=== PATIENT | male | born 1975 | race Caucasian/White ===

== ENCOUNTER → 2019-03-18 | Outpatient (CLI) | payer OTHER ==
[~2019-03-18] MED LIST: Bactrim Ds Tab1 EACH PO; Naprosyn500 MG PO; Percocet 5-3251 EACH PO; Ultram50 MG PO
[2019-03-18 14:12] LABS: BASOPHILS ABSOLUTE AUTO 0.05 K/mm3 (0.00-0.23); BASOPHILS PERCENT AUTO 1 % (0-2); EOSINOPHILS ABSOLUTE AUTO 0.02 K/mm3 (0.00-0.68); EOSINOPHILS PERCENT AUTO 0 % (0-6); Hematocrit 49.1 % (37.0-53.0); Hemoglobin 17.4 g/dL (13.5-17.5); IMMATURE GRAN ABSOLUTE AUTO 0.03 K/mm3 (0.00-0.10); IMMATURE GRAN PERCENT AUTO 0 % (0-1); LYMPHOCYTES ABSOLUTE AUTO 1.91 K/mm3 (0.84-5.20); LYMPHOCYTES PERCENT AUTO 19 % (21-46); MONOCYTES ABSOLUTE AUTO 0.59 K/mm3 (0.16-1.47); MONOCYTES PERCENT AUTO 6 % (4-13); Mean Corpuscular HGB 32.8 pg (26.0-34.0); Mean Corpuscular HGB Conc 35.4 g/dL (31.5-36.5); Mean Corpuscular Volume 93 fL (80-100); Mean Platelet Volume 9.5 fL (9.1-12.4); NEUTROPHILS ABSOLUTE AUTO 7.74 K/mm3 (1.96-9.15); NEUTROPHILS PERCENT AUTO 75 % (41-73); Platelet Count 418 K/mm3 (150-400); RDW Coefficient Variation 11.5 % (11.7-14.2); RDW Standard Deviation 38.9 fL (35.1-46.3); Red Blood Cell Count 5.31 M/mm3 (4.30-5.90); White Blood Cell Count 10.34 K/mm3 (4.00-11.30)
[2019-03-18 14:28] LABS: Alanine Aminotransfer (ALT/SGP 28 U/L (12-78); Albumin, Blood 4.1 g/dL (3.4-5.0); Albumin/Globulin Ratio 1.2 (0.8-1.8); Alk Phos 103 U/L (40-126); Anion Gap 14 mmol/L (6-16); Aspartate Aminotrans (AST/SGOT 25 U/L (12-37); Bilirubin, Total 0.4 mg/dL (0.1-1.0); Blood Urea Nitrogen 8 mg/dL (8-24); Bun/Creatinine Ratio 8.9 (12.0-20.0); CO2, Blood 28 mmol/L (21-32); Calcium, Blood 9.8 mg/dL (8.5-10.1); Chloride, Blood 97 mmol/L (98-108); Globulin, Blood 3.5 g/dL (2.2-4.0); Glomerular Filtration Rate >60 (60-); Glucose, Blood 91 mg/dL (70-99); Potassium, Blood 3.8 mmol/L (3.5-5.5); Sodium, Blood 139 mmol/L (136-145); Thyroid Stimulating Hormone 1.816 uIU/mL (0.360-4.800); Total Protein, Blood 7.6 g/dL (6.4-8.2)
[2019-03-19 06:35] LABS: Adenovirus F 40/41 Not Detected (NOT DETECT); Astrovirus Not Detected (NOT DETECT); Campylobacter Sp Not Detected (NOT DETECT); Cryptosporidium Not Detected (NOT DETECT); Cyclospora Cayetanensis Not Detected (NOT DETECT); E. Coli O157 Not Detected (NOT DETECT); Entamoeba Histolytica Not Detected (NOT DETECT); Enteroaggregative E. coli-EAEC Not Detected (NOT DETECT); Enteropathogenic E. coli-EPEC Not Detected (NOT DETECT); Enterotoxigenic E. coli-ETEC Not Detected (NOT DETECT); Giardia Lamblia Not Detected (NOT DETECT); Norovirus GI/GII Not Detected (NOT DETECT); Plesiomonas Shigelloides Not Detected (NOT DETECT); Rotavirus A Not Detected (NOT DETECT); Salmonella Sp Not Detected (NOT DETECT); Sapovirus Not Detected (NOT DETECT); Shiga Toxin-prod E. coli-STEC Not Detected (NOT DETECT); Shigella/Enteroin E. coli-EIEC Not Detected (NOT DETECT); Vibrio Cholerae Not Detected (NOT DETECT); Vibrio Sp Not Detected (NOT DETECT); Yersinia Enterocolitica Not Detected (NOT DETECT)
== END | disposition home or self-care (01) ==
LOC: LAB SHORT 14:02 → LAB EV 14:02
PROVIDERS: General Practice
DX: R11.10 Vomiting, unspecified (principal); R19.7 Diarrhea, unspecified
CPT/HCPCS: 80053; 84439; 84443; 85025; 85651; 87507

== ENCOUNTER 2019-04-26 07:07 | Day surgery (SDC) | payer OTHER ==
[~2019-04-26] VITALS: Ht 177.8 cm; Wt 62.3 kg
== END 2019-04-26 09:10 | disposition home or self-care (01) ==
LOC: ORSCSDS 07:07
PROVIDERS: Student in an Organized Health Care Education/Training Program
PROC: 0DB98ZX Excision of Duodenum, Via Natural or Artificial Opening Endoscopic, Diagnostic (ICD-10-PCS; principal; 2019-04-26 08:30)
PROC: 0DB58ZX Excision of Esophagus, Via Natural or Artificial Opening Endoscopic, Diagnostic (ICD-10-PCS; principal; 2019-04-26 08:30)
PROC: 0DB68ZX Excision of Stomach, Via Natural or Artificial Opening Endoscopic, Diagnostic (ICD-10-PCS; principal; 2019-04-26 08:30)
DX: R11.2 Nausea with vomiting, unspecified (principal); R19.7 Diarrhea, unspecified; B96.81 Helicobacter pylori [H. pylori] as the cause of diseases classified elsewhere; K26.9 Duodenal ulcer, unspecified as acute or chronic, without hemorrhage or perforation; K29.80 Duodenitis without bleeding; R63.4 Abnormal weight loss; K20.9 Esophagitis, unspecified; K29.70 Gastritis, unspecified, without bleeding; F17.210 Nicotine dependence, cigarettes, uncomplicated
CPT/HCPCS: 88305; 88312; 88342; J0461; J2405; J2704; J7120

== ENCOUNTER 2019-06-02 20:56 | Emergency (ER) | payer OTHER ==
[~2019-06-02] VITALS: Ht 177.8 cm; Wt 63.0 kg
[2019-06-02] MEDS ORDERED: PROM25 (21:07)
[2019-06-02 21:54] LABS: BASOPHILS ABSOLUTE AUTO 0.05 K/mm3 (0.00-0.23); BASOPHILS PERCENT AUTO 0 % (0-2); EOSINOPHILS ABSOLUTE AUTO 0.02 K/mm3 (0.00-0.68); EOSINOPHILS PERCENT AUTO 0 % (0-6); Hematocrit 42.9 % (37.0-53.0); Hemoglobin 15.1 g/dL (13.5-17.5); IMMATURE GRAN ABSOLUTE AUTO 0.06 K/mm3 (0.00-0.10); IMMATURE GRAN PERCENT AUTO 0 % (0-1); LYMPHOCYTES ABSOLUTE AUTO 1.67 K/mm3 (0.84-5.20); LYMPHOCYTES PERCENT AUTO 11 % (21-46); MONOCYTES ABSOLUTE AUTO 0.53 K/mm3 (0.16-1.47); MONOCYTES PERCENT AUTO 4 % (4-13); Mean Corpuscular HGB 32.8 pg (26.0-34.0); Mean Corpuscular HGB Conc 35.2 g/dL (31.5-36.5); Mean Corpuscular Volume 93 fL (80-100); Mean Platelet Volume 9.2 fL (9.1-12.4); NEUTROPHILS ABSOLUTE AUTO 12.38 K/mm3 (1.96-9.15); NEUTROPHILS PERCENT AUTO 84 % (41-73); Platelet Count 427 K/mm3 (150-400); RDW Coefficient Variation 11.9 % (11.7-14.2); RDW Standard Deviation 41.1 fL (35.1-46.3); Red Blood Cell Count 4.61 M/mm3 (4.30-5.90); White Blood Cell Count 14.71 K/mm3 (4.00-11.30)
[2019-06-02 22:09] LABS: Alanine Aminotransfer (ALT/SGP 26 U/L (12-78); Albumin, Blood 3.9 g/dL (3.4-5.0); Albumin/Globulin Ratio 1.2 (0.8-1.8); Alk Phos 91 U/L (50-136); Anion Gap 8 mmol/L (6-16); Aspartate Aminotrans (AST/SGOT 18 U/L (12-37); Bilirubin, Total 0.4 mg/dL (0.1-1.0); Blood Urea Nitrogen 13 mg/dL (8-24); Bun/Creatinine Ratio 15.6 (12.0-20.0); CO2, Blood 29 mmol/L (21-32); Calcium, Blood 9.4 mg/dL (8.5-10.1); Chloride, Blood 103 mmol/L (98-108); Creatinine, Blood 0.84 mg/dL (0.60-1.20); Globulin, Blood 3.2 g/dL (2.2-4.0); Glomerular Filtration Rate >60 (60-); Glucose, Blood 102 mg/dL (70-99); Potassium, Blood 3.4 mmol/L (3.5-5.5); Sodium, Blood 140 mmol/L (136-145); Total Protein, Blood 7.1 g/dL (6.4-8.2)
[2019-06-02] MEDS ORDERED: ONDA4ODT MM (23:27)
== END 2019-06-02 23:39 | disposition home or self-care (01) ==
LOC: ER 20:56
PROVIDERS: Physician Assistant
DX: R11.2 Nausea with vomiting, unspecified (principal); R19.7 Diarrhea, unspecified; Z79.899 Other long term (current) drug therapy; F17.200 Nicotine dependence, unspecified, uncomplicated
CPT/HCPCS: 36415; 80053; 85025; 87338; 96361; 96374; 99284-25; A9270-GY; J2405; J7030

== ENCOUNTER 2019-09-21 10:03 | Inpatient (IN) | payer OTHER ==
[~2019-09-21] VITALS: Ht 177.8 cm; Wt 54.0 kg
[~2019-09-21 10:03] MED LIST changes: +ONDA4ODT MM; +PROM25
[2019-09-21] MEDS ORDERED: ESOM20 PO (10:22)
[2019-09-21 13:02] LABS: BASOPHILS ABSOLUTE AUTO 0.07 K/mm3 (0.00-0.23); BASOPHILS PERCENT AUTO 0 % (0-2); EOSINOPHILS ABSOLUTE AUTO 0.05 K/mm3 (0.00-0.68); EOSINOPHILS PERCENT AUTO 0 % (0-6); Hematocrit 54.8 % (37.0-53.0); IMMATURE GRAN ABSOLUTE AUTO 0.13 K/mm3 (0.00-0.10); IMMATURE GRAN PERCENT AUTO 1 % (0-1); LYMPHOCYTES PERCENT AUTO 6 % (21-46); MONOCYTES ABSOLUTE AUTO 1.03 K/mm3 (0.16-1.47); MONOCYTES PERCENT AUTO 4 % (4-13); Mean Corpuscular HGB 31.8 pg (26.0-34.0); Mean Corpuscular HGB Conc 34.7 g/dL (31.5-36.5); Mean Corpuscular Volume 92 fL (80-100); Mean Platelet Volume 9.5 fL (9.1-12.4); NEUTROPHILS ABSOLUTE AUTO 21.26 K/mm3 (1.96-9.15); NEUTROPHILS PERCENT AUTO 89 % (41-73); Platelet Count 621 K/mm3 (150-400); RDW Coefficient Variation 12.4 % (11.7-14.2); RDW Standard Deviation 42.4 fL (35.1-46.3); Red Blood Cell Count 5.97 M/mm3 (4.30-5.90); White Blood Cell Count 23.94 K/mm3 (4.00-11.30)
[2019-09-21 13:20] LABS: Alanine Aminotransfer (ALT/SGP 16 U/L (12-78); Albumin, Blood 2.9 g/dL (3.4-5.0); Albumin/Globulin Ratio 0.8 (0.8-1.8); Alk Phos 96 U/L (50-136); Anion Gap 9 mmol/L (6-16); Aspartate Aminotrans (AST/SGOT 15 U/L (12-37); Bilirubin, Total 0.4 mg/dL (0.1-1.0); Blood Urea Nitrogen 24 mg/dL (8-24); Bun/Creatinine Ratio 21.2 (12.0-20.0); CO2, Blood 32 mmol/L (21-32); Calcium, Blood 12.1 mg/dL (8.5-10.1); Chloride, Blood 89 mmol/L (98-108); Creatinine, Blood 1.13 mg/dL (0.60-1.20); Globulin, Blood 3.5 g/dL (2.2-4.0); Glomerular Filtration Rate >60 (60-); Glucose, Blood 202 mg/dL (70-99); Potassium, Blood 3.2 mmol/L (3.5-5.5); Sodium, Blood 130 mmol/L (136-145); Total Protein, Blood 6.4 g/dL (6.4-8.2)
[2019-09-21 13:29] LABS: Thyroxine (T4) 13.8 ug/dL (4.5-12.1)
[2019-09-21 13:31] LABS: Thyroid Stimulating Hormone 3.54 uIU/mL (0.360-4.800)
--- NOTE | 2019-09-21 18:20 | NUR ---
PATIENT'S HEART RATE REMAINS IN THE 140'S DESPITE 4L OF FLUIDS. DR WHYTE NOTIFIED AND STATES SHE WILL ENTER ORDERS FOR LABS AND ABX.
[2019-09-21 19:22] LABS: Free Thyroxine 1.28 ng/dL (0.70-1.60)
[2019-09-21 19:24] LABS: Triiodothyronine, Free <0.50 pg/mL (2.18-3.98)
[2019-09-21 20:47] LABS: Anion Gap 14 mmol/L (6-16); Blood Urea Nitrogen 24 mg/dL (8-24); Bun/Creatinine Ratio 20.2 (12.0-20.0); CO2, Blood 22 mmol/L (21-32); Chloride, Blood 99 mmol/L (98-108); Creatinine, Blood 1.19 mg/dL (0.60-1.20); Glomerular Filtration Rate >60 (60-); Glucose, Blood 148 mg/dL (70-99); Potassium, Blood 3.7 mmol/L (3.5-5.5); Sodium, Blood 135 mmol/L (136-145)
--- NOTE | 2019-09-21 21:24 | NUR ---
CRICAL LACTIC ACID/ PCU TRANSFER 1899 REPORT TAKEN FROM TERRY MARTINEZ TO ASSUME CARE OF PT AT THIS TIME. DAYSOHFT RN CASIE BLAND REPORTS THAT PT HR HAS REMAINED ELEVATED SINCE ADMISSION TO THE FLOOR DESPITE BEING BOLUSED WITH FLUIDS AND RECEIVING ADENOSINE IN THE ER. PT ALSO HAD A RUN OF SVT WHILE IN THE ER. ABX HAD JUST BEEN ORDERED, BUT NO RESULTS OF LACTIC ACID, AND BLOOD CX HAD NOT BEEN ORDERED AT THIS TIME. PT RECEIVED 4L OF LR IN THE ER. 1918 RESULTS CALLED TO TERRY MARTINEZ WITH THIS RN STANDING BY THAT LACTIC ACID CRITICAL AT 4.6 1927 VITALS OBTAINED. REPORT FROM DARYN VELÁSQUEZ THAT PT HR REMAINS ELEVATED SHE REPORTS HR IN THE 140'S. ERECTOR OPERATOR'S MARBIN HOLLY, AND MATTHIEU MOORE NOTIFIED OF HR AND LACTIC ACID. PT LABS REVIEWED. PT IS HYPERTENSIVE. WBC, HR, PLT, AND LACTIC ELEVATED. ERIC VILLARREAL NP CALLED AND NOTIFED OF PT LACTIC ACID, AND HR. I EXPRESSED MY CONCERN FOR POSSIBLE SEPSIS, AND NOTIFIED HER THAT PT HAD ALREADY RECEIVED 4L OF LR IN THE ER. SHE ORDERED ANOTHER 2L OF LR, AND TO REPEAT VITALS Q 4HR. NO ADDITIONAL ORDERS. 1946 BLOOD CX ORDERED ON PT, PER AMADNA VILLARREAL NP. PT WITH SEVERE NAUSEA AND VOMITTING. IV ZOFRAN GIVEN. 1958 1 BOLUS OF LR INITIATED AT 1956, AND TRANSFER TO PCU ORDERED. PT AND FAMILY NOTIFIED OF CURRENT POC, AND TRANSFER TO PCU. 2008 REPORT GIVEN TO GENERAL TECHNICIAN TO ASSUME CARE OF PT AT THIS TIME. LAB IN ROOM OBTAINING BLOOD CX AT THIS TIME. 2029 BLOOD CX OBTAINED, IV ROCEPHIN STARTED AND PT SENT TO PCU. BELONGINGS INTACT.
[2019-09-21 23:31] LABS: PCO2 Arterial 26.7 mmHg (35-45); PO2 Arterial 72.8 mmHg (80-100); pH Blood Arterial 7.38 (7.35-7.45)
--- NOTE | 2019-09-21 23:31 | NUR ---
PT UPDATE 2100 SINCE ARRIVAL PT HAS HAD EPISODES OF CONTINUED N/V OFF AND ON, AND HAS HAD 100ML OF EMESIS. PT HAD 2L LR AFTER ARRIVAL TO UNIT AT 2030 IN PIV. NS INFUSING AT 125/HR. PT REPORTS NO LONGER COLD, TAKING BLANKETS OFF AND DIAPHORETIC. HANDS WERE NOTED ON ARRIVAL TO BE BLUE/PURPLE IN COLOR W/ CAP REFIL OF 10 SEC. HANDS NOW PINK IN COLOR, STILL COOL TO TOUCH BUT CAP REFIL 3SEC. PT RESTING IN BED COMFORTABLY AT THIS TIME. REPORTS STILL SOME ABD CRAMPING BUT NAUSEA UNDER CONTROL. 2200 PT REPORTS N/V IN ROOM. 200ML EMESIS NOTED AT THIS TIME. REGLAN GIVEN PER EMAR. PT REPORTS ABD CRAMPS STILL THERE, NOT GETTING WORSE. LR BOLUS STILL INFUSING. NS AND POTASSIUM CHLORIDE INF IN OTHER PIV. 2245 LAB CALLED TO UPDATE RN ON LACTIVE ACID INCREASED FROM 4.8 TO 7.3 PROVIDER CALLED AT THIS TIME TO UPDATE ON STATUS. PT IS TACHYPNIC IN ROOM AND HR HAS STARTED TO INCREASE AGAIN AT THIS TIME TO 140S-150S. PROVIDER TO COME TO ROOM AND EVALUATE PT. [address] ORDERED AND PT TO GET IV CONTRAST. ADDITIONAL 3L NS BOLUS ORDERED FOR PT, 2L CURRENTLY INFUSING IN BILAT IV'S. PT TOLERATING FLUID BOLUS WELL. LS REMAIN CLEAR. PT TO CT W/ HUMAN INTELLIGENCE. PT STATUS CHANGE TO ICU AT THIS TIME. TEMP TERRY PLACED IN PT D/T LARGE AMOUNTS OF IV FLUIDS AND ONLY 300ML URINE OUTPUT IN LAST 12HRS. PT REPORTS CONTINUED ABD CRAMPING, BUT NO FURTHER N/V. STAT ABG TO BE DRAWN BY RT. WILL GIVE BEDSIDE REPORT TO SLIVER LAP MACHINE TENDER AFTER PT RETURNS FROM CT. FAMILY WILL BE CALLED TO UPDATE ON STATUS.
--- NOTE | 2019-09-22 00:17 | NUR ---
FLUID BOLUS CLARIFICATION NOTE PROVIDER ORDERED 3L NS BOLUS AT 2330. 2L WERE PULLED FROM PYXIS AND CHARTED IN OVERRIDE MEDS. THIRD LITER WAS BOLUSED FROM ALREADY INFUSING NS BAG. SO PT WAS BEING BOLUSED WITH 2L NS AT TIME OF TRANSFER TO ICU, WITH THIRD BAG READY TO START THIRD LITER HANGING ON IV POLE FOR A TOTAL OF 3L NS BOLUS.
[2019-09-22 00:54] LABS: International Normalized Ratio 1.22; Prothrombin Time Results 12.7 Sec (9.7-11.5)
[2019-09-22 02:28] LABS: Source, Urine Clean Catch
[2019-09-22 02:31] LABS: Appearance, Urine Clear (Clear); Bilirubin, Urine Neg (Neg); Blood, Urine 5+ (Neg); Color, Urine Amber (P-Yellow); Glucose Qualitative, Urine Neg (Neg); Ketones, Urine 1+ (Neg); Leukocyte Esterase, Urine 1+ (Neg); Nitrite, Urine Neg (Neg); Protein, Urine 2+ (Neg); Urobilinogen, Urine 1+ (Normal)
[2019-09-22 02:36] LABS: Bacteria Many /hpf; Hyaline Casts 0-2 /lpf (0-2); Red Blood Cells, Urine 0-2 /hpf (0-2); Squamous Epithelial Cells Not Seen /hpf (Few)
[2019-09-22 02:41] LABS: U Amphetamine Screen Not Detected; U Barbituate Screen Not Detected; U Benzodiazapine Screen Not Detected; U Buprenorphine Screen Not Detected; U Cannabinoids Screen DETECTED; U Cocaine Screen Not Detected; U Methadone Screen Not Detected; U Methamphetamine Screen Not Detected; U Opiates Screen DETECTED; U Oxycodone Screen Not Detected; U Phencyclidine Screen Not Detected; U Propoxyphene Screen Not Detected
--- NOTE | 2019-09-22 03:20 | NUR ---
23:50 RECEIVED PATIENT FROM PCU. RECEIVED BEDSIDE REPORT, I HAD REVIEWED CHART PRIOR TO ARRIVAL. PT. DENIES PAIN, HR 150, BP 120S/80S. 00:20 RECEIVED NOTIFICATION FROM FUENTES PATEL THAT DR. HSU WAS CALLED IN FOR EMERGENT PERF. BOWEL SURGERY. CALLED FAMILY, INFORMED DRDany WAS COMING IN TO EVALUATE PATIENT. INFORMED PATIENT THAT SURGEON WAS COMING IN TO EVALUATE AT BEDSIDE, ASKED HOW HE FELT ABOUT SURGERY IF NEEDED, HE SAID HE WAS OK WITH IT. 01:[address] HSU AT BEDSIDE, INFORMED THE OR TEAM WAS TO BE CALLED IN FOR EMERGENT SURGERY, INFORMED AUTOMOBILE CARPETS MOLDER. 02:00 FAMILY ARRIVED AT BEDSIDE, QUESTIONS ANSWERED, INFORMED TO WAIT IN ICU WAITING ROOM AFTER PATIENT LEAVES FOR OR. VERY PLEASANT. 02:30 ANESTHESIA AT BEDSIDE FOR QUESTIONING, CONSENT OBTAINED FOR TREATMENT IN OR. 02:45 OR NURSE ARRIVES TO UNIT TO GET PATIENT TO OR GURNEY. REQUESTED PLACEMENT OF MONITOR, WAS INFORMED "NO NEED, WE'LL HOOK HIM UP IN OR." INFORMED OF CURRENT VITALS, INCREASING HR. 02:50 PATIENT LEFT FOR OR. MONITORING EQUIPMENT REMOVED, TKO PLACED ON STANDBY. LR STARTED PER DR. STUART, ANESTHESIA. 03:00 RECEIVED CALL FROM FUENTES PATEL WITH CONCERN FOR DIC. ELEVATED COAGS, PT, PTT, ASKED FOR STAT TYPE AND CROSS. 03:05 ARRIVE TO O.R. ROOM 2 WITH LAB PERSONEL, ASK DR. HSU DIRECTLY FOR TYPE AND CROSS, INFORMED "NO. HE'S FINE, WE'RE ABOUT TO START." 03:08 ARRIVE BACK TO UNIT, INFORMED FUENTES PATEL OF LACK OF LAB DRAW. CALLED LAB, CONFIRMED NO PINK TUBE IN WAITING. WILL DRAW WHEN PT. BACK FROM OR IF NOT DONE DURING OPERATION.
--- NOTE | 2019-09-22 03:27 | NUR ---
09/22/19 0327 Imelda Westbrook A PATIENT CAME TO OR WITH TERRY CATHETER IN PLACE
[2019-09-22 05:48] LABS: Hematocrit 46.6 % (37.0-53.0); Hemoglobin 15.3 g/dL (13.5-17.5); Mean Corpuscular HGB 32.1 pg (26.0-34.0); Mean Corpuscular HGB Conc 32.8 g/dL (31.5-36.5); Mean Platelet Volume 9.7 fL (9.1-12.4); Platelet Count 334 K/mm3 (150-400); RDW Coefficient Variation 12.5 % (11.7-14.2); RDW Standard Deviation 45.4 fL (35.1-46.3); Red Blood Cell Count 4.77 M/mm3 (4.30-5.90)
--- NOTE | 2019-09-22 05:55 | NUR ---
05:05 PATIENT ARRIVES BACK FROM OR. LR CONTINUED PER DR HSU, ON 15L NRB, LUNG SOUNDS CLEAR TO AUSCULTATION. PATIENT ALERT, EASILY ORIENTED AFTER A FEWW MINUTES. MILDLY RESTLESS, EASILY REASSURED, INFORMED TO LIE STILL UNTIL OXYGENATION IMPROVES, COMPLIES. HR 125 TEMP 98.2 RR 30 BP 130S/70S SPO2 88%. SPO2 IMPROVED BY LYING ON BACK, DOING SOME DEEP BREATHING EXERCISES, NOW 94%, TITRATING DOWN NRB. SINUS TACH, 2+ PULSES THROUGHOUT, AFEBRILE. MIDLINE INCISION COVERED WITH WOUND VAC HOOKED TO TONY VAC. CONFIRMED TO BE IN GOOD WORKING ORDER (BLINKING GREEN LIGHT PRESENT) WITH OR NURSE. TERRY IN PLACE BEFORE, NO CHANGE. SKIN STILL INTACT SAVE FOR MIDLINE INCISION. WILL CONTINUE TO MONITOR.
[2019-09-22 05:57] LABS: Mean Corpuscular Volume 98 fL (80-100)
[2019-09-22 06:00] LABS: Magnesium, Blood 1.2 mg/dL (1.6-2.4)
[2019-09-22 06:01] LABS: Bilirubin, Total 0.2 mg/dL (0.1-1.0); Bun/Creatinine Ratio 18.4 (12.0-20.0); Calcium, Blood 8.1 mg/dL (8.5-10.1); Creatinine, Blood 1.52 mg/dL (0.60-1.20); Potassium, Blood 5.1 mmol/L (3.5-5.5)
[2019-09-22 06:06] LABS: Albumin, Blood 0.9 g/dL (3.4-5.0); Albumin/Globulin Ratio 0.6 (0.8-1.8); Globulin, Blood 1.6 g/dL (2.2-4.0); Total Protein, Blood 2.5 g/dL (6.4-8.2)
[2019-09-22 06:21] LABS: BAND PERCENT MAN 19 % (0-8); BASOPHILS PERCENT MAN 0 % (0-2); EOSINOPHILS ABSOLUTE MAN 0.12 K/mm3 (0.00-0.68); EOSINOPHILS PERCENT MAN 2 % (0-6); LYMPHOCYTES % ATYPICAL MANUAL 6 % (0-0); LYMPHOCYTES ABSOLUTE MAN 1.76 K/mm3 (0.84-5.20); LYMPHOCYTES PERCENT MAN 23 % (21-46); METAMYELOCYTE ABSOLUTE MAN 0.24 K/mm3 (0.00-0.00); METAMYELOCYTE PERCENT MAN 4 % (0-0); MONOCYTES ABSOLUTE MAN 0.18 K/mm3 (0.16-1.47); MONOCYTES PERCENT MAN 3 % (4-13); MYELOCYTE ABSOLUTE MAN 0.06 K/mm3 (0.00-0.00); MYELOCYTE PERCENT MAN 1 % (0-0); NEUTROPHILS ABSOLUTE MAN 3.72 K/mm3 (1.96-9.15); SEG NEUTROPHILS PERCENT MAN 42 % (41-73); TOTAL CELLS COUNTED 100
--- NOTE | 2019-09-22 08:05 | NUR ---
ASSUMED CARE RECEIVED REPORT FROM GAYLE MARTINEZ. PT IS LYING IN BED AWAKE, ALERT AND ORIENTED X 4. HE HAS SCD'S ON BILATERAL CALVES, A PATENT TERRY CATHETER DRAINING URINE. VITALS ARE STABLE. LR IS INFUSING AT 100ML/HR, AND NS TKO. BED IS LOW AND LOCKED. CALL LIGHT WITHIN REACH.
--- NOTE | 2019-09-22 08:42 | NUR ---
Echocardiogram completed.
--- NOTE | 2019-09-22 09:00 | NUR ---
DR. WHYTE IN TO SEE PATIENT. NO UPDATES, AND WILL REPLACE LOW MAGNESIUM LEVEL.
--- NOTE | 2019-09-22 14:46 | NUR ---
UPDATE REMOVED NG TUBE. PT TOLERATED IT WELL. TERRY REMAINS IN PLACE, DRAINING URINE.
--- NOTE | 2019-09-22 17:41 | NUR ---
Per admit trigger, I met with David to offer prayer and emotional support. He says he feels "so much better" and expressed gratitude for the care he has received by physician and nursing. No concerns or fears presented. Prayer for continued healing provided. I will remain available.
--- NOTE | 2019-09-22 18:16 | NUR ---
SHIFT SUMMARU PT HAD NO MAJOR EVENTS TODAY, ASIDE HIS PROLONGED, ASYMPTOMATIC SINUS TACHYCARDIA. HIS RATE WAS 120-140'S ALL DAY. OCCASIONALLY WAS LESS THAN 120. HE IS ON LR AT 75ML/HR CURRENTLY, AND NS TKO. BLOOD PRESSURES HAVE BEEN STABLE. HE HAS BEEN WEANED OFF OXYGEN AND IS ON ROOM AIR, SAT'ING 94%. HE HAS A LOW GRADE FEVER IN THE 99.0-100.0. PT DENIES ANY PAIN OR DISCOMFORT OF ANY KIND. STATES HE FEELS SO MUCH BETTER. NG TUBE WAS HOOKED UP TO LIS, BUT HSU INSTRUCTED TO TAKE THAT OUT, AND LEAVE THE TERRY CATHETER IN TO MONITOR URINE OUTPUT. HE WAS GIVEN APPROX. 10 L OF FLUID SINCE ADMISSION. BUT ONLY HAD 275ML OF URINE OUTPUT FOR MY SHIFT. NO BM TODAY. SCD'S IN PLACE. FAMILY VISITED TODAY. HE TOLERATED ICE CHIPS WELL. BED IS LOW AND ROSEANNE. CALL LIGHT IS WITHIN REACH.
--- NOTE | 2019-09-22 20:35 | NUR ---
ASSUMED PT CARE FROM JUAN ANDRADE AT 1915 PT SITTING UP IN BED WITH FAMILY AT BEDSIDE. DOES NOT APPEAR TO BE IN ANY DISTRESS AT THIS TIME. DENIES PAIN, WELL N/V. CALL LIGHT WITHIN REACH; PT ABLE TO MAKE NEEDS KNOWN. WILL CONTINUE TO MONITOR.
[2019-09-23 03:15] LABS: Hematocrit 37.8 % (37.0-53.0); Hemoglobin 13.3 g/dL (13.5-17.5); Mean Corpuscular HGB 32.4 pg (26.0-34.0); Mean Corpuscular HGB Conc 35.2 g/dL (31.5-36.5); Mean Platelet Volume 9.2 fL (9.1-12.4); Platelet Count 335 K/mm3 (150-400); Red Blood Cell Count 4.11 M/mm3 (4.30-5.90); White Blood Cell Count 17.58 K/mm3 (4.00-11.30)
[2019-09-23 03:17] LABS: Mean Corpuscular Volume 92 fL (80-100)
[2019-09-23 03:34] LABS: Albumin, Blood 1.2 g/dL (3.4-5.0); Albumin/Globulin Ratio 0.4 (0.8-1.8); Bilirubin, Total 0.4 mg/dL (0.1-1.0); Bun/Creatinine Ratio 20.7 (12.0-20.0); Calcium, Blood 8.2 mg/dL (8.5-10.1); Creatinine, Blood 1.84 mg/dL (0.60-1.20); Globulin, Blood 2.7 g/dL (2.2-4.0); Magnesium, Blood 1.9 mg/dL (1.6-2.4); Phosphorus, Blood 3.6 mg/dL (2.5-4.9); Potassium, Blood 5.1 mmol/L (3.5-5.5); Total Protein, Blood 3.9 g/dL (6.4-8.2)
--- NOTE | 2019-09-23 06:40 | NUR ---
END OF SHIFT SUMMARY ABDOMINAL DRESSING INTACT, NO OOZING, WOUND VAC PATENT AND RUNNING. NO COMPLAINTS OF PAIN, N/V. HR INTO 150S, 5 LOPRESSOR GIVEN. HR DOWN TO 130S. URINE OUTPUT INCREASED SINCE LAST SHIFT, STILL DELORIS. BUN TRENDING UP. CALL LIGHT WITHIN REACH, WILL CONTINUE MONITOR UNTIL HANDED OFF TO ONCOMING RN
--- NOTE | 2019-09-23 07:20 | NUR ---
ASSUMED CARE RECEIVED REPORT FROM SUJATA RN. PT IS LYING IN BED AWAKE, ALERT AND ORIENTED TO SELF, PLACE, SITUATION, AND TIME. HE DENIES ANY PAIN, NAUSEA, SOB, OR ANY DISCOMFORT AT THIS TIME. HIS HEART RATE IS TACHY IN THE 130'S, BUT WITH A STABLE BP. HE REMAINS ON ROOM AIR SAT'ING MID 90'S. HE HAS SCD'S ON BILATERAL CALVES. BED IS LOW AND LOCKED. CALL LIGHT WITHIN REACH.
--- NOTE | 2019-09-23 08:15 | NUR ---
DR HSU SAW PT. TRANSFERING HIM TO SURGICAL STATUS, WITH NO NEED FOR TELLY. HE IS NOT CONCERNED ABOUT THE SINUS TACHYCARDIA. PUTTING HIM ON CLEAR LIQUIDS, AND SUPPLEMENTING WITH CLINIMIX AND LIPIDS. PT WILL STILL REQUIRE TERRY CATHETER UNTIL WE CAN TAKE CARE OF HIS POSITIVE FLUID BALANCE.
--- NOTE | 2019-09-23 09:00 | NUR ---
SPOKE WITH DR WHYTE, DISCUSSED PATIENT. SHE HAS NO CHANGES AT THIS TIME. CONTINUE ZOSYN, AND SHE AGREED WITH DR. HSU'S ORDERS.
--- NOTE | 2019-09-23 09:15 | NUR ---
ULTRASOUND IN ROOM. PT WILL AMBULATE TO SHOWER AFTER. CLINIMIX AND LIPIDS WILL BE STARTED AFTER SHOWER.
--- NOTE | 2019-09-23 17:31 | NUR ---
SHIFT SUMMARY POD #1 S/P EX-LAP AND SMALL BOWEL RESECTION FOR PERFORATED ULCER. TONY TO MIDLINE IN PLACE WITH NO DRAINAGE NOTED. HR AT 120'S SINCE ARRIVING FROM ICU AROUND 1630 TODAY. REPORTS NO DISCOMFORT/PAIN; DENIES N/V OR PASSING FLATUS. TERRY IN PLACE DRAINING CLEAR/YELLOW URINE. IVF/ABX RUNNING PER ORDER. TOLERATING CL DIET. CURRENTLY UP IN CHAIR WATCHING TV WITH CALL LIGHT IN HAND. WILL CONT. TO MONITOR FOR CHANGE AND GIVE REPORT TO ONCOMING RN.
--- NOTE | 2019-09-23 19:12 | NUR ---
HR AT 130 BPM. TELE APPLIED PER PROTOCOL; HR IN SINUS TACH PER TREASURY DIRECTOR. LOPRESSOR 5MG GIVEN PER EMAR AT 191 TODAY. HR AT 191 IN 110'S BPM. PT DENIES DISCOMFORT OR CHEST PAIN. IS CURRENTLY SITTING in CHAIR VISITING WITH SISTER WHILE CONSUMING CL DINNER TRAY. HAS CALL LIGHT WITHIN REACH. WILL CONTINUE TO MONITOR AND GIVE REPORT TO ON COMING RN.
--- NOTE | 2019-09-23 23:03 | NUR ---
PHONE CALL TO AMANDA. DISCUSSED PTS LABS,CURRENT VS AND TRENDS, RESP ASSESSMENT INCLUDING RHONCHI T/O, AND PT WITH PANTING LIKE RESPIRATIONS ALTHOUGH HE DENIES SOB.ALSO ADVISED OF OUTPUT VIA TERRY.NO NEW ORDERS RECEIVED. INSTRUCTED TO CONTINUE TO MONITOR AND CALL FOR FURTHER CONCERNS.
--- NOTE | 2019-09-24 02:41 | NUR ---
WITH CK PER BIOLOGICAL AIDE PT FOUND STANDING AT WINDOW SIDE STRETCHING IV TUBING AND TERRY. STAT LOCK OFF REQUIRINING REPLACEMENT. PT STATED TO BIOLOGICAL AIDE HE IS PASSING GAS AND READY TO GO HOME. STATED DR TOLD HIM WHEN HE IS PASSING GAS HE COULD GO HOME.NURSE AND BIOLOGICAL AIDE DISCUSSED WITH PT ABNORMAL VS,MEDS, LABS. ADVISED ALTHOUGH PASSING FLATUS, NOT QUITE READY FOR DISCHARGE HOME.DR WILL NEED TO WRITE ORDER WHEN TIME ARRIVES. PT VERB UNDERSTANDING.
[2019-09-24 04:49] LABS: Hematocrit 34.9 % (37.0-53.0); Hemoglobin 11.9 g/dL (13.5-17.5); Mean Corpuscular HGB 31.6 pg (26.0-34.0); Mean Corpuscular HGB Conc 34.1 g/dL (31.5-36.5); Mean Corpuscular Volume 93 fL (80-100); Mean Platelet Volume 9.6 fL (9.1-12.4); Platelet Count 242 K/mm3 (150-400); RDW Coefficient Variation 12.8 % (11.7-14.2); RDW Standard Deviation 44.2 fL (35.1-46.3); Red Blood Cell Count 3.76 M/mm3 (4.30-5.90); White Blood Cell Count 13.41 K/mm3 (4.00-11.30)
[2019-09-24 05:14] LABS: Magnesium, Blood 1.9 mg/dL (1.6-2.4)
[2019-09-24 05:15] LABS: Alanine Aminotransfer (ALT/SGP 80 U/L (12-78); Albumin, Blood 1.3 g/dL (3.4-5.0); Albumin/Globulin Ratio 0.4 (0.8-1.8); Alk Phos 65 U/L (50-136); Anion Gap 5 mmol/L (6-16); Aspartate Aminotrans (AST/SGOT 129 U/L (12-37); Bilirubin, Total 0.5 mg/dL (0.1-1.0); Blood Urea Nitrogen 28 mg/dL (8-24); Bun/Creatinine Ratio 26.9 (12.0-20.0); CO2, Blood 26 mmol/L (21-32); Calcium, Blood 8.6 mg/dL (8.5-10.1); Chloride, Blood 103 mmol/L (98-108); Creatinine, Blood 1.04 mg/dL (0.60-1.20); Globulin, Blood 3.3 g/dL (2.2-4.0); Glomerular Filtration Rate >60 (60-); Glucose, Blood 102 mg/dL (70-99); Phosphorus, Blood 1.9 mg/dL (2.5-4.9); Potassium, Blood 3.7 mmol/L (3.5-5.5); Sodium, Blood 134 mmol/L (136-145); Total Protein, Blood 4.6 g/dL (6.4-8.2)
[2019-09-24 05:30] LABS: BAND PERCENT MAN 13 % (0-8); BASOPHILS PERCENT MAN 0 % (0-2); EOSINOPHILS PERCENT MAN 0 % (0-6); LYMPHOCYTES PERCENT MAN 9 % (21-46); METAMYELOCYTE ABSOLUTE MAN 0.26 K/mm3 (0.00-0.00); METAMYELOCYTE PERCENT MAN 2 % (0-0); MONOCYTES ABSOLUTE MAN 0.53 K/mm3 (0.16-1.47); MONOCYTES PERCENT MAN 4 % (4-13); NEUTROPHILS ABSOLUTE MAN 11.39 K/mm3 (1.96-9.15); SEG NEUTROPHILS PERCENT MAN 72 % (41-73); TOTAL CELLS COUNTED 100
--- NOTE | 2019-09-24 07:26 | NUR ---
SUMMARY MED X1 FOR TACH 130. PT CONT TO DENY SOB OR CP. APPEARING LESS PANTING RESP THIS AM. ALSO DECREASE IN EDEMA BLE.
--- NOTE | 2019-09-24 09:27 | NUR ---
TERRY CATHETER REMOVED AT 0900. DISCUSSED CATHETER WITH DR. WHYTE. SHE FELT THAT PT COULD USE THE URINAL INDEPENDENTLY AND DID NOT REQUIRE A CATHETER TO MONITOR INTAKE AND OUTPUT.
--- NOTE | 2019-09-24 18:50 | NUR ---
SHIFT SUMMARY PT HAS BEEN UP TO CHAIR AND AMBULATED HALLWAY SEVERAL TIMES TODAY. PT SEEMS TO HAVE SOME CONFUSION AND HAS BEEN ON BED AND CHAIR ALARM. REPORTED NO PAIN TODAY. FAMILY HAS BEEN IN TO SEE PT. HR WAS HIGH SEVERAL TIMES TODAY; PT MEDICATED WITH IV METOPROLOL PER ORDERS. DR AWARE OF TACHYCARDIA AND MENTATION. ASSISTED WITH ADL'S PRN.
--- NOTE | 2019-09-25 04:38 | NUR ---
SHIFT SUMMARY PATIENT UP IN A CHAIR UNTIL MIDNIGHT THEN SLEPT INTERMITTENTLY. HIS CHAIR AND BED ALARM WERE ON ALL NIGHT. PATIENT IS IMPULSIVE AND DOES NOT REMEMBER WHERE HE IS OR THAT HE IS ATTACHED TO MACHINES WITH TUBES AND WIRES. PATIENT IS ORIENTED TO SELF, FAMILY, AND PAST EVENTS. MOTHER AND FATHER CAREGIVERS STATE THAT PATIENT IS DIFFERENT, CONFUSED, AND JUST NOT THE SAME MENTALLY SINCE HE MOVED OUT OF THE ICU. THEY WILL BOTHE BE BACK IN THE MORNING TO SPEAK WITH DR WHYTE. PATIENT HAS HAD NO COMPLAINTS OF PAIN OR ANY OTHER ISSUES. PATIENT WAS REDIRECTED AWAY FROM GOING OUT SIDE TO SMOKE A CIGARETTE, THIS IS WHEN HE DECIDED TO GO TO SLEEP INSTEAD. PATIENT HAD HIS URINARY CATH OUT YESTERDAY AND BEGAN HIS NIGHT WITH FREQUENT VOIDS. HE IS NOT HAVING URGENCY THIS MORNING. PATIENT DOES NOT USE HIS CALL LIGHT, STAFF ARE ALERTED TO HIS NEEDS ONLY WHEN THE ALARM IS TRIPPED.
[2019-09-25 06:32] LABS: BASOPHILS ABSOLUTE AUTO 0.07 K/mm3 (0.00-0.23); BASOPHILS PERCENT AUTO 0 % (0-2); EOSINOPHILS ABSOLUTE AUTO 0.04 K/mm3 (0.00-0.68); EOSINOPHILS PERCENT AUTO 0 % (0-6); Hematocrit 34.1 % (37.0-53.0); IMMATURE GRAN ABSOLUTE AUTO 0.12 K/mm3 (0.00-0.10); IMMATURE GRAN PERCENT AUTO 1 % (0-1); LYMPHOCYTES ABSOLUTE AUTO 1.03 K/mm3 (0.84-5.20); LYMPHOCYTES PERCENT AUTO 6 % (21-46); MONOCYTES ABSOLUTE AUTO 1.46 K/mm3 (0.16-1.47); MONOCYTES PERCENT AUTO 8 % (4-13); Mean Corpuscular HGB 32.1 pg (26.0-34.0); Mean Corpuscular HGB Conc 35.2 g/dL (31.5-36.5); Mean Corpuscular Volume 91 fL (80-100); Mean Platelet Volume 10.1 fL (9.1-12.4); NEUTROPHILS ABSOLUTE AUTO 15.05 K/mm3 (1.96-9.15); NEUTROPHILS PERCENT AUTO 85 % (41-73); Platelet Count 222 K/mm3 (150-400); RDW Coefficient Variation 13.2 % (11.7-14.2); RDW Standard Deviation 43.6 fL (35.1-46.3); Red Blood Cell Count 3.74 M/mm3 (4.30-5.90); White Blood Cell Count 17.77 K/mm3 (4.00-11.30)
[2019-09-25 06:47] LABS: Alanine Aminotransfer (ALT/SGP 82 U/L (12-78); Albumin, Blood 1.5 g/dL (3.4-5.0); Albumin/Globulin Ratio 0.4 (0.8-1.8); Alk Phos 85 U/L (50-136); Anion Gap 6 mmol/L (6-16); Aspartate Aminotrans (AST/SGOT 77 U/L (12-37); Bilirubin, Total 0.4 mg/dL (0.1-1.0); Blood Urea Nitrogen 18 mg/dL (8-24); Bun/Creatinine Ratio 21.6 (12.0-20.0); CO2, Blood 27 mmol/L (21-32); Calcium, Blood 8.8 mg/dL (8.5-10.1); Chloride, Blood 104 mmol/L (98-108); Creatinine, Blood 0.83 mg/dL (0.60-1.20); Globulin, Blood 3.7 g/dL (2.2-4.0); Glomerular Filtration Rate >60 (60-); Glucose, Blood 98 mg/dL (70-99); Magnesium, Blood 1.8 mg/dL (1.6-2.4); Phosphorus, Blood 2.4 mg/dL (2.5-4.9); Potassium, Blood 3.4 mmol/L (3.5-5.5); Sodium, Blood 137 mmol/L (136-145); Total Protein, Blood 5.2 g/dL (6.4-8.2)
--- NOTE | 2019-09-25 15:22 | NUR ---
PARTIAL SHIFT SUMMARY PT HAS AMBULATED, DENIED PAIN, TOLERATING CLEAR LQS BUT NOT VERY INTERESTED IN THEM. HAD BM TODAY. PASSING GAS.
--- NOTE | 2019-09-25 15:40 | NUR ---
THIS RN RECENTLY RECIEVED REPORT AND IS ASSUMING CARE OF PT.
--- NOTE | 2019-09-25 18:04 | NUR ---
PT BEEN ASSISTED WITH ADL'S PRN. PT BEEN UP IN CHAIR. PT PLEASANT AND COOP WITH CARE.
[2019-09-26 03:56] LABS: BASOPHILS ABSOLUTE AUTO 0.02 K/mm3 (0.00-0.23); BASOPHILS PERCENT AUTO 0 % (0-2); EOSINOPHILS ABSOLUTE AUTO 0.07 K/mm3 (0.00-0.68); EOSINOPHILS PERCENT AUTO 1 % (0-6); Hematocrit 32.5 % (37.0-53.0); Hemoglobin 11.2 g/dL (13.5-17.5); IMMATURE GRAN ABSOLUTE AUTO 0.15 K/mm3 (0.00-0.10); IMMATURE GRAN PERCENT AUTO 1 % (0-1); LYMPHOCYTES ABSOLUTE AUTO 1.44 K/mm3 (0.84-5.20); LYMPHOCYTES PERCENT AUTO 10 % (21-46); MONOCYTES ABSOLUTE AUTO 1.72 K/mm3 (0.16-1.47); MONOCYTES PERCENT AUTO 12 % (4-13); Mean Corpuscular HGB 32.2 pg (26.0-34.0); Mean Corpuscular HGB Conc 34.5 g/dL (31.5-36.5); Mean Corpuscular Volume 93 fL (80-100); NEUTROPHILS ABSOLUTE AUTO 11.03 K/mm3 (1.96-9.15); NEUTROPHILS PERCENT AUTO 77 % (41-73); Platelet Count 184 K/mm3 (150-400); RDW Coefficient Variation 13.2 % (11.7-14.2); RDW Standard Deviation 45.7 fL (35.1-46.3); Red Blood Cell Count 3.48 M/mm3 (4.30-5.90); White Blood Cell Count 14.43 K/mm3 (4.00-11.30)
[2019-09-26 04:12] LABS: Anion Gap 6 mmol/L (6-16); Blood Urea Nitrogen 12 mg/dL (8-24); Bun/Creatinine Ratio 15.4 (12.0-20.0); CO2, Blood 24 mmol/L (21-32); Chloride, Blood 111 mmol/L (98-108); Creatinine, Blood 0.78 mg/dL (0.60-1.20); Glomerular Filtration Rate >60 (60-); Glucose, Blood 99 mg/dL (70-99); Magnesium, Blood 1.8 mg/dL (1.6-2.4); Potassium, Blood 3.2 mmol/L (3.5-5.5); Sodium, Blood 141 mmol/L (136-145)
--- NOTE | 2019-09-26 04:56 | NUR ---
PATIENT HAS HAD 2 LOOSE/LIQUID STOOLS IN PAST [address] TOPETE WAS NOTIFIED AT 0400, ADVISED TO WAIT TO TALK TO DAY SHIFT MD. BILAT LE DEPENDANT EDEMA. ALERT AND COOPERATIVE WITH ALL CARE. NO ACUTE CHANGES
--- NOTE | 2019-09-26 16:28 | NUR ---
SHIFT SUMMARY NO ACUTE CHANGES THIS SHIFT. PT REMAINS TACHY AND TELE IN PLACE. GIVEN LOPRESSOR X1 BRINGING HR DOWN FROM 150S-120S. PT DENIES PAIN AND N/V. MELI FULL LIQ DIET. PT PASSING GAS AND HAVING LOOSE BMS TODAY. AMBULATING HALLWAYS INDEPENDENTLY WITH ASSISTANCE FOR LINES/CORDS. PT HAS BEEN IN CHAIR MOST OF SHIFT. CLINIMIX AND IV ABX ORDERED. TONY WOUND VAC IS CDI. CALL LIGHT WITHIN REACH.
--- NOTE | 2019-09-27 06:11 | NUR ---
SHIFT SUMMARY PT RESTED WELL T/O NIGHT. AAOX4. POD#5. PT REPORTING DISCOMFORT AT TOLERABLE LEVEL T/O NIGHT, NO NAUSEA/EMESIS. ABD INCISION WITH TONY C/D/I. TELEMETRY IN PLACE. SINUS TACH IN 120s TO 130s T/O NIGHT. PT INDEPENDENT IN ROOM. MULTIPLE LIQUID/GREEN STOOLS THIS SHIFT. TOLERATING DIET WELL. IVF + ABX PER ORDERS. PT SITTING UP IN BED WATCHING TV THIS AM WITH CALL LIGHT IN REACH.
[2019-09-27 08:02] LABS: Hematocrit 33.2 % (37.0-53.0); Hemoglobin 11.4 g/dL (13.5-17.5); Mean Corpuscular HGB 31.8 pg (26.0-34.0); Mean Corpuscular HGB Conc 34.3 g/dL (31.5-36.5); Mean Corpuscular Volume 93 fL (80-100); Mean Platelet Volume 9.9 fL (9.1-12.4); Platelet Count 210 K/mm3 (150-400); RDW Coefficient Variation 13.2 % (11.7-14.2); RDW Standard Deviation 45.3 fL (35.1-46.3); Red Blood Cell Count 3.59 M/mm3 (4.30-5.90); White Blood Cell Count 17.73 K/mm3 (4.00-11.30)
[2019-09-27 08:24] LABS: BAND PERCENT MAN 1 % (0-8); BASOPHILS PERCENT MAN 0 % (0-2); EOSINOPHILS ABSOLUTE MAN 0.17 K/mm3 (0.00-0.68); EOSINOPHILS PERCENT MAN 1 % (0-6); LYMPHOCYTES ABSOLUTE MAN 2.48 K/mm3 (0.84-5.20); LYMPHOCYTES PERCENT MAN 14 % (21-46); MONOCYTES ABSOLUTE MAN 2.12 K/mm3 (0.16-1.47); MONOCYTES PERCENT MAN 12 % (4-13); NEUTROPHILS ABSOLUTE MAN 12.94 K/mm3 (1.96-9.15); SEG NEUTROPHILS PERCENT MAN 72 % (41-73); TOTAL CELLS COUNTED 100
--- NOTE | 2019-09-27 11:13 | NUR ---
DR PERES IN TO SEE PT. FAMILY AT BEDSIDE.
[2019-09-27 12:15] LABS: Albumin, Blood 1.5 g/dL (3.4-5.0); Anion Gap 9 mmol/L (6-16); Blood Urea Nitrogen 8 mg/dL (8-24); Bun/Creatinine Ratio 13.1 (12.0-20.0); CO2, Blood 20 mmol/L (21-32); Calcium, Blood 7.6 mg/dL (8.5-10.1); Chloride, Blood 107 mmol/L (98-108); Creatinine, Blood 0.61 mg/dL (0.60-1.20); Glomerular Filtration Rate >60 (60-); Glucose, Blood 74 mg/dL (70-99); Potassium, Blood 3.7 mmol/L (3.5-5.5); Sodium, Blood 136 mmol/L (136-145)
[2019-09-27 13:13] LABS: Magnesium, Blood 1.6 mg/dL (1.6-2.4)
[2019-09-27 13:15] LABS: Thyroid Stimulating Hormone 7.9 uIU/mL (0.360-4.800)
--- NOTE | 2019-09-27 14:19 | NUR ---
transferred to [facility] 8 PT INDER CASTILLO IN 140S. DISCUSSED W/DR PERES AND ORDERS OBTAINED TO TRANSFER TO [facility]. REPORT GIVEN TO OWEN. PT TRANSFERRED W/POSSESSIONS TO [facility] 8.
[2019-09-27 14:27] LABS: Free Thyroxine 0.91 ng/dL (0.70-1.60)
[2019-09-27 14:30] LABS: Triiodothyronine, Free 1.21 pg/mL (2.18-3.98)
--- NOTE | 2019-09-27 14:34 | NUR ---
PT TRANSFERED. PT TRANSFERED TO PCU8. BEDSIDE REPORT COMPLETED. CARDIZEM DRIP STARTED. WILL CONTINUE TO MONITOR.
--- NOTE | 2019-09-27 17:47 | NUR ---
SHIFT SUMMARY PT TRANSFERED FROM SURGICAL. PT CURRENTLY SINUS TACH IN THE 130S. PT ON A CARDIZEM DRIP 15ML/HR. PT TOLERATING WELL, BUT CONTIUNES TO BE TACHY. NO OTHER CHANGES IN ASSESSMENT AT THIS TIME. LS CLEAR. TONY WOUND VAC ON ABD INTACT. PT CONTINUES TO HAVE LOOSE GREENISH BROWN STOOLS. IND IN ROOM. OTHER VITALS STABLE. WILL CONTINUE TO MONITOR UNTIL TURNOVER IS COMPLETE.
[2019-09-28 04:50] LABS: BASOPHILS ABSOLUTE AUTO 0.09 K/mm3 (0.00-0.23); BASOPHILS PERCENT AUTO 0 % (0-2); EOSINOPHILS PERCENT AUTO 0 % (0-6); Hemoglobin 11.6 g/dL (13.5-17.5); Mean Corpuscular HGB 31.4 pg (26.0-34.0); Mean Corpuscular HGB Conc 33.1 g/dL (31.5-36.5); Mean Corpuscular Volume 95 fL (80-100); Mean Platelet Volume 9.7 fL (9.1-12.4); Platelet Count 250 K/mm3 (150-400); RDW Coefficient Variation 13.2 % (11.7-14.2); RDW Standard Deviation 46.2 fL (35.1-46.3); Red Blood Cell Count 3.69 M/mm3 (4.30-5.90); White Blood Cell Count 22.74 K/mm3 (4.00-11.30)
[2019-09-28 04:51] LABS: IMMATURE GRAN ABSOLUTE AUTO 1.02 K/mm3 (0.00-0.10); IMMATURE GRAN PERCENT AUTO 5 % (0-1); LYMPHOCYTES ABSOLUTE AUTO 2.77 K/mm3 (0.84-5.20); LYMPHOCYTES PERCENT AUTO 12 % (21-46); MONOCYTES ABSOLUTE AUTO 2.37 K/mm3 (0.16-1.47); MONOCYTES PERCENT AUTO 10 % (4-13); NEUTROPHILS ABSOLUTE AUTO 16.39 K/mm3 (1.96-9.15); NEUTROPHILS PERCENT AUTO 72 % (41-73)
[2019-09-28 05:08] LABS: BAND PERCENT MAN 3 % (0-8); BASOPHILS PERCENT MAN 0 % (0-2); EOSINOPHILS PERCENT MAN 0 % (0-6); LYMPHOCYTES PERCENT MAN 4 % (21-46); MONOCYTES ABSOLUTE MAN 0.45 K/mm3 (0.16-1.47); MONOCYTES PERCENT MAN 2 % (4-13); MYELOCYTE ABSOLUTE MAN 0.22 K/mm3 (0.00-0.00); MYELOCYTE PERCENT MAN 1 % (0-0); NEUTROPHILS ABSOLUTE MAN 20.92 K/mm3 (1.96-9.15); PROMYELOCYTE ABSOLUTE MAN 0.22 K/mm3 (0.00-0.00); PROMYELOCYTE PERCENT MAN 1 % (0-0); SEG NEUTROPHILS PERCENT MAN 89 % (41-73); TOTAL CELLS COUNTED 100
[2019-09-28 05:12] LABS: Albumin, Blood 1.3 g/dL (3.4-5.0); Anion Gap 8 mmol/L (6-16); Blood Urea Nitrogen 9 mg/dL (8-24); Bun/Creatinine Ratio 11.7 (12.0-20.0); CO2, Blood 21 mmol/L (21-32); Calcium, Blood 7.7 mg/dL (8.5-10.1); Chloride, Blood 109 mmol/L (98-108); Creatinine, Blood 0.77 mg/dL (0.60-1.20); Glomerular Filtration Rate >60 (60-); Glucose, Blood 94 mg/dL (70-99); Phosphorus, Blood 2.5 mg/dL (2.5-4.9); Potassium, Blood 3.5 mmol/L (3.5-5.5); Sodium, Blood 138 mmol/L (136-145)
--- NOTE | 2019-09-28 06:11 | NUR ---
SHIFT SUMMARY PT RESTING IN ROOM COMFORTABLY AT THIS TIME. NO ACUTE CHANGES IN STATUS T/O NIGHT. PT SLEPT WELL T/O NIGHT DENIED NEEDS. PT USED URINAL W/O ASSIST CALLED TO EMPTY. RESP EVEN UNLABORED ON RA W/ SATS >925. DENIED CP OR SOB. WOUND VAC IN PLACE OVER ABD INCISION, SITE C/D/I. PT REPORTS NO ABD PAIN. CARDIZEM GTT INFUSING IN POWERGLIDE IN ARSALAN AT 15ML/HR. HR HAS SLIGHTLY DECREASED BUT REMAINS 110'S-120'S. CALL LIGHT IN REACH.
[2019-09-28 13:41] LABS: Source, Urine Clean Catch
[2019-09-28 14:03] LABS: Bilirubin, Urine Neg (Neg); Blood, Urine Neg (Neg); Glucose Qualitative, Urine Neg (Neg); Ketones, Urine Neg (Neg); Leukocyte Esterase, Urine Neg (Neg); Nitrite, Urine Neg (Neg); Protein, Urine 1+ (Neg); Specific Gravity, Urine 1.005 (1.003-1.022); Urobilinogen, Urine NORM (Normal)
[2019-09-28 14:28] LABS: Appearance, Urine Clear (Clear); Color, Urine Yellow (P-Yellow)
--- NOTE | 2019-09-28 16:10 | NUR ---
FOLLOW UP CALLED DR CHOU AND DR MI REGARDING PT. PT REMAINS TACHYCARDIC 125-130'S. PT DECLINES ANY PAIN/DISCOMFORT CURRENTLY. ORDERS FOR IVF RECEIVED. PT IS CURRENTLY UP IN CHAIR, DECLINES ANY NEEDS.
--- NOTE | 2019-09-28 17:52 | NUR ---
SHIFT SUMMARY PT HAS BEEN UP IN CHAIR MOST OF THE DAY. PT DECLINES PAIN OR DISCOMFORT AND HAS HAD SOFT-LOOSE BM'S TODAY. DR ROMO REMOVED WOUND VAC DRESSING AND ABD INCISION WAS LEFT HEALTH CARE ATTORNEY. MIDLINE INCISION IS APPROXIMATED AND CLOSED WITH EDISON. PT REMAINS IN SINUS TACH ON TELEMETRY 125-130'S, AFEBRILE. CT OF THE ABD WAS COMPLETE AND DR ROMO REVIEWED.
--- NOTE | 2019-09-28 22:04 | NUR ---
RX Lopresser 5 mg IV given for pulse rate 132 with helpful effect. Pulse down after administration to 112 to 119. other VSS. Tolerating diet and activity.
[2019-09-29 04:34] LABS: BASOPHILS ABSOLUTE AUTO 0.07 K/mm3 (0.00-0.23); BASOPHILS PERCENT AUTO 0 % (0-2); EOSINOPHILS PERCENT AUTO 0 % (0-6); Hematocrit 32.6 % (37.0-53.0); Hemoglobin 10.8 g/dL (13.5-17.5); Mean Corpuscular HGB 31.3 pg (26.0-34.0); Mean Corpuscular HGB Conc 33.1 g/dL (31.5-36.5); Mean Corpuscular Volume 95 fL (80-100); Mean Platelet Volume 9.4 fL (9.1-12.4); Platelet Count 343 K/mm3 (150-400); RDW Coefficient Variation 13.2 % (11.7-14.2); Red Blood Cell Count 3.45 M/mm3 (4.30-5.90); White Blood Cell Count 23.84 K/mm3 (4.00-11.30)
[2019-09-29 04:38] LABS: IMMATURE GRAN ABSOLUTE AUTO 0.82 K/mm3 (0.00-0.10); IMMATURE GRAN PERCENT AUTO 3 % (0-1); LYMPHOCYTES PERCENT AUTO 11 % (21-46); MONOCYTES ABSOLUTE AUTO 1.76 K/mm3 (0.16-1.47); MONOCYTES PERCENT AUTO 7 % (4-13); NEUTROPHILS ABSOLUTE AUTO 18.39 K/mm3 (1.96-9.15); NEUTROPHILS PERCENT AUTO 77 % (41-73)
[2019-09-29 04:53] LABS: Albumin, Blood 1.3 g/dL (3.4-5.0); Anion Gap 8 mmol/L (6-16); Blood Urea Nitrogen 10 mg/dL (8-24); Bun/Creatinine Ratio 13.7 (12.0-20.0); CO2, Blood 21 mmol/L (21-32); Calcium, Blood 7.6 mg/dL (8.5-10.1); Chloride, Blood 109 mmol/L (98-108); Creatinine, Blood 0.73 mg/dL (0.60-1.20); Glomerular Filtration Rate >60 (60-); Glucose, Blood 91 mg/dL (70-99); Magnesium, Blood 1.4 mg/dL (1.6-2.4); Phosphorus, Blood 2.2 mg/dL (2.5-4.9); Potassium, Blood 3.8 mmol/L (3.5-5.5); Sodium, Blood 138 mmol/L (136-145)
--- NOTE | 2019-09-29 18:43 | NUR ---
PCU DAYSHIFT SUMMARY PATIENT REMAINS ALERT AND ORIENTED X4 T/O SHIFT. PATIENT INDEPENDENT IN ROOM WITH MINIMAL ASSIST AT TIMES WITH IV TUBING. PATIENT DENIES ANY PAIN T/O SHIFT. MILD FEVER NOTED AT BEGINNING OF SHIFT AND RELIEVED SINCE WITH MEDICATIONS PER EMAR THIS AM. PATIENTS ABD MIDLINE INCISION INTACT OPEN TO AIR - EDISON NOTED, NO S/SX OF REDNESS OR SWELLING NOTED. ABD MILDLY TENDER UPON PALPATION. PATIENT HAVING MULTIPLE SOFT STOOLS AND GAS EPISODES T/O SHIFT - HOSPITALIST JOSÉ ANTONIO NOTIFIED - TO COLLECT SPECIMEN IF STOOL BECOMES LIQUID; PATIENT URINATING INDEPENDENTLY IN URINAL. PATIENT HAS INCREASED SWELLING NOTED IN BLE; 2-3+ PITTING EDEMA NOTED AROUND BILATERAL ANKLES, WITH LEFT ANKLE MORE SWOLLEN THAN RIGHT. PATIENT REMAINED IN SINUS TACH 130'S T/O SHIFT, JOSÉ ANTONIO NOTIFIED, ORDERED TO CONTINUE ON CURRENT EMAR MEDICATION REGIMENT FOR TREATMENT - SEE EMAR, PATIENT REMAINS NONSYMPTOMATIC WITH OTHER VSS. LUNG SOUNDS DIM TO CLEAR IN UPPER LOBES. NO ACUTE CHANGES NOTED T/O SHIFT. CALL LIGHT W/I REACH, PATIENT DENIES ANY NEEDS AT THIS TIME. WILL CONTINUE TO MONITOR AND REPORT TO ONCOMING NOC SHIFT JUAN Tapia
--- NOTE | 2019-09-29 22:48 | NUR ---
CARE ASSUMPTION PT A&O X4. VSS. MONITOR SHOWS ST, HR 120's-130. PT DENIES ABD PAIN/DISCOMFORT. PT FURTHER DENIES PAIN/DISCOMFORT OF ANY KIND. SKIN IMMEDIATELY SURROUNDING ABD MIDLINE INCISION NOTED TO BE SLIGHTLY RED. EDISON IN PLACE TO INCISION W/ SITE OPEN TO AIR. PT REPORTS USING INCENTIVE SPIROMETER Q1H. PT REPORTS MULT LOOSE BM'S TODAY. PT FURTHER REPORTS LAST BM TO BE "MORE FORMED" THAN PREVIOUS. PT TO ALERT STAFF IF STOOL BECOMES MORE LOOSE OR LIQUIDY. WILL CONTINUE TO MONITOR AND PROVIDE CARE.
[2019-09-30 03:56] LABS: BASOPHILS ABSOLUTE AUTO 0.06 K/mm3 (0.00-0.23); BASOPHILS PERCENT AUTO 0 % (0-2); EOSINOPHILS ABSOLUTE AUTO 0.11 K/mm3 (0.00-0.68); EOSINOPHILS PERCENT AUTO 1 % (0-6); Hematocrit 34.2 % (37.0-53.0); Hemoglobin 11.2 g/dL (13.5-17.5); Mean Corpuscular HGB 30.9 pg (26.0-34.0); Mean Corpuscular HGB Conc 32.7 g/dL (31.5-36.5); Mean Corpuscular Volume 94 fL (80-100); Mean Platelet Volume 9.3 fL (9.1-12.4); Platelet Count 434 K/mm3 (150-400); RDW Coefficient Variation 13.2 % (11.7-14.2); RDW Standard Deviation 45.5 fL (35.1-46.3); Red Blood Cell Count 3.63 M/mm3 (4.30-5.90); White Blood Cell Count 23.69 K/mm3 (4.00-11.30)
[2019-09-30 03:58] LABS: IMMATURE GRAN ABSOLUTE AUTO 0.48 K/mm3 (0.00-0.10); IMMATURE GRAN PERCENT AUTO 2 % (0-1); LYMPHOCYTES ABSOLUTE AUTO 2.56 K/mm3 (0.84-5.20); LYMPHOCYTES PERCENT AUTO 11 % (21-46); MONOCYTES PERCENT AUTO 7 % (4-13); NEUTROPHILS ABSOLUTE AUTO 18.88 K/mm3 (1.96-9.15); NEUTROPHILS PERCENT AUTO 80 % (41-73)
[2019-09-30 04:18] LABS: Albumin, Blood 1.3 g/dL (3.4-5.0); Anion Gap 7 mmol/L (6-16); Blood Urea Nitrogen 8 mg/dL (8-24); Bun/Creatinine Ratio 10.7 (12.0-20.0); CO2, Blood 22 mmol/L (21-32); Calcium, Blood 7.6 mg/dL (8.5-10.1); Chloride, Blood 111 mmol/L (98-108); Creatinine, Blood 0.75 mg/dL (0.60-1.20); Glomerular Filtration Rate >60 (60-); Glucose, Blood 79 mg/dL (70-99); Magnesium, Blood 1.5 mg/dL (1.6-2.4); Phosphorus, Blood 2.6 mg/dL (2.5-4.9); Potassium, Blood 3.8 mmol/L (3.5-5.5); Sodium, Blood 140 mmol/L (136-145)
--- NOTE | 2019-09-30 06:28 | NUR ---
SHIFT SUMMARY PT CONTINUES TO BE A&O X4. VSS. MONITOR SHOWS ST, HR 110's-130. SPO2 > 92% ON RA. PT DENIES ABD PAIN/DISCOMFORT T/O SHIFT. NO CHANGES TO SLIGHTLY RED SKIN IMMEDIATELY SURROUNDING ABD INCISION. EDISON CONTINUE TO BE C/D/I, SITE OPEN TO AIR. PT W/ 3 LOOSE BM'S THIS SHIFT. PT REPORTS BM's TO BE GETTING "MORE FORMED". HAT PLACED IN TOILET FOR STOOL COLLECTION FOR BETTER ASSESSMENT. WILL CONTINUE TO MONITOR AND PROVIDE CARE UNTIL REPORT OFF TO DAY SHIFT RN.
--- NOTE | 2019-09-30 16:26 | NUR ---
PT RECENTLY TO ROOM 224. PT DENIES PAIN,N/V,N/T,SOB,CP. PT HAS EDISON TO ABD OPEN TO AIR. DR CHOU WAS NOTIFIED OF TRANSFER WELL WHO REPORTED TO KEEP TELE IN PLACE, TELE REMAINED IN PLACE. PT IS SINUS TACH 120'S. PT PLEASANT AND COOP. PT DENIES DIZZINESS OR LIGHTHEADEDNESS. DISCUSSED WITH PHARMACY SUDEEP KITCHEN. SEE EMAR.
--- NOTE | 2019-09-30 16:35 | NUR ---
TRANSFER OF CARE REPORT GIVEN TO JUAN RAHMAN ON SURGICAL. PT TRANSFERRED TO ROOM 224. ALL BELONGINGS GATHERED AND TRANSFERRED WITH PT. PT WAS TRANSPORTED TO ROOM VIA WHEELCHAIR.
--- NOTE | 2019-09-30 18:27 | NUR ---
PT BEEN RESTING QUIETLY WATCHING TV. PT BEEN USING I/S. PT USED RESTROOM EARLIER. PT BEEN ASSISTED WITH ADL'S PRN. PT RECENTLY MED WITH IV LOPRESSOR PT HAS SUSTAINED A HEART RATE ABOVE 130. PT VSS, HR SLOWLY TRENDING DOWN PER TELE, CURRENTLY 124.
[2019-10-01 06:33] LABS: BASOPHILS ABSOLUTE AUTO 0.07 K/mm3 (0.00-0.23); BASOPHILS PERCENT AUTO 0 % (0-2); EOSINOPHILS ABSOLUTE AUTO 0.07 K/mm3 (0.00-0.68); EOSINOPHILS PERCENT AUTO 0 % (0-6); Hematocrit 34.4 % (37.0-53.0); Hemoglobin 11.4 g/dL (13.5-17.5); IMMATURE GRAN ABSOLUTE AUTO 0.28 K/mm3 (0.00-0.10); IMMATURE GRAN PERCENT AUTO 1 % (0-1); LYMPHOCYTES ABSOLUTE AUTO 2.33 K/mm3 (0.84-5.20); LYMPHOCYTES PERCENT AUTO 11 % (21-46); MONOCYTES ABSOLUTE AUTO 1.35 K/mm3 (0.16-1.47); MONOCYTES PERCENT AUTO 6 % (4-13); Mean Corpuscular HGB 31.3 pg (26.0-34.0); Mean Corpuscular HGB Conc 33.1 g/dL (31.5-36.5); Mean Corpuscular Volume 95 fL (80-100); Mean Platelet Volume 8.9 fL (9.1-12.4); NEUTROPHILS ABSOLUTE AUTO 17.96 K/mm3 (1.96-9.15); NEUTROPHILS PERCENT AUTO 81 % (41-73); Platelet Count 595 K/mm3 (150-400); RDW Standard Deviation 45.1 fL (35.1-46.3); Red Blood Cell Count 3.64 M/mm3 (4.30-5.90); White Blood Cell Count 22.06 K/mm3 (4.00-11.30)
[2019-10-01 06:50] LABS: Albumin, Blood 1.6 g/dL (3.4-5.0); Anion Gap 6 mmol/L (6-16); Blood Urea Nitrogen 6 mg/dL (8-24); Bun/Creatinine Ratio 9.6 (12.0-20.0); CO2, Blood 23 mmol/L (21-32); Calcium, Blood 8.2 mg/dL (8.5-10.1); Chloride, Blood 112 mmol/L (98-108); Creatinine, Blood 0.63 mg/dL (0.60-1.20); Glomerular Filtration Rate >60 (60-); Glucose, Blood 80 mg/dL (70-99); Magnesium, Blood 1.8 mg/dL (1.6-2.4); Phosphorus, Blood 2.9 mg/dL (2.5-4.9); Potassium, Blood 3.8 mmol/L (3.5-5.5); Sodium, Blood 141 mmol/L (136-145)
--- NOTE | 2019-10-01 07:58 | NUR ---
SUMMARY: NO ACUTE CHANGES THIS SHIFT. PT REMAINS TACHYCARDIC BUT MANAGED WITH PO METOPROLOL; AFEBRILE. MINIMAL PAIN CONTROLLED WITH TYLENOL. PT PASSING GAS, HAVING BM, TOLERATING REG DIET AND UP IN ROOM IND. ANTICIPATE DC HOME LATER THIS DAY.
--- NOTE | 2019-10-01 13:22 | NUR ---
PT IN BED VISITING WITH FAMLY AT BEDSIDE. DECLINES PAIN OR ANY DISCOMFORT. HAS CALL LIGHT WITHIN REACH AND IS IND IN ROOM. WILL CONT TO MONITOR.
--- NOTE | 2019-10-01 18:40 | NUR ---
SHIFT SUMMARY NO ACUTE CHANGES THIS SHIFT. ORIENTATION AND VITALS AT BASELINE DURING THE DAY. PATIENT IND IN ROOM. DENIED ANY PAIN OR DISCOMFORT T/O SHIFT. TOLERATING REGULAR DIET. REPORTS VOIDING AND BM WITHOUT DIFFICULTY. AWAITING FAMILY TO RETURN FOR DISCHARGE THIS EVENING. CURRENTLY COLORING IN BED WITH CALL LIGHT WITHIN REACH. WILL CONT. MONITOR AND GIVE REPORT TO ONCOMING RN.
--- NOTE | 2019-10-01 21:15 | NUR ---
DISCHARGE D/C INSTRUCTIONS GIVEN TO PT AND FAMILY BY JUAN. SUJEY AND DINORA VIDAL WNL. PERSONAL BELONGINGS SENT WITH PT. PT AND FAMILY REPORT NO FURTHER QUESTIONS AT THIS TIME. PT TOLERATING PO INTAKE, AMBULATES IND. A/O X4. REPORTS NO PAIN.
== END 2019-10-01 21:26 | disposition home or self-care (01) | DRG 853 ==
LOC: ER 10:03 → ICUW 10:04 → MEDS 10:04 → PCU 20:30 → ICUW 23:25 → PCU 09-22 05:35 → ICUW 09-22 05:35 → SURS 09-23 16:45 → PCU 09-27 14:14 → SURS 09-30 16:04
PROVIDERS: Emergency Medicine; Family Medicine; Nurse Practitioner Acute Care; Surgery; ADMIT Internal Medicine
PROC: 0DT80ZZ Resection of Small Intestine, Open Approach (ICD-10-PCS; principal; 2019-09-22 08:00)
DX: A41.9 Sepsis, unspecified organism (principal); R65.21 Severe sepsis with septic shock; K65.0 Generalized (acute) peritonitis; E43 Unspecified severe protein-calorie malnutrition; J18.9 Pneumonia, unspecified organism; K25.1 Acute gastric ulcer with perforation; N17.9 Acute kidney failure, unspecified; I31.3 Pericardial effusion (noninflammatory); Z68.1 Body mass index [BMI] 19.9 or less, adult; E83.42 Hypomagnesemia; K29.50 Unspecified chronic gastritis without bleeding; K29.80 Duodenitis without bleeding; E87.6 Hypokalemia; F17.210 Nicotine dependence, cigarettes, uncomplicated; Z87.820 Personal history of traumatic brain injury; D64.9 Anemia, unspecified; D47.3 Essential (hemorrhagic) thrombocythemia; E88.09 Other disorders of plasma-protein metabolism, not elsewhere classified; E86.0 Dehydration
CPT/HCPCS: 36415; 36600; 71045; 71046; 74177; 76770; 80048; 80053; 80069; 81001; 82330; 82803; 83520; 83605; 83690; 83735; 83880; 84100; 84145; 84436; 84439; 84443; 84481; 85025; 85027; 85610; 85730; 86850; 86900; 86901; 87040; 87086; 88307; 90686; 93005; 93010; 93306; 96361; 96374-59; 96375; 96376; 99285-25; A9270; C1751; C9113; G0378; J0153; J0696; J1100; J1170; J1650; J1940; J2370; J2405; J2543; J2550; J2704; J2710; J2765; J3010; J3475; J3480; J7030; J7050; J7060; J7120; Q9967

== ENCOUNTER 2019-10-28 18:02 | Inpatient (IN) | payer OTHER ==
[~2019-10-28] VITALS: Ht 177.8 cm; Wt 51.0 kg
[~2019-10-28 18:02] MED LIST changes: +ESOM20 PO
[2019-10-28 19:10] LABS: BASOPHILS ABSOLUTE AUTO 0.08 K/mm3 (0.00-0.23); BASOPHILS PERCENT AUTO 0 % (0-2); EOSINOPHILS ABSOLUTE AUTO 0.04 K/mm3 (0.00-0.68); EOSINOPHILS PERCENT AUTO 0 % (0-6); Hematocrit 38.7 % (37.0-53.0); Hemoglobin 12.7 g/dL (13.5-17.5); IMMATURE GRAN PERCENT AUTO 1 % (0-1); LYMPHOCYTES ABSOLUTE AUTO 2.18 K/mm3 (0.84-5.20); LYMPHOCYTES PERCENT AUTO 12 % (21-46); MONOCYTES ABSOLUTE AUTO 0.74 K/mm3 (0.16-1.47); MONOCYTES PERCENT AUTO 4 % (4-13); Mean Corpuscular HGB 29.7 pg (26.0-34.0); Mean Corpuscular HGB Conc 32.8 g/dL (31.5-36.5); Mean Corpuscular Volume 91 fL (80-100); Mean Platelet Volume 8.3 fL (9.1-12.4); NEUTROPHILS ABSOLUTE AUTO 15.25 K/mm3 (1.96-9.15); NEUTROPHILS PERCENT AUTO 83 % (41-73); Platelet Count 733 K/mm3 (150-400); RDW Coefficient Variation 13.4 % (11.7-14.2); RDW Standard Deviation 43.3 fL (35.1-46.3); Red Blood Cell Count 4.27 M/mm3 (4.30-5.90); White Blood Cell Count 18.39 K/mm3 (4.00-11.30)
[2019-10-28 19:47] LABS: Alanine Aminotransfer (ALT/SGP 28 U/L (12-78); Albumin, Blood 3.2 g/dL (3.4-5.0); Albumin/Globulin Ratio 0.6 (0.8-1.8); Alk Phos 124 U/L (50-136); Anion Gap 7 mmol/L (6-16); Aspartate Aminotrans (AST/SGOT 15 U/L (12-37); Bilirubin, Total 0.2 mg/dL (0.1-1.0); Blood Urea Nitrogen 18 mg/dL (8-24); Bun/Creatinine Ratio 30.2 (12.0-20.0); CO2, Blood 31 mmol/L (21-32); Calcium, Blood 9.5 mg/dL (8.5-10.1); Chloride, Blood 99 mmol/L (98-108); Globulin, Blood 5.2 g/dL (2.2-4.0); Glomerular Filtration Rate >60 (60-); Glucose, Blood 134 mg/dL (70-99); Potassium, Blood 3.2 mmol/L (3.5-5.5); Sodium, Blood 137 mmol/L (136-145); Total Protein, Blood 8.4 g/dL (6.4-8.2)
[2019-10-28 19:59] LABS: Source, Urine Clean Catch
[2019-10-28 20:01] LABS: Bilirubin, Urine Neg (Neg); Blood, Urine Neg (Neg); Glucose Qualitative, Urine Neg (Neg); Ketones, Urine 1+ (Neg); Leukocyte Esterase, Urine Neg (Neg); Nitrite, Urine Neg (Neg); Protein, Urine 2+ (Neg); Urobilinogen, Urine NORM (Normal)
[2019-10-28 20:06] LABS: Appearance, Urine Clear (Clear); Color, Urine Yellow (P-Yellow)
[2019-10-28 20:08] LABS: Bacteria Few /hpf; Red Blood Cells, Urine 0-2 /hpf (0-2); Squamous Epithelial Cells Few /hpf (Few); White Blood Cells, Urine 0-2 /hpf (0-5)
[2019-10-28] MEDS ORDERED: Nicoderm Cq1 EAC1 TOP (20:56)
--- NOTE | 2019-10-29 00:21 | NUR ---
resting quietly, bt+4q denies pain or nausea, vss, potassium and lr infusing with no s/sx of infection or infiltration or irratation
[2019-10-29 04:51] LABS: BASOPHILS ABSOLUTE AUTO 0.06 K/mm3 (0.00-0.23); BASOPHILS PERCENT AUTO 1 % (0-2); EOSINOPHILS ABSOLUTE AUTO 0.23 K/mm3 (0.00-0.68); EOSINOPHILS PERCENT AUTO 2 % (0-6); Hematocrit 33.9 % (37.0-53.0); Hemoglobin 11.1 g/dL (13.5-17.5); IMMATURE GRAN ABSOLUTE AUTO 0.05 K/mm3 (0.00-0.10); IMMATURE GRAN PERCENT AUTO 0 % (0-1); LYMPHOCYTES ABSOLUTE AUTO 2.19 K/mm3 (0.84-5.20); LYMPHOCYTES PERCENT AUTO 17 % (21-46); MONOCYTES ABSOLUTE AUTO 0.84 K/mm3 (0.16-1.47); MONOCYTES PERCENT AUTO 7 % (4-13); Mean Corpuscular HGB 29.8 pg (26.0-34.0); Mean Corpuscular HGB Conc 32.7 g/dL (31.5-36.5); Mean Corpuscular Volume 91 fL (80-100); Mean Platelet Volume 8.3 fL (9.1-12.4); NEUTROPHILS ABSOLUTE AUTO 9.33 K/mm3 (1.96-9.15); NEUTROPHILS PERCENT AUTO 74 % (41-73); Platelet Count 630 K/mm3 (150-400); RDW Coefficient Variation 13.6 % (11.7-14.2); RDW Standard Deviation 44.4 fL (35.1-46.3); Red Blood Cell Count 3.72 M/mm3 (4.30-5.90)
[2019-10-29 05:06] LABS: Albumin, Blood 2.7 g/dL (3.4-5.0); Anion Gap 5 mmol/L (6-16); Blood Urea Nitrogen 17 mg/dL (8-24); Bun/Creatinine Ratio 28.4 (12.0-20.0); CO2, Blood 28 mmol/L (21-32); Calcium, Blood 8.8 mg/dL (8.5-10.1); Chloride, Blood 107 mmol/L (98-108); Glomerular Filtration Rate >60 (60-); Glucose, Blood 100 mg/dL (70-99); Phosphorus, Blood 2.8 mg/dL (2.5-4.9); Potassium, Blood 4.5 mmol/L (3.5-5.5); Sodium, Blood 140 mmol/L (136-145)
--- NOTE | 2019-10-29 06:22 | NUR ---
good night or morning for this pt since he arrived during this shift, a+o, cooperative with care, no emisis or neausea noted during shift, medicated as prescribed, tolerated starting new IV in R fore arm, abx and lr running in different sites due to incompatabilitie. able to converse and answer questions dispite hx of brain damage, family left and pt slept for most of the evein, potassium infused with no reported issue, vss and tele monitoring next medication scheduled for 1400, markell big help admiting pt to floor, denies pain, will continue to monitor and treat until staff
--- NOTE | 2019-10-29 17:33 | NUR ---
SHIFT SUMMARY PT ALERT AND ORIENTED. VS STABLE. HR NSR. PT DENIES ANY NAUSEA/PAIN. LR INFUSING PER ORDERS. PER DR. MARTINS PT ABLE TO HAVE SIPS OF WATER, BUT TO REMAIN NPO. WILL CONTINUE TO MONITOR AND REPORT TO ONCOMING RN. CALL LIGHT IN REACH. PT CALLS APPROPRIATELY.
--- NOTE | 2019-10-29 19:52 | NUR ---
CARE ASSUMPTION PT A&O X4. PT CALM AND COOPERATIVE W/ FLAT AFFECT. MONITOR SHOWS SR-ST, HR 90-110. SPO2 > 92% ON RA. VSS. PT DENIES PAIN/DISCOMFORT OF ANY KIND. PT NPO, W/ OKAY FOR SIPS OF WATER. WILL CONTINUE TO MONITOR AND PROVIDE CARE.
--- NOTE | 2019-10-30 02:57 | NUR ---
EMESIS PT VOMITING APPROX 300 MLS OF CLEAR, WATERY EMESIS. PT W/ FLAT AFFECT, IN BETWEEN VOMITTING PT DENIES NAUSEA, STATING "NO, I FEEL FINE" THEN PROCEDED TO LEAN OVER AND VOMIT AGAIN. PT MEDICATED W/ PRN ZOFRAN PER EMAR. TOOTHBRUSH, TOOTHPASTE, AND MOUTHWASH PROVIDED TO PT. PT RESTING IN BED AT THIS TIME. WILL CONTINUE TO MONITOR AND PROVIDE CARE.
[2019-10-30 04:01] LABS: BASOPHILS ABSOLUTE AUTO 0.09 K/mm3 (0.00-0.23); BASOPHILS PERCENT AUTO 1 % (0-2); EOSINOPHILS ABSOLUTE AUTO 0.07 K/mm3 (0.00-0.68); EOSINOPHILS PERCENT AUTO 0 % (0-6); Hematocrit 34.2 % (37.0-53.0); Hemoglobin 11.1 g/dL (13.5-17.5); IMMATURE GRAN ABSOLUTE AUTO 0.11 K/mm3 (0.00-0.10); IMMATURE GRAN PERCENT AUTO 1 % (0-1); LYMPHOCYTES ABSOLUTE AUTO 1.61 K/mm3 (0.84-5.20); LYMPHOCYTES PERCENT AUTO 8 % (21-46); MONOCYTES PERCENT AUTO 4 % (4-13); Mean Corpuscular HGB Conc 32.5 g/dL (31.5-36.5); Mean Corpuscular Volume 92 fL (80-100); Mean Platelet Volume 8.6 fL (9.1-12.4); NEUTROPHILS ABSOLUTE AUTO 16.42 K/mm3 (1.96-9.15); NEUTROPHILS PERCENT AUTO 86 % (41-73); Platelet Count 615 K/mm3 (150-400); RDW Coefficient Variation 13.7 % (11.7-14.2)
[2019-10-30 04:18] LABS: Albumin, Blood 2.8 g/dL (3.4-5.0); Anion Gap 11 mmol/L (6-16); Blood Urea Nitrogen 15 mg/dL (8-24); Bun/Creatinine Ratio 25.3 (12.0-20.0); CO2, Blood 26 mmol/L (21-32); Calcium, Blood 8.8 mg/dL (8.5-10.1); Chloride, Blood 106 mmol/L (98-108); Creatinine, Blood 0.59 mg/dL (0.60-1.20); Glomerular Filtration Rate >60 (60-); Glucose, Blood 112 mg/dL (70-99); Phosphorus, Blood 3.3 mg/dL (2.5-4.9); Potassium, Blood 3.4 mmol/L (3.5-5.5); Sodium, Blood 143 mmol/L (136-145)
--- NOTE | 2019-10-30 05:38 | NUR ---
SHIFT SUMMARY PT CONTINUES TO BE A&O X4, CALM & COOPERATIVE W/ FLAT AFFECT. MONITOR SHOWS SR-ST, HR 90-110's. HR INCREASING ST 130's w/ AMBULATION TO AND FROM BATHROOM, HR SETTLING BACK TO 90-110's AT REST. VSS. SPO2 > 92% ON RA. PT DENIES NAUSEA, PAIN/DISCOMFORT OF ANY KIND T/O SHIFT. PT W/ EPISODE OF EMESIS, SEE PREVIOUS NOTE, MEDICATED W/ PRN ZOFRAN PER EMAR X1 THIS SHIFT. PT NPO, W/ OKAY FOR SIPS OF WATER, PT PROVIDED W/ 1 SMALL CUP OF ICE CHIPS THIS SHIFT. PT REPORTS COMPLIANCE W/ NPO STATUS EXCEPT ICE CHIPS AND SIPS OF WATER. PT ALSO REPORTING DARK GREEN WATERY DIARRHEA THIS SHIFT X2 IN WHICH PT REPORTS STARTED FRIDAY AFTERNOON. PT RECIEVING IV ZOSYN PER ORDERS WELL LR. WILL CONTINUE TO MONITOR AND PROVIDE CARE UNTIL REPORT OFF TO DAY SHIFT RN.
--- NOTE | 2019-10-30 13:55 | NUR ---
Pt 's heart rate up to 140-150 during activity while shaving in the bathroom. Pt is now back in bed, states that he had NO dyspnea, no discomfort, and felt very good to get up and move around. Reports that he is tolerating clear liquids without any nausea. He has drunk 1 whole gatorAid and says he feels great right now.
--- NOTE | 2019-10-30 17:04 | NUR ---
SHIFT SUMMARY PT REMAINS A&O X4, STAND BY ASSIST IN ROOM. HTN/TACHYCARDIA NOTED, PT ASYMPTOMATIC, HTN @ BASELINE. HR INCREASES WHEN UP TO THE BATHROOM. NO RHYTHM CHANGES NOTED, NSR, ON ROOM AIR. PT DENIES ABD PAIN. STATES HE IS PASSING FLATUS, NO STOOLS REPORTED, PT WAS ADVANCED TO CLEAR LIQUIDS FROM NPO, HE CAN TOLERATE SMALL SIPS BUT BECOMES NAUSEATED WITH BIG AMOUNTS, EMESIS NOTED X1. PT ENC TO SIP SLOWLY. FLUIDS & ABX INFUSED PER EMAR. WCTM, CALL LIGHT IN REACH.
[2019-10-31 04:09] LABS: BASOPHILS ABSOLUTE AUTO 0.08 K/mm3 (0.00-0.23); BASOPHILS PERCENT AUTO 0 % (0-2); EOSINOPHILS ABSOLUTE AUTO 0.02 K/mm3 (0.00-0.68); EOSINOPHILS PERCENT AUTO 0 % (0-6); Hematocrit 33.4 % (37.0-53.0); Hemoglobin 10.8 g/dL (13.5-17.5); IMMATURE GRAN PERCENT AUTO 0 % (0-1); LYMPHOCYTES ABSOLUTE AUTO 1.77 K/mm3 (0.84-5.20); LYMPHOCYTES PERCENT AUTO 8 % (21-46); MONOCYTES ABSOLUTE AUTO 1.16 K/mm3 (0.16-1.47); MONOCYTES PERCENT AUTO 5 % (4-13); Mean Corpuscular HGB 29.6 pg (26.0-34.0); Mean Corpuscular HGB Conc 32.3 g/dL (31.5-36.5); Mean Corpuscular Volume 92 fL (80-100); Mean Platelet Volume 8.5 fL (9.1-12.4); NEUTROPHILS ABSOLUTE AUTO 19.12 K/mm3 (1.96-9.15); NEUTROPHILS PERCENT AUTO 86 % (41-73); Platelet Count 587 K/mm3 (150-400); RDW Standard Deviation 46.1 fL (35.1-46.3); Red Blood Cell Count 3.65 M/mm3 (4.30-5.90); White Blood Cell Count 22.25 K/mm3 (4.00-11.30)
[2019-10-31 04:26] LABS: Alanine Aminotransfer (ALT/SGP 17 U/L (12-78); Albumin, Blood 2.6 g/dL (3.4-5.0); Albumin/Globulin Ratio 0.7 (0.8-1.8); Alk Phos 77 U/L (50-136); Anion Gap 4 mmol/L (6-16); Aspartate Aminotrans (AST/SGOT 11 U/L (12-37); Bilirubin, Total 0.4 mg/dL (0.1-1.0); Blood Urea Nitrogen 13 mg/dL (8-24); Bun/Creatinine Ratio 21.8 (12.0-20.0); CO2, Blood 34 mmol/L (21-32); Calcium, Blood 8.6 mg/dL (8.5-10.1); Chloride, Blood 103 mmol/L (98-108); Globulin, Blood 3.7 g/dL (2.2-4.0); Glomerular Filtration Rate >60 (60-); Glucose, Blood 120 mg/dL (70-99); Magnesium, Blood 1.7 mg/dL (1.6-2.4); Potassium, Blood 3.7 mmol/L (3.5-5.5); Sodium, Blood 141 mmol/L (136-145); Total Protein, Blood 6.3 g/dL (6.4-8.2)
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
[2019-11-01 04:07] LABS: BASOPHILS ABSOLUTE AUTO 0.05 K/mm3 (0.00-0.23); BASOPHILS PERCENT AUTO 0 % (0-2); EOSINOPHILS ABSOLUTE AUTO 0.01 K/mm3 (0.00-0.68); EOSINOPHILS PERCENT AUTO 0 % (0-6); Hematocrit 30.9 % (37.0-53.0); Hemoglobin 9.9 g/dL (13.5-17.5); IMMATURE GRAN ABSOLUTE AUTO 0.12 K/mm3 (0.00-0.10); IMMATURE GRAN PERCENT AUTO 1 % (0-1); LYMPHOCYTES ABSOLUTE AUTO 2.02 K/mm3 (0.84-5.20); LYMPHOCYTES PERCENT AUTO 9 % (21-46); MONOCYTES ABSOLUTE AUTO 1.49 K/mm3 (0.16-1.47); MONOCYTES PERCENT AUTO 7 % (4-13); Mean Corpuscular HGB 29.6 pg (26.0-34.0); Mean Corpuscular Volume 92 fL (80-100); Mean Platelet Volume 9.1 fL (9.1-12.4); NEUTROPHILS ABSOLUTE AUTO 18.06 K/mm3 (1.96-9.15); NEUTROPHILS PERCENT AUTO 83 % (41-73); Platelet Count 564 K/mm3 (150-400); RDW Coefficient Variation 14.6 % (11.7-14.2); RDW Standard Deviation 48.8 fL (35.1-46.3); Red Blood Cell Count 3.35 M/mm3 (4.30-5.90); White Blood Cell Count 21.75 K/mm3 (4.00-11.30)
[2019-11-01 04:41] LABS: Alanine Aminotransfer (ALT/SGP 13 U/L (12-78); Albumin, Blood 2.5 g/dL (3.4-5.0); Albumin/Globulin Ratio 0.7 (0.8-1.8); Alk Phos 69 U/L (50-136); Anion Gap 4 mmol/L (6-16); Aspartate Aminotrans (AST/SGOT 14 U/L (12-37); Bilirubin, Total 0.4 mg/dL (0.1-1.0); Blood Urea Nitrogen 17 mg/dL (8-24); Bun/Creatinine Ratio 30.3 (12.0-20.0); CO2, Blood 36 mmol/L (21-32); Calcium, Blood 8.6 mg/dL (8.5-10.1); Chloride, Blood 98 mmol/L (98-108); Creatinine, Blood 0.56 mg/dL (0.60-1.20); Globulin, Blood 3.6 g/dL (2.2-4.0); Glomerular Filtration Rate >60 (60-); Glucose, Blood 123 mg/dL (70-99); Sodium, Blood 138 mmol/L (136-145); Total Protein, Blood 6.1 g/dL (6.4-8.2)
--- NOTE | 2019-11-01 05:16 | NUR ---
SHIFT SUMMARY PT RESTING IN ROOM COMFORTABLY AT THIS TIME. NO ACUTE CHANGES IN STATUS T/O NGHT. PT REPORTS DID NOT SLEEP WELL, REPORTS "JUST COULDN'T FAll ASLEEP". RESP EVEN UNLABORED ON RA W/ SATS >92%. PT DENIED ANY CP OR SOB T/O NIGHT. DENIED AND ABD PAIN. PT DID NOT REPORT ANY NAUSEA T/O NIGHT. IVF INFUSING IN PIV, ABX INFUSING IN OTHER PIV. DENIES NEEDS. CALL LIGHT IN REACH.
--- NOTE | 2019-11-01 10:00 | NUR ---
ASSUMED CARE AT APPROXIMATELY 0730 PT ALERT AND ORIENTED. HR SINUS TACH 120-140. BP STABLE. O2 SATS REMAIN ABOVE 90% ON RA. PT NAUSEOUS THIS AM. UPON ASSESSMENT EMESIS NOTED IN TRASH CAN IN THE ROOM. PT VOMITED INTO THE EMESIS BAG WITH 800ML OF BROWN EMESIS. DR. CERON CALLED AND UPDATED. ORDERS FOR 1L BOLUS OF NS AND STRICT NPO. DR. CARTER NOTIFIED AND REQUEST FOR ALL ORAL MEDS TO BE IV. PT OFFERED NG TUBE PER DR. CERON AND PT REFUSED. WILL CONTINUE TO MONITOR CLOSELY.
--- NOTE | 2019-11-01 12:42 | NUR ---
Advance Directive Education attempted. Upon receiving an admit referral for advance directive education, I visited patient. Patient stated that he is not interested in advance directive education. Patient was also not interested in a spiritual care visit.
--- NOTE | 2019-11-01 12:45 | NUR ---
Advance directive education conducted. Upon receiving an admit referral for advance directive education, I visited patient. Patient expressed some interest in the document. I explained the content and imporatnce of the A.D. booklet and explained how to fill it out and process of filing it. Patient voiced an understanding and stated that she would look over the information, fill it out and bring it to her PCP.
--- NOTE | 2019-11-01 18:44 | NUR ---
SHIFT SUMMARY PT ALERT AND ORIENTED. BP STABLE. HR HAS BEEN 100-130 SINUS TACH. PT MEDICATED PER ORDERS FOR HR. O2 SATS REMAIN ABOVE 90% ON RA. PT HAS NOT VOMITTED SINCE RECORDED EMESIS THIS AM. PT DENIES NAUSEA. D5 1/2NS WITH KCL INFUSING PER ORDERS. PT STILL STRICT NPO. WILL CONTINUE TO MONITOR AND REPORT TO ONCOMING RN. CALL LIGHT IN REACH.
--- NOTE | 2019-11-02 01:29 | NUR ---
11/01/191939 PT RESTING COMFORTABLY IN BED WITH PARENTS AT SIDE WHOM VERY SUPPORTIVE; PT LIVES WITH PARENTS AT THIS TIME; DENIES PAIN OR NAUSEA.
--- NOTE | 2019-11-02 04:42 | NUR ---
SHIFT SUMMARY: 44 Y/O MALE RESTED COMFORTABLY ALL SHIFT; DENIES ABD PAIN OR NAUSEA; NO BM NOTED THIS SHIFT; VOIDING CLEAR YELLOW FLUID; ALERT AND ORIENTED X 4; HAPPY AND COOPERATIVE; TELEMETRY REFLECTS SINUS TACHYCARDIA WITH HEART RATE 130 (METROPROLOL 2.5MG IVP GIVEN Q6H ORDERED)--AM HEART RATE 117; OLD ABD SCAR FROM SEPTEMBER SURGERY 100% HEALED; BED LOW POSITION WITH CALL LIGHT AT SIDE.
[2019-11-02 10:06] LABS: BASOPHILS ABSOLUTE AUTO 0.06 K/mm3 (0.00-0.23); BASOPHILS PERCENT AUTO 1 % (0-2); EOSINOPHILS ABSOLUTE AUTO 0.18 K/mm3 (0.00-0.68); EOSINOPHILS PERCENT AUTO 2 % (0-6); Hematocrit 20.3 % (37.0-53.0); Hemoglobin 6.4 g/dL (13.5-17.5); IMMATURE GRAN ABSOLUTE AUTO 0.03 K/mm3 (0.00-0.10); IMMATURE GRAN PERCENT AUTO 0 % (0-1); LYMPHOCYTES ABSOLUTE AUTO 2.97 K/mm3 (0.84-5.20); LYMPHOCYTES PERCENT AUTO 29 % (21-46); MONOCYTES ABSOLUTE AUTO 0.74 K/mm3 (0.16-1.47); MONOCYTES PERCENT AUTO 7 % (4-13); Mean Corpuscular HGB Conc 31.5 g/dL (31.5-36.5); Mean Platelet Volume 8.8 fL (9.1-12.4); NEUTROPHILS ABSOLUTE AUTO 6.22 K/mm3 (1.96-9.15); NEUTROPHILS PERCENT AUTO 61 % (41-73); Platelet Count 351 K/mm3 (150-400); RDW Coefficient Variation 15.2 % (11.7-14.2); RDW Standard Deviation 51.9 fL (35.1-46.3); Red Blood Cell Count 2.13 M/mm3 (4.30-5.90)
[2019-11-02 10:07] LABS: Mean Corpuscular Volume 95 fL (80-100)
[2019-11-02 10:22] LABS: Anion Gap 2 mmol/L (6-16); Blood Urea Nitrogen 14 mg/dL (8-24); Bun/Creatinine Ratio 20.5 (12.0-20.0); CO2, Blood 28 mmol/L (21-32); Chloride, Blood 111 mmol/L (98-108); Creatinine, Blood 0.68 mg/dL (0.60-1.20); Glomerular Filtration Rate >60 (60-); Glucose, Blood 95 mg/dL (70-99); Potassium, Blood 4.1 mmol/L (3.5-5.5); Sodium, Blood 141 mmol/L (136-145)
--- NOTE | 2019-11-02 11:10 | NUR ---
UPDATE ASSUMED CARE AT APPROXIMATELY 0730. PT ALERT AND ORIENTED. VS STABLE. HR NSR 80'S. PT DENIES NAUSEA AND VOMITING. DR. HANSEN IN WITH NEW ORDERS TO START CLINIMIX AND LIPIDS. LABS DRAWN AFTER DR. HANSEN LEFT AND DROP IN HGB NOTED. DR. HANSEN CALLED REGAURDING HGB AND POTASSIUM LEVEL. AWAITING RETURN CALL. STATUS CHANGED TO SURGICAL. REPORT CALLED TO SURGICAL FLOOR RN AND PT TAKEN OVER BY WHEELCHAIR.
--- NOTE | 2019-11-02 11:31 | NUR ---
TRANSFERRED TO SURGICAL FLOOR PT ARRIVED FROM PCU TO SURGICAL FLOOR AT APPROX 1115 TODAY. IS A&O W/ HR OF 95 IN NSR. DENIES ANY PAIN, CP, SOB, OR DYSPNEA. TOLERATING CL. REPORTS PASSING FLATUS. HAS IVF RUNNING PER ORDERS. IS CURRENTLY WATCHING TV IN ROOM WITH CALL LIGHT IN REACH. WILL CONT. TO MONITOR.
[2019-11-02 12:05] LABS: Hematocrit 20.7 % (37.0-53.0); Hemoglobin 6.6 g/dL (13.5-17.5)
--- NOTE | 2019-11-02 15:45 | NUR ---
DR. HANSEN NOTIFIED OF 4.1 POTASSIUM LEVEL; VERBAL ORDER OBTAINED TO HOLD IV POTASSIUM TODAY. PLAN TO CHECK LEVEL TOMORROW.
--- NOTE | 2019-11-02 18:01 | NUR ---
SHIFT SUMMARY PT A/O T/O SHIFT. DENIES ANY C/O PAIN OR DISCOMFORT. ADMINISTERED IVF AND ABX PER ORDERS. REPORTS BM THIS AFTERNOON AND VOIDING WITHOUT DIFFICUTLY. WALKS TO BATHROOM W/ SBA AND USES URINAL AT BEDSIDE. VERY PLEASANT AND COOPERATIVE. TOLERATING CL DIET WITHOUT ANY N/V OR PAIN. CURRENTLY RESTING IN BED WHILE WATCHING TV AND RECEIVING ONE UNIT OF BLOOD. HAS CALL LIGHT IN HAND. WILL CONT. TO MONITOR AND GIVE REPORT TO ONCOMING RN .
[2019-11-03 06:11] LABS: BASOPHILS ABSOLUTE AUTO 0.05 K/mm3 (0.00-0.23); BASOPHILS PERCENT AUTO 0 % (0-2); EOSINOPHILS ABSOLUTE AUTO 0.42 K/mm3 (0.00-0.68); EOSINOPHILS PERCENT AUTO 4 % (0-6); Hematocrit 28.3 % (37.0-53.0); Hemoglobin 9.3 g/dL (13.5-17.5); IMMATURE GRAN ABSOLUTE AUTO 0.05 K/mm3 (0.00-0.10); IMMATURE GRAN PERCENT AUTO 0 % (0-1); LYMPHOCYTES ABSOLUTE AUTO 2.02 K/mm3 (0.84-5.20); LYMPHOCYTES PERCENT AUTO 17 % (21-46); MONOCYTES PERCENT AUTO 6 % (4-13); Mean Corpuscular HGB 30.2 pg (26.0-34.0); Mean Corpuscular HGB Conc 32.9 g/dL (31.5-36.5); NEUTROPHILS ABSOLUTE AUTO 8.67 K/mm3 (1.96-9.15); NEUTROPHILS PERCENT AUTO 73 % (41-73); Platelet Count 328 K/mm3 (150-400); RDW Coefficient Variation 15.1 % (11.7-14.2); RDW Standard Deviation 49.2 fL (35.1-46.3); Red Blood Cell Count 3.08 M/mm3 (4.30-5.90); White Blood Cell Count 11.91 K/mm3 (4.00-11.30)
[2019-11-03 06:12] LABS: Mean Corpuscular Volume 92 fL (80-100)
[2019-11-03 06:26] LABS: Alanine Aminotransfer (ALT/SGP 11 U/L (12-78); Albumin, Blood 1.9 g/dL (3.4-5.0); Albumin/Globulin Ratio 0.6 (0.8-1.8); Alk Phos 59 U/L (50-136); Anion Gap 9 mmol/L (6-16); Aspartate Aminotrans (AST/SGOT 16 U/L (12-37); Bilirubin, Total 0.7 mg/dL (0.1-1.0); Blood Urea Nitrogen 10 mg/dL (8-24); CO2, Blood 19 mmol/L (21-32); Calcium, Blood 7.4 mg/dL (8.5-10.1); Chloride, Blood 109 mmol/L (98-108); Creatinine, Blood 0.53 mg/dL (0.60-1.20); Globulin, Blood 3.2 g/dL (2.2-4.0); Glomerular Filtration Rate >60 (60-); Glucose, Blood 86 mg/dL (70-99); Potassium, Blood 3.8 mmol/L (3.5-5.5); Sodium, Blood 137 mmol/L (136-145); Total Protein, Blood 5.1 g/dL (6.4-8.2)
--- NOTE | 2019-11-03 06:30 | NUR ---
SHIFT SUMMARY PT RESTED WELL THIS SHIFT. AAOX4. PT DENIES DISCOMFORT/NAUSEA/EMESIS THIS SHIFT. ABD SCAR FROM PREVIOUS SURGERY HEALING WELL. GOOD PO INTAKE + OUTPUT, MULTIPLE LARGE STOOLS NOTED THIS SHIFT. 2 UNITS OF PRBCs INFUSED THIS SHIFT. CLINIMIX INFUSING + IV ABX PER ORDERS. TELEMETRY IN PLACE, NSR TO ST 80s TO 120s AT TIMES OF AMBULATION, METOPROLOL IV PUSH Q6. PT SBA UP TO RESTROOM, TOLERATES WELL. NO ACUTE CHANGES THIS SHIFT. PT RESTING AT THIS TIME WITH CALL LIGHT IN REACH, NADN.
--- NOTE | 2019-11-03 17:57 | NUR ---
SUMMARY PATIENT TOLERATING REGULAR DIET, DENIES ANY ABD PAIN OR NAUSEA DURING THIS SHIFT. PATIENT REPORTS PASSING LARGE AMOUNTS OF FLATUS. PATIENT INDEPENDENT TO RESTROOM, STEADY ON FEET
--- NOTE | 2019-11-04 06:01 | NUR ---
SHIFT SUMMARY LYING IN LOW FOWLERS WITH EYES CLOSED. HAS REESTED WELL THIS SHIFT. STATES THAT HE IS READY TO GO HOME, BUT HIS MOM TOLD HIM THAT WHEN HE GOT HERE THAT HE WOULD BE HERE FOR A WEEK. DENIES FURTHER NEEDS AT THIS TIME. SAFETY MEAURES IN PLACE. WILL GIVE HAND OFF TO ONCOMING SHIFT USING SBAR.
[2019-11-04 06:11] LABS: BASOPHILS ABSOLUTE AUTO 0.03 K/mm3 (0.00-0.23); BASOPHILS PERCENT AUTO 0 % (0-2); EOSINOPHILS ABSOLUTE AUTO 0.75 K/mm3 (0.00-0.68); EOSINOPHILS PERCENT AUTO 8 % (0-6); Hematocrit 28.8 % (37.0-53.0); Hemoglobin 9.6 g/dL (13.5-17.5); IMMATURE GRAN ABSOLUTE AUTO 0.03 K/mm3 (0.00-0.10); IMMATURE GRAN PERCENT AUTO 0 % (0-1); LYMPHOCYTES ABSOLUTE AUTO 2.15 K/mm3 (0.84-5.20); LYMPHOCYTES PERCENT AUTO 22 % (21-46); MONOCYTES ABSOLUTE AUTO 0.79 K/mm3 (0.16-1.47); MONOCYTES PERCENT AUTO 8 % (4-13); Mean Corpuscular HGB 30.1 pg (26.0-34.0); Mean Corpuscular HGB Conc 33.3 g/dL (31.5-36.5); Mean Corpuscular Volume 90 fL (80-100); Mean Platelet Volume 9.1 fL (9.1-12.4); NEUTROPHILS ABSOLUTE AUTO 6.03 K/mm3 (1.96-9.15); NEUTROPHILS PERCENT AUTO 62 % (41-73); Platelet Count 401 K/mm3 (150-400); RDW Coefficient Variation 14.6 % (11.7-14.2); RDW Standard Deviation 47.4 fL (35.1-46.3); Red Blood Cell Count 3.19 M/mm3 (4.30-5.90); White Blood Cell Count 9.78 K/mm3 (4.00-11.30)
[2019-11-04] MEDS ORDERED: AMOCLA875 PO (10:38)
--- NOTE | 2019-11-04 11:27 | NUR ---
PATIENT D/C'D HOME WITH FATHER AT THIS TIME. CONT DENY PAIN, NAUSEA OR OTHER C/O. TOLERATING DIET. AMBULATING IN [facility]. RX CALLED TO [facility] IN THE MALL.
== END 2019-11-04 11:27 | disposition home or self-care (01) | DRG 871 ==
LOC: ER 18:02 → PCU 22:00 → SURS 22:06 → PCU 22:06 → SURS 11-02 11:12
PROVIDERS: Family Medicine; Hospitalist; Internal Medicine; Nurse Practitioner Acute Care; Physician Assistant; Surgery; ADMIT Hospitalist
DX: A41.9 Sepsis, unspecified organism (principal); K65.1 Peritoneal abscess; R65.20 Severe sepsis without septic shock; E87.6 Hypokalemia; Z87.891 Personal history of nicotine dependence; Z87.820 Personal history of traumatic brain injury; D50.9 Iron deficiency anemia, unspecified; Z90.49 Acquired absence of other specified parts of digestive tract
CPT/HCPCS: 36415; 36430; 74177; 80048; 80053; 80069; 81001; 82728; 83540; 83550; 83605; 83690; 83735; 85014; 85018; 85025; 86850; 86900; 86901; 86923; 87040; 96365-59; 96375; 99285-25; C1751; C9113; J2405; J2543; J2916; J3475; J3480; J7030; J7050; J7120; P9016; Q9967

== ENCOUNTER 2019-12-08 05:23 | Inpatient (IN) | payer OTHER ==
[~2019-12-08] VITALS: Ht 175.3 cm; Wt 53.3 kg
[~2019-12-08 05:23] MED LIST changes: +AMOCLA875 PO; +Nicoderm Cq1 EAC1 TOP
[2019-12-08 06:30] LABS: Alanine Aminotransfer (ALT/SGP 19 U/L (12-78); Albumin, Blood 1.5 g/dL (3.4-5.0); Albumin/Globulin Ratio 0.4 (0.8-1.8); Alk Phos 70 U/L (50-136); Anion Gap 7 mmol/L (6-16); Aspartate Aminotrans (AST/SGOT 8 U/L (12-37); Bilirubin, Total 0.1 mg/dL (0.1-1.0); Blood Urea Nitrogen 37 mg/dL (8-24); Bun/Creatinine Ratio 42.5 (12.0-20.0); CO2, Blood 29 mmol/L (21-32); Calcium, Blood 7.4 mg/dL (8.5-10.1); Chloride, Blood 97 mmol/L (98-108); Creatinine, Blood 0.87 mg/dL (0.60-1.20); Globulin, Blood 3.5 g/dL (2.2-4.0); Glomerular Filtration Rate >60 (60-); Glucose, Blood 133 mg/dL (70-99); Potassium, Blood 3.5 mmol/L (3.5-5.5); Sodium, Blood 133 mmol/L (136-145)
[2019-12-08 06:39] LABS: BASOPHILS ABSOLUTE AUTO 0.03 K/mm3 (0.00-0.23); BASOPHILS PERCENT AUTO 0 % (0-2); EOSINOPHILS PERCENT AUTO 0 % (0-6); IMMATURE GRAN ABSOLUTE AUTO 0.79 K/mm3 (0.00-0.10); IMMATURE GRAN PERCENT AUTO 3 % (0-1); LYMPHOCYTES ABSOLUTE AUTO 1.65 K/mm3 (0.84-5.20); LYMPHOCYTES PERCENT AUTO 5 % (21-46); MONOCYTES ABSOLUTE AUTO 1.63 K/mm3 (0.16-1.47); MONOCYTES PERCENT AUTO 5 % (4-13); Mean Corpuscular HGB 26.2 pg (26.0-34.0); Mean Corpuscular HGB Conc 31.4 g/dL (31.5-36.5); Mean Corpuscular Volume 83 fL (80-100); NEUTROPHILS ABSOLUTE AUTO 27.28 K/mm3 (1.96-9.15); NEUTROPHILS PERCENT AUTO 87 % (41-73); NRBC ABSOLUTE 0.04 K/mm3 (0.00-0.02); NRBC Auto 0.1 /100 WBC (0.0-0.2); Platelet Count 862 K/mm3 (150-400); RDW Coefficient Variation 16.7 % (11.7-14.2); RDW Standard Deviation 51.7 fL (35.1-46.3); Red Blood Cell Count 1.26 M/mm3 (4.30-5.90); White Blood Cell Count 31.38 K/mm3 (4.00-11.30)
[2019-12-08 06:45] LABS: Hematocrit 10.5 % (37.0-53.0); Hemoglobin 3.3 g/dL (13.5-17.5)
[2019-12-08 07:29] LABS: International Normalized Ratio 1.16; Prothrombin Time Results 12.3 Sec (9.7-11.5)
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
--- NOTE | 2019-12-08 12:00 | NUR ---
PATIENT RESTING QUIETLY IN ROOM. NO COMPLAINTS. TEMP OF 99.5 DEGREES FAHRENHEIT. PATIENT RECEIVING BLOOD PRODUCTS. PATIENT REMAINS SATTING 90% AND GREATER ON RA. PATIENT REMAINS IN ST, HR 120S. BP STABLE. NO OTHER ACUTE CHANGES TO NOTE ON AT THIS TIME. WILL CONTINUE TO MONITOR.
[2019-12-08 12:41] LABS: Source, Urine Clean Catch
[2019-12-08 12:58] LABS: Bilirubin, Urine Neg (Neg); Blood, Urine Neg (Neg); Glucose Qualitative, Urine Neg (Neg); Ketones, Urine Neg (Neg); Leukocyte Esterase, Urine Neg (Neg); Nitrite, Urine Neg (Neg); Protein, Urine Neg (Neg); Urobilinogen, Urine NORM (Normal)
[2019-12-08 13:00] LABS: Appearance, Urine Clear (Clear); Color, Urine Yellow (P-Yellow)
--- NOTE | 2019-12-08 15:42 | NUR ---
12/08/19 1542 JULIO BURGOS History, Chart, Medications and Allergies reviewed before start of procedure.3-LEAD EKG REVIEWED WITH PHYSICIAN PRIOR TO START OF PROCEDURE.O2 VIA N/C INTACT THROUGHOUT SEDATION/PROCEDURE. MONITOR INTACT WITH CONTINUOUS PULSE OXIMETRY AND INTERMITTENT BP.PATIENT DETERMINED TO BE ASA APPROPRIATE FOR PROPOFOL SEDATION PRIOR TO START OF PROCEDURE BY .
--- NOTE | 2019-12-08 16:30 | NUR ---
PATIENT AFEBRILE. PATIENT REMAINS SATTING 90% AND GREATER ON RA. PATIENT REMAINS IN ST, HR LOW 100S TO 120S. BP STABLE. NO ACUTE CHANGES.
--- NOTE | 2019-12-08 17:00 | NUR ---
SCOPE COMPLETE. PROTONIX DRIP DC'D. BID IV PROTONIX ORDERED. PATIENT ABLE TO TAKE CLEAR LIQUID AND ADVANCE TOLERATED. NS INFUSING AT 125 MLS/ HOUR.
--- NOTE | 2019-12-08 18:19 | NUR ---
SHIFT SUMMARY PATIENT REMAINED ALERT AND ORIENTED X 4. PATIENT HAD SLIGHT TEMP MOST OF THE DAY. PATIENT DENIES PAIN ALL SHIFT. PATIENT REMAINS SLIGHTLY WEAK BUT ABLE TO REPOSITION SELF IN BED. PATIENT REMAINS SATTING 90% AND GREATER ON RA. LUNGS REMAIN CLEAR. PATIENT REMAINED IN ST, HR LOW 100S TO 130S. BP STABLE. SCDS IN PLACE. NO N/V THIS SHIFT. PATIENT VOIDING DARK YELLOW URINE INTO URINAL. NS INFUSING AT 125 MLS/ HOUR. PATIENT ON 4TH UNIT OF PRBCS. PATIENT SCOPED TODAY; NO INTERVENTION PERFORMED. BIOPSIES TAKEN. PATIENT HAS HAD NO ACTIVE BLEEDING SINCE AROUND 0400 THIS AM. PATIENT ON CLEAR LIQUID DIET AND CAN BE ADVANCED TOLERATED. BED LOW, CALL LIGHT IN REACH. REPORT WILL BE GIVEN TO ONCOMING INDUSTRIAL HYGENIST NURSE SHORTLY.
[2019-12-08 21:12] LABS: Hematocrit 23.7 % (37.0-53.0)
--- NOTE | 2019-12-08 21:16 | NUR ---
ASSUMED CARE OF PT AT 1900, REPORT RECEIVED FROM PERCY MARTINEZ. PT SLEEPING. PT AWAKENED DURING ASSESSMENT, AND STATES HE IS QUITE COMFORTABLE, NO PAIN, AFEBRILE. ITRACE PERFORMED, BLOOD TRANSFUSION FINISHED SHORTLY AFTER. NO S/S OF TRANSFUSION REACTION.
[2019-12-09 04:00] LABS: BASOPHILS ABSOLUTE AUTO 0.03 K/mm3 (0.00-0.23); BASOPHILS PERCENT AUTO 0 % (0-2); EOSINOPHILS ABSOLUTE AUTO 0.03 K/mm3 (0.00-0.68); EOSINOPHILS PERCENT AUTO 0 % (0-6); Hematocrit 21.3 % (37.0-53.0); Hemoglobin 7.3 g/dL (13.5-17.5); IMMATURE GRAN ABSOLUTE AUTO 0.17 K/mm3 (0.00-0.10); IMMATURE GRAN PERCENT AUTO 1 % (0-1); LYMPHOCYTES ABSOLUTE AUTO 1.92 K/mm3 (0.84-5.20); LYMPHOCYTES PERCENT AUTO 10 % (21-46); MONOCYTES ABSOLUTE AUTO 0.97 K/mm3 (0.16-1.47); MONOCYTES PERCENT AUTO 5 % (4-13); Mean Corpuscular HGB 27.9 pg (26.0-34.0); Mean Corpuscular HGB Conc 34.3 g/dL (31.5-36.5); Mean Corpuscular Volume 81 fL (80-100); Mean Platelet Volume 8.5 fL (9.1-12.4); NEUTROPHILS ABSOLUTE AUTO 16.48 K/mm3 (1.96-9.15); NEUTROPHILS PERCENT AUTO 84 % (41-73); NRBC ABSOLUTE 0.02 K/mm3 (0.00-0.02); NRBC Auto 0.1 /100 WBC (0.0-0.2); Platelet Count 527 K/mm3 (150-400); RDW Coefficient Variation 15.1 % (11.7-14.2); RDW Standard Deviation 44.2 fL (35.1-46.3); Red Blood Cell Count 2.62 M/mm3 (4.30-5.90)
[2019-12-09 04:26] LABS: Alanine Aminotransfer (ALT/SGP 14 U/L (12-78); Albumin, Blood 1.3 g/dL (3.4-5.0); Albumin/Globulin Ratio 0.5 (0.8-1.8); Alk Phos 57 U/L (50-136); Anion Gap 6 mmol/L (6-16); Aspartate Aminotrans (AST/SGOT 5 U/L (12-37); Bilirubin, Total 0.8 mg/dL (0.1-1.0); Blood Urea Nitrogen 16 mg/dL (8-24); Bun/Creatinine Ratio 22.7 (12.0-20.0); CO2, Blood 22 mmol/L (21-32); Calcium, Blood 7.3 mg/dL (8.5-10.1); Chloride, Blood 108 mmol/L (98-108); Creatinine, Blood 0.71 mg/dL (0.60-1.20); Globulin, Blood 2.7 g/dL (2.2-4.0); Glomerular Filtration Rate >60 (60-); Glucose, Blood 95 mg/dL (70-99); Potassium, Blood 3.7 mmol/L (3.5-5.5); Sodium, Blood 136 mmol/L (136-145)
--- NOTE | 2019-12-09 05:43 | NUR ---
PT SLEPT MOST OF EVENING, WAKING AFTER MIDNIGHT TO WATCH TV. PT STATED WAS VERY COMFORTABLE, NO PAIN, NO NAUSEA, NO VOMITING, NO URGENCY TO MOVE BOWELS. PT WAS SOMEWHAT COLD, BUT GIVEN WARM BLANKETS AND STATED WAS COMFORTABLE. PT'S URINE BECAME [employer]IP[employer] DURING EVENING, NOW VERY PALE STRAW. VITAL SIGNS STABLE. PT DRANK SOME APPLEJUICE, AND TOLERATED WELL.
[2019-12-09 10:28] LABS: Hematocrit 24.1 % (37.0-53.0)
--- NOTE | 2019-12-09 10:44 | NUR ---
INITIAL ASSESSMENT PT RESTING QUIETLY IN BED UPON ENTERING IN ROOM. PT A & O X 4. PT AFEBRILE. PT DENIES PAIN OR DISCOMFORT. PT SAT 90% OR GREATER ON RA. LUNG SOUNDS CLEAR TO AUSCULTATION. PT IN SINUS RYTHM TO SINUS TACH, HEART RATE 90'S TO LOW 100'S, BP STABLE. PULSES STRONG, NO EDEMA NOTED. NO ACTIVE BLEEDING. PT DENIES NAUSEA. WITHIN NORMAL LIMITS. MIDLINE ABDOMINAL SCAR NOTED, OTHERWISE SKIN CLEAN, DRY, INTACT. PT ABLE REPOSITION SELF IN BED. NORMAL SALINE TKO. BED LOW, CALL LIGHT IN REACH. WILL CONTINUE TO MONITOR THE PATIENT THROUGHOUT SHIFT.
--- NOTE | 2019-12-09 12:00 | NUR ---
PATIENT RESTING IN BED, WATCHING TV. NO COMPLAINTS. AFEBRILE. VSS. PATIENT IN ST, HR IN THE 1-TEENS. BP STABLE. DENIES NAUSEA. NO BM SO FAR TODAY. PATIENT TOLERATING SOFT AND REGULAR DIET WELL. PATIENT REFUSED SHOWER THIS AM. NO ACUTE CHANGES TO NOTE ON AT THIS TIME. WILL CONTINUE TO MONITOR.
[2019-12-09 16:49] LABS: Hematocrit 22.4 % (37.0-53.0); Hemoglobin 7.6 g/dL (13.5-17.5)
--- NOTE | 2019-12-09 16:50 | NUR ---
PATIENT RESTING QUIETLY IN BED, WATCHING TV. NO COMPLAINTS OF PAIN OR DISCOMFORT. PATIENT REMAINS SATTING 90% AND GREATER ON RA. PATIENT IN ST, HR LOW 100S TO 1-TEENS. PATIENT DENIES NAUSEA. PATIENT HAS NO ACTIVE BLEEDING. NO ACUTE CHANGES TO NOTE ON. WILL CONTINUE TO MONITOR.
--- NOTE | 2019-12-09 19:01 | NUR ---
SHIFT SUMMARY PATIENT REMAINED ALERT AND ORIENTED X 4, AFEBRILE. PATIENT HAD NO COMPLAINTS OF PAIN THIS SHIFT. PATIENT SBA IN ROOM. PATIENT REMAINED SATTING 90% AND GREATER ON RA. LUNGS CLEAR. PATIENT REMAINED IN SR TO ST, HR 90S TO 1-TEENS. BP REMAINED STABLE. SCDS ON MOST OF THE SHIFT. PATIENT DENIED NAUSEA. PATIENT HAD ONE LARGE, BLACK, FORMED STOOL THIS SHIFT. PATIENT ADVANCE TO REGULAR DIET THROUGHOUT SHIFT AND REMAINED TOLERATING WELL. PATIENT HAD GOOD APPETITE. UO ADEQUATE; YELLOW IN COLOR. NO CHANGE TO SKIN. PATIENT REMAINED REPOSITIONING SELF IN BED. NS TKO WITH ZOSYN. H&H REMAINED STABLE THIS SHIFT. PATIENT CURRENTLY IN SHOWER; COFFEE WEIGHER ASSISTING. REPORT GIVEN TO ASSUMING BUILDING MAINTENANCE MECHANIC NURSE.
--- NOTE | 2019-12-09 20:34 | NUR ---
Assumed care at 1900, report received from offgoing Lissette MARTINEZ. Pt was in shower, by himself, and tolerating well. Pt strong in all limbs with good balance and gait. Pt has zero compaints of pain and states he is very comfortable. Call light placed close to hand, drink at bedside. Pt informed of transfer to medical floor, and is amenable. All IV fluids are off and unattached to patient.
--- NOTE | 2019-12-09 20:47 | NUR ---
TELEPHONE REPORT GIVEN TO ASSUMING RN. WILL ESCORT PATIENT TO MEDICAL FLOOR ROOM 316.
--- NOTE | 2019-12-10 04:38 | NUR ---
SHIFT SUMMARY ASSUMED CARE OF PT AT 1999. PT WAS TRANSFERED FROM ICU. PT A/O X3, DENIES N/T IN EXTREMITIES. HEART SOUNDS REGUOLAR, ON TELE SHOWING SINUS, DENIES CP. LUNG SOUNDS CLEAR, DENIES SOB. PT USES URINAL AT BEDSIDE, URINE CLEAR AND PALE YELLOW. PT IS VERY THIN, AFFECT IS FLAT, PT IS COOPERATIVE WITH CARE. DENIES N/V. CALL LIGHT IN REACH, BED IN LOWEST POSTION, WILL CONTINUE TO MONITOR UNTIL DAYSHIFT NURSE ARRIVES.
[2019-12-10 04:49] LABS: Hematocrit 21.6 % (37.0-53.0); Hemoglobin 7.2 g/dL (13.5-17.5); Mean Corpuscular HGB 27.5 pg (26.0-34.0); Mean Corpuscular HGB Conc 33.3 g/dL (31.5-36.5); Mean Corpuscular Volume 82 fL (80-100); Mean Platelet Volume 8.6 fL (9.1-12.4); Platelet Count 555 K/mm3 (150-400); RDW Coefficient Variation 15.3 % (11.7-14.2); RDW Standard Deviation 45.1 fL (35.1-46.3); Red Blood Cell Count 2.62 M/mm3 (4.30-5.90); White Blood Cell Count 12.27 K/mm3 (4.00-11.30)
[2019-12-10 05:11] LABS: Anion Gap 6 mmol/L (6-16); Blood Urea Nitrogen 12 mg/dL (8-24); Bun/Creatinine Ratio 17.6 (12.0-20.0); CO2, Blood 23 mmol/L (21-32); Calcium, Blood 7.9 mg/dL (8.5-10.1); Chloride, Blood 106 mmol/L (98-108); Creatinine, Blood 0.68 mg/dL (0.60-1.20); Glomerular Filtration Rate >60 (60-); Glucose, Blood 85 mg/dL (70-99); Potassium, Blood 3.8 mmol/L (3.5-5.5); Sodium, Blood 135 mmol/L (136-145)
--- NOTE | 2019-12-10 08:45 | NUR ---
PT PLEASANT TALKATIVE. A/O. DENIES PAIN TODAY. H/R REG, NO MURMER NOTED. PER TELE S/TACH AT 102. LUNGS CLEAR, RESP EASY, UNLABORED. ON R.A. BT X4 LAST BM THIS AM STATES WAS SOFT BUT FORMED. BROWN COLOR. VOIDS PER URINAL AND INDEPENDANT ON ROOM. BED IN LOW POSITION, CALL LITE IN REACH, CALLS APPROP
--- NOTE | 2019-12-10 19:09 | NUR ---
PT PLEASANT TODAY. HAS SEEN 3 FOOT/SURGICAL DRS TODAY. DRS STATES WILL BE DOING SURG FRIDAY TO REMOVE ALL HARDWARE. PT AWARE. AT BEDSIDE. NO OTHER CONCERNSAT THIS TIME. BED IN LOW POSITION, CALL [facility] IN [facility], CALLS APPROP
--- NOTE | 2019-12-10 19:32 | NUR ---
PT QUITE PLEASANT TODAY. RECEIVED ONE UNIT PRBC. MOM AND DAD IN ROOM TODAY. PT AMBULATING ABOUT HALLS TODAAY. STATES FEELING BETTER. NO OTHER CONCERNS AT THIS TIME. BED IN LOW POSITION, CALL LITE IN REACH, CALLS APPROP
--- NOTE | 2019-12-10 21:38 | NUR ---
BEGINNING SHIFT SUMMARY ASSUMED CARE OF PT AT 1900. PT IS A/O X4, DENIES N/T IN EXTREMITIES. HEART SOUNDS REGULAR, TELEMETRY MONITORING SHOWING SINUS @ 90, DENIES CP AT THIS TIME. LUNG SOUNDS CLEAR, DENIES SOB AT THIS TIME. FAMILY PRESENT IN ROOM, PT REQUESTED TO TAKE A SHOWER BECAUSE HE STATED THAT THE DOCTOR TOLD HIM HE COULD GO HOME TOMORROW AND HE WANTED TO BE CLEAN. PT USES URINAL AT NIGHT, WRING CLEAR AND PALE YELLOW. CALL LIGHT IN REACH, BED IN LOWEST POSTION, WILL CONTINUE TO MONITOR.
--- NOTE | 2019-12-11 04:37 | NUR ---
END SHIFT SUMMARY NO ACUTE CHANGES NOTED T/O THE NIGHT. PT SLEPT T/O THE NIGHT EXCEPT FOR WHEN LAB AOKE HIM FOR BLOOD SMAPLES. VITAL SIGNS STABLE. CALL LIGHT IN REACH, BED IN LOWEST POSTION, WILL CONTINUE TO MONITOR UNTIL DAYSHIFT NURSE ARRIVES.
[2019-12-11 05:00] LABS: Hematocrit 27.5 % (37.0-53.0); Mean Corpuscular HGB 27.5 pg (26.0-34.0); Mean Corpuscular HGB Conc 32.7 g/dL (31.5-36.5); Mean Corpuscular Volume 84 fL (80-100); Mean Platelet Volume 8.8 fL (9.1-12.4); NRBC ABSOLUTE 0.02 K/mm3 (0.00-0.02); NRBC Auto 0.2 /100 WBC (0.0-0.2); Platelet Count 588 K/mm3 (150-400); RDW Coefficient Variation 15.2 % (11.7-14.2); RDW Standard Deviation 46.4 fL (35.1-46.3); Red Blood Cell Count 3.27 M/mm3 (4.30-5.90); White Blood Cell Count 11.67 K/mm3 (4.00-11.30)
--- NOTE | 2019-12-11 07:59 | NUR ---
pt laying in bed awake a/ox3, pleasant and cooperative with care, follows commands well, denies any complaints of pain, states he feels good and is anticipating going home today, lungs are clear, hrr, tele in place running sr per monitor, see strip, no edema noted, ppp+2, cap refill <3sec, vs stable, afebrile, iv sites are clear and patent, however rfa one is leaking when flushed, will remove, btx4, abd flat soft nontender, voids clear kimmy urine via urinal, skin c/w/d, adri, bruno, call light in reach.
== END 2019-12-11 13:00 | disposition home or self-care (01) | DRG 380 ==
LOC: ER 05:23 → ICUW 08:55 → MEDS 12-09 21:01 → ENPENDDIS 12-11 10:00 → MEDS 12-11 13:00
PROVIDERS: Emergency Medicine; Internal Medicine; Internal Medicine Gastroenterology; Nurse Practitioner Acute Care; ADMIT Internal Medicine
PROC: 30233N1 Transfusion of Nonautologous Red Blood Cells into Peripheral Vein, Percutaneous Approach (ICD-10-PCS; 2019-12-08)
PROC: 0DD68ZX Extraction of Stomach, Via Natural or Artificial Opening Endoscopic, Diagnostic (ICD-10-PCS; principal; 2019-12-08 16:00)
DX: K22.11 Ulcer of esophagus with bleeding (principal); E43 Unspecified severe protein-calorie malnutrition; R65.10 Systemic inflammatory response syndrome (SIRS) of non-infectious origin without acute organ dysfunction; E87.1 Hypo-osmolality and hyponatremia; D62 Acute posthemorrhagic anemia; Z87.820 Personal history of traumatic brain injury; K21.9 Gastro-esophageal reflux disease without esophagitis; E87.8 Other disorders of electrolyte and fluid balance, not elsewhere classified; E86.0 Dehydration; K44.9 Diaphragmatic hernia without obstruction or gangrene; K57.10 Diverticulosis of small intestine without perforation or abscess without bleeding; F17.210 Nicotine dependence, cigarettes, uncomplicated
CPT/HCPCS: 36415; 36430; 74022; 74177; 80048; 80053; 81003; 82330; 83605; 83690; 85014; 85018; 85025; 85027; 85610; 85730; 86850; 86900; 86901; 86923; 87040; 88305; 88312; 88342; 93005; 93010; 96361; 96365; 96375; 99285-25; C9113; J0171; J1430; J2250; J2543; J2704; J7030; J7050; J7120; P9016; Q9967

== ENCOUNTER 2019-12-13 01:01 | Observation (INO) | payer OTHER ==
[~2019-12-13] VITALS: Ht 175.3 cm; Wt 53.1 kg
[2019-12-13 01:47] LABS: BASOPHILS ABSOLUTE AUTO 0.07 K/mm3 (0.00-0.23); BASOPHILS PERCENT AUTO 0 % (0-2); EOSINOPHILS ABSOLUTE AUTO 0.03 K/mm3 (0.00-0.68); EOSINOPHILS PERCENT AUTO 0 % (0-6); Hematocrit 33.7 % (37.0-53.0); Hemoglobin 10.8 g/dL (13.5-17.5); IMMATURE GRAN ABSOLUTE AUTO 0.18 K/mm3 (0.00-0.10); IMMATURE GRAN PERCENT AUTO 1 % (0-1); LYMPHOCYTES ABSOLUTE AUTO 2.27 K/mm3 (0.84-5.20); LYMPHOCYTES PERCENT AUTO 10 % (21-46); MONOCYTES ABSOLUTE AUTO 1.09 K/mm3 (0.16-1.47); MONOCYTES PERCENT AUTO 5 % (4-13); Mean Corpuscular HGB 27.6 pg (26.0-34.0); Mean Corpuscular Volume 86 fL (80-100); Mean Platelet Volume 8.5 fL (9.1-12.4); NEUTROPHILS PERCENT AUTO 85 % (41-73); Platelet Count 902 K/mm3 (150-400); RDW Coefficient Variation 16.3 % (11.7-14.2); RDW Standard Deviation 49.1 fL (35.1-46.3); Red Blood Cell Count 3.91 M/mm3 (4.30-5.90); White Blood Cell Count 23.74 K/mm3 (4.00-11.30)
[2019-12-13 02:02] LABS: International Normalized Ratio 0.97; Prothrombin Time Results 10.4 Sec (9.7-11.5)
[2019-12-13 02:04] LABS: Alanine Aminotransfer (ALT/SGP 20 U/L (12-78); Albumin, Blood 2.2 g/dL (3.4-5.0); Albumin/Globulin Ratio 0.5 (0.8-1.8); Alk Phos 87 U/L (50-136); Anion Gap 6 mmol/L (6-16); Aspartate Aminotrans (AST/SGOT 14 U/L (12-37); Bilirubin, Total 0.1 mg/dL (0.1-1.0); Blood Urea Nitrogen 16 mg/dL (8-24); Bun/Creatinine Ratio 26.4 (12.0-20.0); CO2, Blood 32 mmol/L (21-32); Calcium, Blood 8.7 mg/dL (8.5-10.1); Chloride, Blood 100 mmol/L (98-108); Creatinine, Blood 0.61 mg/dL (0.60-1.20); Globulin, Blood 4.4 g/dL (2.2-4.0); Glomerular Filtration Rate >60 (60-); Glucose, Blood 166 mg/dL (70-99); Potassium, Blood 3.3 mmol/L (3.5-5.5); Sodium, Blood 138 mmol/L (136-145); Total Protein, Blood 6.6 g/dL (6.4-8.2)
[2019-12-13] MEDS ORDERED: ONDA4 PO (04:26)
--- NOTE | 2019-12-13 05:43 | NUR ---
SHIFT SUMMARY NEW ADMIT TO FLOOR THIS AM AROUND 0420 FOR EMESIS W/BLOOD. NO EMESIS OR S/S OF BLEEDING SINCE I ASSUMED CARE. AOX4. VSS. TELE IN PLACE RUNNING ST HR 107. REPORTS MILD BURNING PAIN IN ESOPHAGUS FROM THROWING UP OTHERWISE DENIES ANY ABD TENDERNESS OR PAIN. STATES PASSING GAS OKAY, DENIES LOOSE BM, ABD IS MILD DISTENDED, DENIES ANY NAUSEA @THIS TIME, ACTIVE BT A4Q. CURRENTLY IS NPO PER ORDERS. CALL LIGHT IN REACH & I WCTM UNTIL DAY SHIFT RN ASSUMES CARE.
[2019-12-13 07:28] LABS: Hematocrit 28.9 % (37.0-53.0); Hemoglobin 9.1 g/dL (13.5-17.5); Mean Corpuscular HGB 27.8 pg (26.0-34.0); Mean Corpuscular HGB Conc 31.5 g/dL (31.5-36.5); Mean Corpuscular Volume 88 fL (80-100); Mean Platelet Volume 8.4 fL (9.1-12.4); Platelet Count 686 K/mm3 (150-400); RDW Coefficient Variation 16.3 % (11.7-14.2); RDW Standard Deviation 50.5 fL (35.1-46.3); Red Blood Cell Count 3.27 M/mm3 (4.30-5.90); White Blood Cell Count 19.24 K/mm3 (4.00-11.30)
[2019-12-13 07:49] LABS: Alanine Aminotransfer (ALT/SGP 15 U/L (12-78); Albumin, Blood 1.8 g/dL (3.4-5.0); Albumin/Globulin Ratio 0.5 (0.8-1.8); Alk Phos 71 U/L (50-136); Anion Gap 5 mmol/L (6-16); Aspartate Aminotrans (AST/SGOT 10 U/L (12-37); Bilirubin, Total 0.2 mg/dL (0.1-1.0); Blood Urea Nitrogen 14 mg/dL (8-24); Bun/Creatinine Ratio 26.5 (12.0-20.0); CO2, Blood 25 mmol/L (21-32); Chloride, Blood 108 mmol/L (98-108); Creatinine, Blood 0.53 mg/dL (0.60-1.20); Globulin, Blood 3.7 g/dL (2.2-4.0); Glomerular Filtration Rate >60 (60-); Glucose, Blood 80 mg/dL (70-99); Potassium, Blood 4.6 mmol/L (3.5-5.5); Sodium, Blood 138 mmol/L (136-145); Total Protein, Blood 5.5 g/dL (6.4-8.2)
[2019-12-13 14:30] LABS: Hematocrit 27.4 % (37.0-53.0); Hemoglobin 8.5 g/dL (13.5-17.5)
--- NOTE | 2019-12-13 17:51 | NUR ---
SHIFT SUMMARY PT IS A&O, NO REPORTS OF NAUSEA OR VOMITING TODAY. PT TOLERATED CLEAR LIQUID DIET. H/H HAS SLOWLY TRENDED DOWN. PROTONIX GTT STOPPED TODAY AND PT SWITCHED TO PO PROTONIX. PT HR HAS BEEN LOW 100'S TODAY, TELE D/C'D PER ORDER AND PT CHANGED TO MEDICAL STATUS. VITALS HAVE REMAINED STABLE. FAMILY AND PT UPDATED ON STATUS.
[2019-12-13 20:06] LABS: Hematocrit 28.1 % (37.0-53.0); Hemoglobin 8.8 g/dL (13.5-17.5)
[2019-12-14 01:40] LABS: BASOPHILS ABSOLUTE AUTO 0.05 K/mm3 (0.00-0.23); BASOPHILS PERCENT AUTO 0 % (0-2); EOSINOPHILS PERCENT AUTO 2 % (0-6); Hematocrit 28.8 % (37.0-53.0); Hemoglobin 8.9 g/dL (13.5-17.5); IMMATURE GRAN ABSOLUTE AUTO 0.05 K/mm3 (0.00-0.10); IMMATURE GRAN PERCENT AUTO 0 % (0-1); LYMPHOCYTES ABSOLUTE AUTO 2.75 K/mm3 (0.84-5.20); LYMPHOCYTES PERCENT AUTO 23 % (21-46); MONOCYTES ABSOLUTE AUTO 0.96 K/mm3 (0.16-1.47); MONOCYTES PERCENT AUTO 8 % (4-13); Mean Corpuscular HGB 27.1 pg (26.0-34.0); Mean Corpuscular HGB Conc 30.9 g/dL (31.5-36.5); Mean Corpuscular Volume 88 fL (80-100); Mean Platelet Volume 8.3 fL (9.1-12.4); NEUTROPHILS ABSOLUTE AUTO 8.05 K/mm3 (1.96-9.15); NEUTROPHILS PERCENT AUTO 67 % (41-73); Platelet Count 674 K/mm3 (150-400); RDW Coefficient Variation 15.9 % (11.7-14.2); RDW Standard Deviation 50.4 fL (35.1-46.3); Red Blood Cell Count 3.28 M/mm3 (4.30-5.90); White Blood Cell Count 12.06 K/mm3 (4.00-11.30)
[2019-12-14 01:55] LABS: Anion Gap 5 mmol/L (6-16); Blood Urea Nitrogen 9 mg/dL (8-24); Bun/Creatinine Ratio 15.6 (12.0-20.0); CO2, Blood 25 mmol/L (21-32); Calcium, Blood 8.2 mg/dL (8.5-10.1); Chloride, Blood 107 mmol/L (98-108); Creatinine, Blood 0.58 mg/dL (0.60-1.20); Glomerular Filtration Rate >60 (60-); Glucose, Blood 85 mg/dL (70-99); Potassium, Blood 4.3 mmol/L (3.5-5.5); Sodium, Blood 137 mmol/L (136-145)
--- NOTE | 2019-12-14 04:43 | NUR ---
44 year old Male just discharged Friday and readmitted with GI bleed has improving Q 6 hours H & H. He denies nausea or abd pain, Had 1 large soft brown stool last evening and he is tolerating clear liquids with no reds. Voids 480 ml clear yellow urine. Room air VSS. hoping to dc home soon. Ordered clear ensure apple with meals protein supplement. PT very thin catacetic appearing.
[2019-12-14] MEDS ORDERED: AMOCLA875 PO (09:30)
[2019-12-14] MEDS ORDERED: SUCR1 PO (09:30)
--- NOTE | 2019-12-14 11:04 | NUR ---
PCU DISCHARGE SUMMARY PATIENT LEFT UNIT VIA AMBULATION HOME WITH FATHER AND SISTER AT 1000. PATIENT IN NO ACUTE DISTRESS, ON ROOM AIR AND VSS. FAMILY AND PATIENT VERBALIZED DISCHARGE PLAN, MEDICATIONS AND FOLLOW UP INSTRUCTIONS. ALL BELONGS TAKEN HOME BY PATIENT IN ROOM.
== END 2019-12-14 10:00 | disposition home or self-care (01) ==
LOC: ER 01:01 → PCU 01:30
PROVIDERS: Emergency Medicine; Internal Medicine; ADMIT Internal Medicine
DX: K92.0 Hematemesis (principal); D64.9 Anemia, unspecified; D72.829 Elevated white blood cell count, unspecified; K21.9 Gastro-esophageal reflux disease without esophagitis; Z79.899 Other long term (current) drug therapy
CPT/HCPCS: 36415; 80048; 80053; 85014; 85018; 85025; 85027; 85610; 85730; 86850; 86900; 86901; 96361; 96374; 96375; 96376; 99284-25; A9270-GY; C9113; G0378; J0696; J2405; J3480; J7030

== ENCOUNTER 2019-12-28 08:31 | Inpatient (IN) | payer OTHER ==
[~2019-12-28] VITALS: Ht 175.3 cm; Wt 50.8 kg
[~2019-12-28 08:31] MED LIST changes: +ONDA4 PO; +SUCR1 PO
[2019-12-28] MEDS ORDERED: FAMO40 PO (09:43)
[2019-12-28 09:48] LABS: BASOPHILS ABSOLUTE AUTO 0.05 K/mm3 (0.00-0.23); BASOPHILS PERCENT AUTO 0 % (0-2); EOSINOPHILS ABSOLUTE AUTO 0.15 K/mm3 (0.00-0.68); EOSINOPHILS PERCENT AUTO 1 % (0-6); Hematocrit 36.2 % (37.0-53.0); Hemoglobin 10.9 g/dL (13.5-17.5); IMMATURE GRAN ABSOLUTE AUTO 0.05 K/mm3 (0.00-0.10); IMMATURE GRAN PERCENT AUTO 0 % (0-1); LYMPHOCYTES ABSOLUTE AUTO 2.01 K/mm3 (0.84-5.20); LYMPHOCYTES PERCENT AUTO 17 % (21-46); MONOCYTES ABSOLUTE AUTO 0.61 K/mm3 (0.16-1.47); MONOCYTES PERCENT AUTO 5 % (4-13); Mean Corpuscular HGB 25.6 pg (26.0-34.0); Mean Corpuscular HGB Conc 30.1 g/dL (31.5-36.5); Mean Corpuscular Volume 85 fL (80-100); Mean Platelet Volume 7.9 fL (9.1-12.4); NEUTROPHILS ABSOLUTE AUTO 8.87 K/mm3 (1.96-9.15); NEUTROPHILS PERCENT AUTO 76 % (41-73); Platelet Count 937 K/mm3 (150-400); RDW Coefficient Variation 17.1 % (11.7-14.2); RDW Standard Deviation 53.3 fL (35.1-46.3); Red Blood Cell Count 4.25 M/mm3 (4.30-5.90); White Blood Cell Count 11.74 K/mm3 (4.00-11.30)
[2019-12-28 10:07] LABS: Alanine Aminotransfer (ALT/SGP 19 U/L (12-78); Albumin, Blood 2.8 g/dL (3.4-5.0); Albumin/Globulin Ratio 0.6 (0.8-1.8); Alk Phos 110 U/L (50-136); Anion Gap 6 mmol/L (6-16); Aspartate Aminotrans (AST/SGOT 13 U/L (12-37); Bilirubin, Total 0.2 mg/dL (0.1-1.0); Blood Urea Nitrogen 17 mg/dL (8-24); Bun/Creatinine Ratio 24.6 (12.0-20.0); CO2, Blood 27 mmol/L (21-32); Calcium, Blood 8.9 mg/dL (8.5-10.1); Chloride, Blood 105 mmol/L (98-108); Creatinine, Blood 0.69 mg/dL (0.60-1.20); Globulin, Blood 4.5 g/dL (2.2-4.0); Glomerular Filtration Rate >60 (60-); Glucose, Blood 103 mg/dL (70-99); Potassium, Blood 4.1 mmol/L (3.5-5.5); Sodium, Blood 138 mmol/L (136-145); Total Protein, Blood 7.3 g/dL (6.4-8.2)
[2019-12-28 11:31] LABS: Prealbumin, Blood 28.3 mg/dL (20.0-40.0)
[2019-12-28] MEDS ORDERED: SUCRALFATE1 GM/10 M1 PO (11:44)
--- NOTE | 2019-12-28 17:43 | NUR ---
12/28/19 1743 Rachele Bagley History, Chart, Medications and Allergies reviewed before start of procedure.PATIENT DETERMINED TO BE ASA APPROPRIATE FOR PROPOFOL SEDATION PRIOR TO START OF PROCEDURE BY .MONITOR INTACT WITH CONTINUOUS PULSE OXIMETRY AND INTERMITTENT BP.3-LEAD EKG REVIEWED WITH PHYSICIAN PRIOR TO START OF PROCEDURE.O2 VIA N/C INTACT THROUGHOUT SEDATION/PROCEDURE.
--- NOTE | 2019-12-28 18:25 | NUR ---
SHIFT SUMMARY ED ADMIT THIS AFTERNOON. PATIENT DENIES PAIN AND SHORTNESS OF BREATH. PATIENT REPORTS NAUSEA WHEN ATTEMPTING TO EAT. PATIENT HAD ENDOSCOPY TODAY. ESOPHAGEAL TISSUE DILATED AND BIOPSY DONE. PATIENT ADVANCED TO CLEAR LIQUID DIET WHEN ALERT ENOUGH TO EAT. PATIENT SLEEPING AT THIS TIME. FAMILY AT BEDSIDE. CALL LIGHT IN REACH.
--- NOTE | 2019-12-28 19:38 | NUR ---
Pt currently on post procedure vitals - reported had EGD with balloon dilation of esophagus. Asymptomatic. VSS. Up to bathroom to change clothes. Alert and oriented x 4. Denied pain. Tolerated jello well. IVF of LR continues at 100 ml/hr. Call light in reach.
[2019-12-29 05:06] LABS: Hematocrit 27.9 % (37.0-53.0); Hemoglobin 8.5 g/dL (13.5-17.5); Mean Corpuscular HGB 25.7 pg (26.0-34.0); Mean Corpuscular HGB Conc 30.5 g/dL (31.5-36.5); Mean Corpuscular Volume 84 fL (80-100); Mean Platelet Volume 8.3 fL (9.1-12.4); Platelet Count 656 K/mm3 (150-400); RDW Coefficient Variation 16.7 % (11.7-14.2); RDW Standard Deviation 52.2 fL (35.1-46.3); Red Blood Cell Count 3.31 M/mm3 (4.30-5.90); White Blood Cell Count 7.68 K/mm3 (4.00-11.30)
[2019-12-29 05:46] LABS: Alanine Aminotransfer (ALT/SGP 12 U/L (12-78); Albumin/Globulin Ratio 0.6 (0.8-1.8); Alk Phos 83 U/L (50-136); Anion Gap 6 mmol/L (6-16); Aspartate Aminotrans (AST/SGOT 7 U/L (12-37); Bilirubin, Total 0.3 mg/dL (0.1-1.0); Blood Urea Nitrogen 12 mg/dL (8-24); Bun/Creatinine Ratio 16.5 (12.0-20.0); CO2, Blood 23 mmol/L (21-32); Chloride, Blood 108 mmol/L (98-108); Creatinine, Blood 0.73 mg/dL (0.60-1.20); Globulin, Blood 3.3 g/dL (2.2-4.0); Glomerular Filtration Rate >60 (60-); Glucose, Blood 90 mg/dL (70-99); Potassium, Blood 4.2 mmol/L (3.5-5.5); Sodium, Blood 137 mmol/L (136-145)
[2019-12-29 05:47] LABS: Total Protein, Blood 5.3 g/dL (6.4-8.2)
--- NOTE | 2019-12-29 06:09 | NUR ---
NOTE HGB 8.5 THIS AM, WAS OVER 10 YESTERDAY. ASYMPTOMATIC, BP 123/78, HR 99. NO COMPLAINTS OF HEMATOEMESIS OR DARK TARRY STOOLS. NOTIFIED. INSTRUCTED TO WATCH PT, NO NEW ORDERS AT THIS TIME. CALL LIGHT IN REACH.
[2019-12-29] MEDS ORDERED: PANT40 PO (19:16)
== END 2019-12-29 19:49 | disposition home or self-care (01) | DRG 391 ==
LOC: ER 08:31 → MEDS 08:32
PROVIDERS: Nurse Practitioner Acute Care; Physician Assistant; Student in an Organized Health Care Education/Training Program; ADMIT Hospitalist
PROC: 0D748ZZ Dilation of Esophagogastric Junction, Via Natural or Artificial Opening Endoscopic (ICD-10-PCS; principal; 2019-12-28 16:00)
DX: K22.2 Esophageal obstruction (principal); E43 Unspecified severe protein-calorie malnutrition; R65.10 Systemic inflammatory response syndrome (SIRS) of non-infectious origin without acute organ dysfunction; Z68.1 Body mass index [BMI] 19.9 or less, adult; K21.0 Gastro-esophageal reflux disease with esophagitis; F12.129 Cannabis abuse with intoxication, unspecified; F17.210 Nicotine dependence, cigarettes, uncomplicated; E86.0 Dehydration; D50.9 Iron deficiency anemia, unspecified; Z87.820 Personal history of traumatic brain injury
CPT/HCPCS: 36415; 71046; 80053; 83735; 84100; 84134; 84443; 85025; 85027; 93005; 93010; 96361; 96374; 99285-25; C1726; C9113; J2405; J2704; J2765; J7030; J7120

== ENCOUNTER 2020-01-10 22:15 | Inpatient (IN) | payer OTHER ==
[~2020-01-10] VITALS: Ht 175.3 cm; Wt 49.9 kg
[~2020-01-10 22:15] MED LIST changes: +FAMO40 PO; +PANT40 PO; +SUCRALFATE1 GM/10 M1 PO
[2020-01-11 03:37] LABS: Acetaminophen, Random <2.0 ug/mL (10.0-30.0); Alanine Aminotransfer (ALT/SGP 15 U/L (12-78); Albumin, Blood 2.4 g/dL (3.4-5.0); Albumin/Globulin Ratio 0.6 (0.8-1.8); Alk Phos 91 U/L (50-136); Anion Gap 14 mmol/L (6-16); Aspartate Aminotrans (AST/SGOT 9 U/L (12-37); Bilirubin, Total 0.2 mg/dL (0.1-1.0); Blood Urea Nitrogen 25 mg/dL (8-24); Bun/Creatinine Ratio 34.4 (12.0-20.0); CO2, Blood 26 mmol/L (21-32); Calcium, Blood 8.5 mg/dL (8.5-10.1); Chloride, Blood 102 mmol/L (98-108); Creatinine, Blood 0.73 mg/dL (0.60-1.20); Ethanol (Alcohol), Blood, Med <3 mg/dL; Globulin, Blood 3.8 g/dL (2.2-4.0); Glomerular Filtration Rate >60 (60-); Glucose, Blood 236 mg/dL (70-99); Potassium, Blood 3.4 mmol/L (3.5-5.5); Sodium, Blood 142 mmol/L (136-145); Total Protein, Blood 6.2 g/dL (6.4-8.2); Troponin I <0.015 ng/mL (0.000-0.040)
[2020-01-11 03:38] LABS: International Normalized Ratio 1.07; Prothrombin Time Results 11.4 Sec (9.7-11.5)
[2020-01-11 03:49] LABS: BASOPHILS ABSOLUTE AUTO 0.08 K/mm3 (0.00-0.23); BASOPHILS PERCENT AUTO 0 % (0-2); EOSINOPHILS PERCENT AUTO 0 % (0-6); Hematocrit 36.6 % (37.0-53.0); Hemoglobin 11.2 g/dL (13.5-17.5); IMMATURE GRAN ABSOLUTE AUTO 0.18 K/mm3 (0.00-0.10); IMMATURE GRAN PERCENT AUTO 1 % (0-1); LYMPHOCYTES ABSOLUTE AUTO 1.76 K/mm3 (0.84-5.20); LYMPHOCYTES PERCENT AUTO 5 % (21-46); MONOCYTES ABSOLUTE AUTO 1.68 K/mm3 (0.16-1.47); MONOCYTES PERCENT AUTO 5 % (4-13); Mean Corpuscular HGB 26.2 pg (26.0-34.0); Mean Corpuscular HGB Conc 30.6 g/dL (31.5-36.5); Mean Corpuscular Volume 86 fL (80-100); Mean Platelet Volume 8.7 fL (9.1-12.4); NEUTROPHILS ABSOLUTE AUTO 30.12 K/mm3 (1.96-9.15); NEUTROPHILS PERCENT AUTO 89 % (41-73); Platelet Count 803 K/mm3 (150-400); RDW Coefficient Variation 16.2 % (11.7-14.2); RDW Standard Deviation 51.2 fL (35.1-46.3); Red Blood Cell Count 4.27 M/mm3 (4.30-5.90); White Blood Cell Count 33.82 K/mm3 (4.00-11.30)
--- NOTE | 2020-01-11 07:10 | NUR ---
01/11/20 0710 Murali Feldman CREW CHANGE, COUNTS
[2020-01-11 08:19] LABS: Hematocrit 39.6 % (37.0-53.0); Hemoglobin 12.3 g/dL (13.5-17.5)
[2020-01-11 09:23] LABS: Hematocrit 46.1 % (37.0-53.0); Hemoglobin 14.5 g/dL (13.5-17.5)
[2020-01-11 10:15] LABS: Base Excess Venous -6.6 mmol/L; Bicarbonate Venous 18.7 mmol/L (24.0-30.0); PCO2 Venous 45 mmHg (38-42); PO2 Venous 44 mmHg (38-42); pH Blood Venous 7.27 (7.34-7.37)
--- NOTE | 2020-01-11 12:14 | NUR ---
PT ADMITTED TO ICU 5 AT 0815 FROM OR S/P EMERGENCY EXP LAP FOR PERITONITIS/PNEUMOPERITONEUM/SEPTIC SHOCK. PT ARRIVED W ANESTHESIOLOGIST WHOM WAS BAGGING PT AND 2 OPHTHALMOLOGIST RETINA SPECIALIST'S. PT ARRIVED ON ICU BED AND WITH ICU TRAM MONITOR IN PLACE. RT AT BEDSIDE AND PLACED PT ON VENT. DR AMIN HAD BEEN CALLED FOR CONSULT AND GIVEN UPDATE PRIOR TO PT ARRIVAL. DR GIL HAD PHENLEHRINE GTT TO GRAVITY INFUSING ALONG W NS. PT SWITCHED FROM PHENYEPHRINE GTT TO LEVOPHED GTT. PT INITIALLY BECAME HTN W SVT RATE 150'S, PT HAD PARALYTIC PER ANESTHEIOLOGIST; PROPOFOL STARTED FOLLOWED BY FENT 50MCG PUSH PER DR AMIN. DR ROMO AT BEDSIDE AT 0820 TO GIVE REPORT WELL. NG TO STOMACH PLACED AT LIS PER DR ROMO. OG TUBE TO DISTAL ESOPHAGUS ABOVE PERFORATION PER DR ROMO AND ALSO PLACED TO LIS PER DR ROMO. BILE OUTPUT FROM NGT, CLEAR FROM OGT. LARGE 22CM OPEN ABD (MIDLINE) INCISION TO WOUND VAC. SS FLUID OUTPUT. STACI TO RLQ WITH SANG OUTPUT. ABSENT BT'S. LEVOPHED STARTED AT 5MCG TO PERIPHERAL IV INITIALLY. PICC PLACED W/O DIFFICULTY TO TOBY AT 0945. LEVOPHED THEN PLACED TO PICC LINE AND TITRATED UP TO 18MCG FOR HYPOTENSION. PROPOFOL TITRATED UP TO 40MCG ONCE BP STABLE PT GRIMACING AND OPENING EYES. DOES NOT FOLLOW DIRECTIONS. FENT GTT IS INFUSING AT 50MCG/HR; THIS APPEARED TO HELP HEART RATE; WHICH IS NOW 120'S. PER HX PT TYPICALLY HAS A HEART RATE IN THE 120'S. VASOPRESSIN GTT WAS ADDED WELL FOR HYPOTENSION AT 0.04UNITS/MIN. PT IS TO BE TRANSFERED TO [facility] THIS AFTERNOON. PT'S MOTHER CALLED AND WAS GIVEN UPDATE. PT'S VS ARE STABLE AT THIS TIME WITH VASOPRESSIN AND LEVOPHED AT 17MCG.
--- NOTE | 2020-01-11 13:31 | NUR ---
FULL REPORT GIVEN TO MANSOOR MARTINEZ AT [facility] TRAUMA ICU. LEVOPHED AT 16MCG, PROPOFOL GTT AT 40MCG, VASOPRESSIN AT 0.04UNITS/MIN. PT AWAKENS TO VOICE AND WILL FOLLOW SIMPLE COMMANDS. FENT GTT AT 50MCG/HR AND WILL BE DC'D PRIOR TO TRANSPORT. TRANSPORT TEAM MAY GIVE FENT 50MCG Q HR PRN PER DR AMIN. TEMP HAS INCREASED TO 100.2 PER CONTINUOUS RECTAL PROBE TEMP. PT'S MOTHER CALLED FOR CONSENT TO TRANSFER AND TO GIVE FULL UPDATE. NO OTHER CHANGES.
--- NOTE | 2020-01-11 14:10 | NUR ---
REACH AT BEDSIDE PREPARING PT FOR TRANSFER
--- NOTE | 2020-01-11 14:33 | NUR ---
PT WOKE UP DURING TRANSFERING PROCESS, GRIMACING. ABLE TO FOLLOW COMMANDS. NODS HEAD YES TO PAIN. FENT 50MCG IVP GIVEN FOR PAIN. FENT GTT DC'D AND WASTED W MARIPOSA MELLO RN. LEVOPHED,PROPOFOL,VASOPRESSIN, AND LR SENT W PT. PT DC'D FROM ICU AT 1435. WILL NOTIFY PARENTS AND [facility].
== END 2020-01-11 14:40 | disposition short-term general hospital (02) | DRG 853 ==
LOC: ER 22:15 → ICUE 01-11 02:00 → ICUW 01-11 02:00 → ICUE 01-11 04:50
PROVIDERS: Anesthesiology; Emergency Medicine; Internal Medicine Critical Care Medicine; Surgery; ADMIT Internal Medicine
PROC: 30233N1 Transfusion of Nonautologous Red Blood Cells into Peripheral Vein, Percutaneous Approach (ICD-10-PCS; 2020-01-11)
PROC: 02HV33Z Insertion of Infusion Device into Superior Vena Cava, Percutaneous Approach (ICD-10-PCS; 2020-01-11)
PROC: 3E033XZ Introduction of Vasopressor into Peripheral Vein, Percutaneous Approach (ICD-10-PCS; 2020-01-11)
PROC: 0W9G0ZZ Drainage of Peritoneal Cavity, Open Approach (ICD-10-PCS; principal; 2020-01-11 04:15)
DX: A41.9 Sepsis, unspecified organism (principal); R65.21 Severe sepsis with septic shock; K22.3 Perforation of esophagus; K65.9 Peritonitis, unspecified; K65.1 Peritoneal abscess; K21.9 Gastro-esophageal reflux disease without esophagitis; F17.210 Nicotine dependence, cigarettes, uncomplicated; Z86.19 Personal history of other infectious and parasitic diseases; Z79.899 Other long term (current) drug therapy; Z87.820 Personal history of traumatic brain injury
CPT/HCPCS: 31720; 36415; 36430; 71045; 71046; 74176; 80053; 82803; 83690; 84484; 85014; 85018; 85025; 85610; 85730; 86850; 86900; 86901; 86923; 93005; 93010; 94002; 96365; 96366; 96368; 96375; 96376; 99285-25; C9113; G0480; J0330; J1100; J2370; J2405; J2543; J2704; J3010; J3480; J7030; J7060; J7120; P9016

== ENCOUNTER → 2020-02-09 | Outpatient (CLI) | payer OTHER ==
[2020-02-09 17:44] LABS: Alanine Aminotransfer (ALT/SGP 12 U/L (12-78); Albumin, Blood 2.2 g/dL (3.4-5.0); Albumin/Globulin Ratio 0.4 (0.8-1.8); Alk Phos 115 U/L (50-136); Anion Gap 4 mmol/L (6-16); Aspartate Aminotrans (AST/SGOT 17 U/L (12-37); Bilirubin, Total 0.4 mg/dL (0.1-1.0); Blood Urea Nitrogen 18 mg/dL (8-24); Bun/Creatinine Ratio 31.8 (12.0-20.0); CO2, Blood 28 mmol/L (21-32); Calcium, Blood 9.1 mg/dL (8.5-10.1); Chloride, Blood 98 mmol/L (98-108); Creatinine, Blood 0.57 mg/dL (0.60-1.20); Globulin, Blood 5.3 g/dL (2.2-4.0); Glomerular Filtration Rate >60 (60-); Glucose, Blood 113 mg/dL (70-99); Potassium, Blood 4.6 mmol/L (3.5-5.5); Sodium, Blood 130 mmol/L (136-145); Total Protein, Blood 7.5 g/dL (6.4-8.2)
== END | disposition home or self-care (01) ==
LOC: LAB HH 15:39
PROVIDERS: Surgery
DX: Z43.1 Encounter for attention to gastrostomy (principal); K22.3 Perforation of esophagus; E44.0 Moderate protein-calorie malnutrition; E46 Unspecified protein-calorie malnutrition; K91.2 Postsurgical malabsorption, not elsewhere classified; E86.0 Dehydration
CPT/HCPCS: 80053

== ENCOUNTER → 2020-03-08 | Outpatient (CLI) | payer OTHER ==
[2020-03-08 17:38] LABS: Alanine Aminotransfer (ALT/SGP 19 U/L (12-78); Albumin, Blood 2.9 g/dL (3.4-5.0); Albumin/Globulin Ratio 0.5 (0.8-1.8); Alk Phos 119 U/L (50-136); Anion Gap 4 mmol/L (6-16); Aspartate Aminotrans (AST/SGOT 13 U/L (12-37); Bilirubin, Total 0.2 mg/dL (0.1-1.0); Blood Urea Nitrogen 14 mg/dL (8-24); Bun/Creatinine Ratio 29.2 (12.0-20.0); CO2, Blood 33 mmol/L (21-32); Calcium, Blood 9.6 mg/dL (8.5-10.1); Chloride, Blood 94 mmol/L (98-108); Creatinine, Blood 0.48 mg/dL (0.60-1.20); Globulin, Blood 5.6 g/dL (2.2-4.0); Glomerular Filtration Rate >60 (60-); Glucose, Blood 97 mg/dL (70-99); Potassium, Blood 3.6 mmol/L (3.5-5.5); Prealbumin, Blood 18.3 mg/dL (20.0-40.0); Sodium, Blood 131 mmol/L (136-145); Total Protein, Blood 8.5 g/dL (6.4-8.2)
== END | disposition home or self-care (01) ==
LOC: LAB HH 15:17
PROVIDERS: Nurse Practitioner Adult Health
DX: K22.3 Perforation of esophagus (principal); E46 Unspecified protein-calorie malnutrition; E86.0 Dehydration
CPT/HCPCS: 80053; 84134; 86140

== ENCOUNTER 2020-06-13 00:10 | Day surgery (SDC) | payer OTHER ==
[2020-06-12 12:14] LABS: BASOPHILS ABSOLUTE AUTO 0.03 K/mm3 (0.00-0.23); BASOPHILS PERCENT AUTO 0 % (0-2); EOSINOPHILS ABSOLUTE AUTO 0.04 K/mm3 (0.00-0.68); EOSINOPHILS PERCENT AUTO 0 % (0-6); Hematocrit 22.8 % (37.0-53.0); Hemoglobin 6.1 g/dL (13.5-17.5); IMMATURE GRAN ABSOLUTE AUTO 0.11 K/mm3 (0.00-0.10); IMMATURE GRAN PERCENT AUTO 1 % (0-1); LYMPHOCYTES ABSOLUTE AUTO 2.02 K/mm3 (0.84-5.20); LYMPHOCYTES PERCENT AUTO 14 % (21-46); MONOCYTES ABSOLUTE AUTO 1.02 K/mm3 (0.16-1.47); MONOCYTES PERCENT AUTO 7 % (4-13); Mean Corpuscular HGB 19.2 pg (26.0-34.0); Mean Corpuscular HGB Conc 26.8 g/dL (31.5-36.5); Mean Corpuscular Volume 72 fL (80-100); Mean Platelet Volume 9.1 fL (9.1-12.4); NEUTROPHILS ABSOLUTE AUTO 11.71 K/mm3 (1.96-9.15); NEUTROPHILS PERCENT AUTO 79 % (41-73); NRBC ABSOLUTE 0.06 K/mm3 (0.00-0.02); NRBC Auto 0.4 /100 WBC (0.0-0.2); RDW Coefficient Variation 20.9 % (11.7-14.2); RDW Standard Deviation 51.8 fL (35.1-46.3); Red Blood Cell Count 3.17 M/mm3 (4.30-5.90); White Blood Cell Count 14.93 K/mm3 (4.00-11.30)
[2020-06-12 12:33] LABS: C-REACTIVE PROTEIN, EXT RANGE 12.5 mg/dL (0.000-0.300)
[2020-06-12 12:40] LABS: Prealbumin, Blood 9.1 mg/dL (20.0-40.0)
[2020-06-12 12:46] LABS: Platelet Count 1031 K/mm3 (150-400)
== END 2020-06-13 17:46 | disposition home or self-care (01) ==
LOC: ATC 00:10
PROVIDERS: Physician Assistant
DX: D50.9 Iron deficiency anemia, unspecified (principal); D37.9 Neoplasm of uncertain behavior of digestive organ, unspecified; R00.0 Tachycardia, unspecified; Z93.1 Gastrostomy status
CPT/HCPCS: 36415; 36430; 82040; 84134; 85025; 86140; 86850; 86900; 86901; 86923; J7050; P9016

== ENCOUNTER 2020-10-19 17:00 | Emergency (ER) | payer OTHER ==
[~2020-10-19] VITALS: Ht 175.3 cm; Wt 52.2 kg
[~2020-10-19 17:00] MED LIST changes: +AMOCLA250S PO; +FAMO20 PO; +MULTI VITAMIN1 EACH PT; +OMEP20ER PT; +ONCOVITE PT; +SENOKOT8.6 MG PT
== END 2020-10-19 20:57 | disposition home or self-care (01) ==
LOC: ER 17:00
DX: K94.23 Gastrostomy malfunction (principal); K21.9 Gastro-esophageal reflux disease without esophagitis; F17.200 Nicotine dependence, unspecified, uncomplicated; Z79.899 Other long term (current) drug therapy
CPT/HCPCS: 43762; 99282-25

== ENCOUNTER 2021-02-16 09:04 | Emergency (ER) | payer OTHER ==
[~2021-02-16] VITALS: Ht 162.6 cm; Wt 54.4 kg
== END 2021-02-16 13:22 | disposition home or self-care (01) ==
LOC: ER 09:04
DX: Z43.1 Encounter for attention to gastrostomy (principal); K21.9 Gastro-esophageal reflux disease without esophagitis; F17.200 Nicotine dependence, unspecified, uncomplicated; Z79.899 Other long term (current) drug therapy
CPT/HCPCS: 43762; 74018; 99282-25

== ENCOUNTER 2021-05-09 04:05 | Inpatient (IN) | payer OTHER ==
[~2021-05-09] VITALS: Ht 175.3 cm; Wt 59.5 kg
[2021-05-09 04:44] LABS: BASOPHILS ABSOLUTE AUTO 0.04 K/mm3 (0.00-0.23); BASOPHILS PERCENT AUTO 0 % (0-2); EOSINOPHILS PERCENT AUTO 0 % (0-6); Hemoglobin 7.5 g/dL (13.5-17.5); IMMATURE GRAN ABSOLUTE AUTO 0.35 K/mm3 (0.00-0.10); IMMATURE GRAN PERCENT AUTO 2 % (0-1); LYMPHOCYTES ABSOLUTE AUTO 2.04 K/mm3 (0.84-5.20); LYMPHOCYTES PERCENT AUTO 10 % (21-46); MONOCYTES ABSOLUTE AUTO 1.17 K/mm3 (0.16-1.47); MONOCYTES PERCENT AUTO 6 % (4-13); Mean Corpuscular HGB 31.5 pg (26.0-34.0); Mean Corpuscular Volume 105 fL (80-100); Mean Platelet Volume 9.7 fL (9.1-12.4); NEUTROPHILS ABSOLUTE AUTO 16.83 K/mm3 (1.96-9.15); NEUTROPHILS PERCENT AUTO 82 % (41-73); NRBC ABSOLUTE 0.92 K/mm3 (0.00-0.02); NRBC Auto 4.5 /100 WBC (0.0-0.2); Platelet Count 784 K/mm3 (150-400); RDW Coefficient Variation 17.2 % (11.7-14.2); RDW Standard Deviation 59.4 fL (35.1-46.3); Red Blood Cell Count 2.38 M/mm3 (4.30-5.90); White Blood Cell Count 20.43 K/mm3 (4.00-11.30)
[2021-05-09 05:07] LABS: Anion Gap 10 mmol/L (6-16); Blood Urea Nitrogen 38 mg/dL (8-24); Bun/Creatinine Ratio 39.8 (12.0-20.0); CO2, Blood 28 mmol/L (21-32); Calcium, Blood 8.4 mg/dL (8.5-10.1); Chloride, Blood 94 mmol/L (98-108); Creatinine, Blood 0.96 mg/dL (0.60-1.20); Glomerular Filtration Rate >60 (60-); Glucose, Blood 119 mg/dL (70-99); Magnesium, Blood 2.6 mg/dL (1.6-2.4); Potassium, Blood 3.7 mmol/L (3.5-5.5); Sodium, Blood 132 mmol/L (136-145); Troponin I <0.015 ng/mL (0.000-0.040)
[2021-05-09 09:05] LABS: Hematocrit 21.9 % (37.0-53.0); Hemoglobin 6.6 g/dL (13.5-17.5)
[2021-05-09 09:39] LABS: CPK Creatine Kinase 35 U/L (39-308); Troponin I <0.015 ng/mL (0.000-0.040)
--- NOTE | 2021-05-09 13:00 | NUR ---
Echocardiogram performed. Stat overread requested of Dr. Cano.
[2021-05-09 13:44] LABS: Hematocrit 23.6 % (37.0-53.0); Hemoglobin 7.2 g/dL (13.5-17.5)
[2021-05-09] MEDS ORDERED: ASPI81CH PO (16:18)
[2021-05-09] MEDS ORDERED: OMEP20ER PT (16:18)
[2021-05-09] MEDS ORDERED: ONDA4 PT (16:19)
[2021-05-09] MEDS ORDERED: 1/2 NS 250ml250 ML (16:20)
[2021-05-09 17:06] LABS: Albumin, Body Fluid 1.7 g/dL; Glucose, Body Fluid 37 mg/dL; Protein, Body Fluid 6.5 g/dL; Triglycerides, Body Fluid 104 mg/dL
[2021-05-09 17:18] LABS: pH, Body Fluid 7.9
[2021-05-09 17:20] LABS: Lactate Dehydrogenase, Body Fl 1496 U/L
[2021-05-09 17:32] LABS: Automated BF WBC Count 2.017 K/mm3 (0-999); Body Fluid WBC Count 2017 /mm3 (0-999); RBC Count, Body Fluid 3150000 /mm3 (0-0)
--- NOTE | 2021-05-09 17:34 | NUR ---
Assumed care of pt on arrival to unit at 1547 from [facility] and previously emergency department. Pt arrived s/p pericardiocentesis with three-way stopcock terminating drain. Placed to sterile Safety-Vac vacuum bottle per orders from Dr Cano and clave placed to exposed-side port on stopcock, after cleaning. to maintain sterility. Instantly had 75-100 mL of dark red drainage into vacuum bottle. Pt has drain to LUQ with clear, yellow-green, drainage. Drain was not dressed. Site cleaned with sterile saline and tegaderm CHG placed. There is a suture on the drain tubing that is not secured to patient, it appears that it has been cut. Unsure if site is supposed to have securement device or dressing, pt provides conflicting information. Discussed with Dr Davies at [facility]. Plan to obtain records from [facility] and obtain ABD xray to verify placement. Pt has a PEG tube in place. He routinely feeds from 7 pm to 7 am and receives 5 cartons of TwoCal HN. Nutrition consult placed. Family and pt aware that pt may not receive feed until tomorrow. Pt also intakes 3 oz of liquid per hour while awake to exercise swallow muscles. Notified family that this will have to be discussed with doctor before enacted due to potential that PNA is from aspiration. Discussed with Dr Davies, who stated pt is to remain strict NPO, stating "His case is very complex. He should stay NPO". Family also stated that pt cannot safely lay flat "ever". HOB maintained at 30 degrees with lockout to prevent accidental lowering. Pt arrived wearing 7 LPM oxymizer; this was able to safely be titrated down to 5 LPM oxymizer. SpO2 90% or greater. Lungs have coarse bibasilar crackles. Pt voids into urinal without difficulty. PIV x 2 for access. Bed in lowest position. Call light in reach. Pt denies need at this time.
[2021-05-09 17:48] LABS: CPK Creatine Kinase 32 U/L (39-308); Hematocrit 30.7 % (37.0-53.0); Hemoglobin 9.6 g/dL (13.5-17.5); Troponin I <0.015 ng/mL (0.000-0.040)
--- NOTE | 2021-05-09 18:30 | NUR ---
Patient hypotensive. Call placed to Dr Cano to notify. Orders given for NS bolus. Provider at bedside shortly afterwards, performed POC ultrasound. States effusion is small and not the cause for hypotension. Plan to give 2 L bolus total and reassess with Dr Cano.
[2021-05-09 18:59] LABS: Appearance, Body Fluid Bloody (Clear); Color, Body Fluid Red (None-Yellow); Total Cell Count, Body Fluid 100
--- NOTE | 2021-05-09 19:35 | NUR ---
CARE ASSUMPTION PT A&O X4. BP LOW. NS BOLUS INFUSING. MONITOR SHOWS ST, HR 120's. PT DENIES PAIN/DISCOMFORT, LIGHTHEADEDNESS OR NAUSEA. PERICARDIAL DRAIN W/ APPROX 75 MLS DARK RED OUTPUT IN VACUUM CHAMBER. L ABD WALL DRAIN W/ SMALL AMOUNT OF CLEAR YELLOW/GREEN OUTPUT. PEG TUBE TO LLQ CLAMPED. WILL CONTINUE TO MONITOR.
--- NOTE | 2021-05-09 21:15 | NUR ---
FOLLOWUP CALL TO MD ARANGO TO FOLLOWUP POST NS BOLUS PER REPORTED MD REQUEST. PT SYS BP STILL 90's-105 AFTER 2L BOLUS. MD ARANGO W/ INSTRUCTION TO DEFER MATTER TO THE HOSPITALIST. MD REES NOTIFIED W/ NEW ORDER TO INFUSE 1L NS OVER 3 HRS.
[2021-05-10 00:29] LABS: Hematocrit 27.4 % (37.0-53.0); Hemoglobin 8.7 g/dL (13.5-17.5)
[2021-05-10 06:18] LABS: BASOPHILS ABSOLUTE AUTO 0.05 K/mm3 (0.00-0.23); BASOPHILS PERCENT AUTO 0 % (0-2); EOSINOPHILS ABSOLUTE AUTO 0.01 K/mm3 (0.00-0.68); EOSINOPHILS PERCENT AUTO 0 % (0-6); Hematocrit 28.3 % (37.0-53.0); Hemoglobin 8.8 g/dL (13.5-17.5); IMMATURE GRAN ABSOLUTE AUTO 0.14 K/mm3 (0.00-0.10); IMMATURE GRAN PERCENT AUTO 1 % (0-1); LYMPHOCYTES ABSOLUTE AUTO 0.97 K/mm3 (0.84-5.20); LYMPHOCYTES PERCENT AUTO 7 % (21-46); MONOCYTES ABSOLUTE AUTO 0.84 K/mm3 (0.16-1.47); MONOCYTES PERCENT AUTO 6 % (4-13); Mean Corpuscular HGB 31.3 pg (26.0-34.0); Mean Corpuscular HGB Conc 31.1 g/dL (31.5-36.5); Mean Corpuscular Volume 101 fL (80-100); Mean Platelet Volume 9.3 fL (9.1-12.4); NEUTROPHILS ABSOLUTE AUTO 11.42 K/mm3 (1.96-9.15); NEUTROPHILS PERCENT AUTO 85 % (41-73); NRBC ABSOLUTE 0.13 K/mm3 (0.00-0.02); Platelet Count 599 K/mm3 (150-400); RDW Coefficient Variation 18.4 % (11.7-14.2); RDW Standard Deviation 59.7 fL (35.1-46.3); Red Blood Cell Count 2.81 M/mm3 (4.30-5.90); White Blood Cell Count 13.43 K/mm3 (4.00-11.30)
--- NOTE | 2021-05-10 06:26 | NUR ---
SHIFT SUMMARY PT CONTINUES TO BE A&O X4. VSS. MONITOR SHOWING ST, HR 110's-120's. SPO2 > 92% ON 4-5L OXYMIZER. PT W/ 1 BRIEF EPISODE OF SPO2 DECREASE TO 88%, REQUIRING BRIEF INCREASE IN O2 TO 10L OXYMIZER FOR SPO2 > 90% UNTIL ABLE TO TITRATE BACK DOWN TO 5L. PT DENYING PAIN T/O SHIFT. PERICARDIAL DRAIN W/ DARK RED OUTPUT APPEARS UNCHANGED SINCE CARE ASSUMPTION. URESIL DRAIN TO LUQ APPEARS UNCHANGED WELL W/ SMALL AMOUNT OF CLEAR YELLOW/GREEN OUTPUT. LLQ PEG TUBE CLAMPED. NS GTT INFUSING PER ORDERS. WILL CONTINUE TO MONITOR UNTIL REPORT OFF TO DAY SHIFT RN.
[2021-05-10 06:42] LABS: Alanine Aminotransfer (ALT/SGP 235 U/L (12-78); Albumin, Blood 1.4 g/dL (3.4-5.0); Albumin/Globulin Ratio 0.3 (0.8-1.8); Alk Phos 104 U/L (50-136); Anion Gap 7 mmol/L (6-16); Aspartate Aminotrans (AST/SGOT 38 U/L (12-37); Bilirubin, Total 0.5 mg/dL (0.1-1.0); Blood Urea Nitrogen 20 mg/dL (8-24); CO2, Blood 23 mmol/L (21-32); Calcium, Blood 7.7 mg/dL (8.5-10.1); Chloride, Blood 114 mmol/L (98-108); Creatinine, Blood 0.95 mg/dL (0.60-1.20); Globulin, Blood 4.3 g/dL (2.2-4.0); Glomerular Filtration Rate >60 (60-); Glucose, Blood 72 mg/dL (70-99); Phosphorus, Blood 3.5 mg/dL (2.5-4.9); Potassium, Blood 3.2 mmol/L (3.5-5.5); Total Protein, Blood 5.7 g/dL (6.4-8.2)
[2021-05-10 07:00] LABS: Sodium, Blood 144 mmol/L (136-145)
--- NOTE | 2021-05-10 07:15 | NUR ---
Assumed care of pt at 0700. Report received from Kath MARTINEZ. Pt A&O x 4. Answers questions. Follows commands. Verbalizes needs. Pleasant and cooperative with care. ST per monitor, rate 109. BP stable. Pt on 4 LPM oxymizer. SpO2 90% or greater. Lungs have fine bibasilar crackles. Pericardial drain present with unchanged amount of drainage in container, per offgoing RN. J tube is clamped. Bed in lowest position. Call light in reach. Pt denies need at this time.
--- NOTE | 2021-05-10 08:30 | NUR ---
Placed call to Dr Davies to clarify orders for lasix and lovenox. Plan to hold both of these medications and provide pt with SCDs for VTE prophylaxis. Discussed pt's home medication regmin. Orders received for IV protonix.
[2021-05-10 09:32] LABS: Vancomycin, Trough 14.9 ug/mL (5.0-10.0)
--- NOTE | 2021-05-10 13:41 | NUR ---
Patient refuses SCDs. Discussed in-bed leg exercises and pt is agreeable to this.
--- NOTE | 2021-05-10 16:48 | NUR ---
I&O done and charted, no new output from pericardial drain or LUQ drain.
--- NOTE | 2021-05-10 18:26 | NUR ---
SUMMARY No acute changes t/o shift. Pt remains A&O x 4. Answers questions. Follows commands. Verbalizes needs. Pleasant and cooperative with care. Remains NPO. Tube feed and flushes started through J tube today. Pt tolerating well. Pt is down to 3 LPM NC. SpO2 90% or greater. ST per monitor, BP stable. Will continue to closely monitor until care handoff and bedside report with oncoming RN.
--- NOTE | 2021-05-10 20:00 | NUR ---
ASSUMED CARE OF PT AT 1915, REPORT RECEIVED AT BEDSIDE. PT PRESENTS IN BED. FLAT AFFECT THOUGH PLEASANT WITH CONVERSATION. DENIES PAIN OR NAUSEA. PERICARDIAL TUBE PRESENT WITH SEROUSAINGEOUS DRAINAGE. PANCREATIC/ABDOMINAL DRAIN IN PLACE SECURE AND PATENT. PEG TUBE WITH TUBE FEEDING AT GOAL. WILL REVIEW CHART AND PLAN OF CARE FOR THIS PT.
--- NOTE | 2021-05-11 01:00 | NUR ---
PT ABLE TO REST SOME THIS NIGHT. NO COMPLAINTS VOICED. DID NEED TO INCREASE O2 PER NASAL CANNULA TO 4 L/M WHILE PT SLEEPING. NO S/S ADVERSE REACTIONS TO ANTIBIOTIC THERAPIES.
[2021-05-11 04:01] LABS: Hemoglobin 8.8 g/dL (13.5-17.5); Mean Corpuscular HGB Conc 31.4 g/dL (31.5-36.5); Mean Corpuscular Volume 102 fL (80-100); Mean Platelet Volume 9.2 fL (9.1-12.4); NRBC ABSOLUTE 0.03 K/mm3 (0.00-0.02); NRBC Auto 0.2 /100 WBC (0.0-0.2); Platelet Count 600 K/mm3 (150-400); RDW Coefficient Variation 18.4 % (11.7-14.2); RDW Standard Deviation 61.3 fL (35.1-46.3); Red Blood Cell Count 2.75 M/mm3 (4.30-5.90); White Blood Cell Count 14.17 K/mm3 (4.00-11.30)
[2021-05-11 04:23] LABS: Magnesium, Blood 2.1 mg/dL (1.6-2.4)
[2021-05-11 04:24] LABS: Albumin, Blood 1.4 g/dL (3.4-5.0); Anion Gap 5 mmol/L (6-16); Blood Urea Nitrogen 15 mg/dL (8-24); Bun/Creatinine Ratio 16.9 (12.0-20.0); CO2, Blood 23 mmol/L (21-32); Calcium, Blood 7.8 mg/dL (8.5-10.1); Chloride, Blood 118 mmol/L (98-108); Creatinine, Blood 0.89 mg/dL (0.60-1.20); Glomerular Filtration Rate >60 (60-); Glucose, Blood 109 mg/dL (70-99); Phosphorus, Blood 2.6 mg/dL (2.5-4.9); Potassium, Blood 3.8 mmol/L (3.5-5.5); Sodium, Blood 146 mmol/L (136-145)
--- NOTE | 2021-05-11 06:30 | NUR ---
PT HAS MILD LEAKAGE AROUND FEEDING TUBE. DRAIN SPONGE APPLIED TO SITE. PT STATES AT HOME THIS TUBE DOES NOT LEAK. LESS THAN 20 ML DRAINAGE FROM PERICARDIAL TUBE. MINIMAL DRAINAGE FROM LEFT ABDOMINAL TUBE. VOIDS Q.S. NO ISSUES TO NOTE THIS SHIFT. WILL CONTINUE TO MONITOR PT, AND WILL REPORT OFF TO ONCOMING RN.
--- NOTE | 2021-05-11 11:09 | NUR ---
Echocardiogram completed.
--- NOTE | 2021-05-11 18:27 | NUR ---
PT TACHYCARDIC THROUGHOUT SHIFT WITH RATE 110 TO 120'S AND TACHYPNEIC WITH RATE 20'S TO 30'S; SATTING >92% ON 3LNC; PT AOX4 WITH SLOW SOFT SPEECH AND MODERATE WEAKNESS IN ALL 4 EXTREMITIES; PT'S PANCREATIC DRAIN APPEARS TO NOT HAVE ANY OUTPUT VIA LUMEN/BAG BUT BRIGHT BILIOUS DRAINAGE APPEARS TO SUPPURATE FROM OPENING OF PEG TUBE; PT REPORTS THAT SOMETIMES "IT DRAINS OUT THE PEG TUBE"; PT'S PEG TUBE APPEARS PATENT WITH BOLUS OF AIR AUSCULTATED OVER GASTRIC FUNDUS; DR. SAMANIEGO D/C'ED PT'S PERICARDIAL DRAIN AT 1420; TIP VISUALIZED INTACT AND SITE COVERED WITH TEGADERM; [facility] WAS CALLED AT 1020 CONCERNING PT'S MEDICAL RECORDS; DR. HICKS WAS NOTIFIED WHEN RECORDS WERE FAXED OVER, BY PHONE AT 1425; R HAND IV DRESSING CHANGED DUE TO LOOSENING; TUBE FEEDING TUBING CHANGED; PT'S FATHER VISITED AND RECEIVED UPDATES; PT'S STATUS CHANGED TO PCU; PT DENIES ADDITIONAL CONCERNS AT THIS TIME
--- NOTE | 2021-05-12 03:57 | NUR ---
PATIENT IS ALERT AND ORIENTATED, UPON SHIFT CHANGE WITH JUAN WALTER PATIENT J-TUBE HAD BLANCHABLE AND NONBLANCHABLE SKIN BREAKDOWN AROUND THE INSERTION SITE AND 1/2 INCH OUTSIDE THE BUMPER, THIS LN PUT ON DUODERM TO PROTECT SKIN, PICTURE WAS TAKEN. PATIENT HAS TUBE FEED RUNNING AT 50ML/HR AT GOAL WITH NO S/SX OF DISCOMFORT AND/OR RESIDUAL, PATIENT REMAINING AT 30 DEGREES HOB, HAD BM X 1, WAS ABLE TO TURN HIMSELF IN BED AND ASSIST WITH MOBILITY. HEART RATE HAS BEEN 110-129 THIS EVENING, STABLE BLOOD PRESSURES AND AFEBRILE AT THE END OF SHIFT. PATIENT IS EAGER TO BE DISCHARGED TO MAKE HIS APPOINTMENT ON FRIDAY FOR [facility], WILL PASS ON TO DAYSHIFT RN.
[2021-05-12 08:18] LABS: BASOPHILS ABSOLUTE AUTO 0.04 K/mm3 (0.00-0.23); BASOPHILS PERCENT AUTO 0 % (0-2); EOSINOPHILS ABSOLUTE AUTO 0.87 K/mm3 (0.00-0.68); EOSINOPHILS PERCENT AUTO 5 % (0-6); Hematocrit 31.1 % (37.0-53.0); Hemoglobin 9.3 g/dL (13.5-17.5); IMMATURE GRAN ABSOLUTE AUTO 0.14 K/mm3 (0.00-0.10); IMMATURE GRAN PERCENT AUTO 1 % (0-1); LYMPHOCYTES ABSOLUTE AUTO 1.17 K/mm3 (0.84-5.20); LYMPHOCYTES PERCENT AUTO 7 % (21-46); MONOCYTES ABSOLUTE AUTO 1.01 K/mm3 (0.16-1.47); MONOCYTES PERCENT AUTO 6 % (4-13); Mean Corpuscular HGB 30.6 pg (26.0-34.0); Mean Corpuscular HGB Conc 29.9 g/dL (31.5-36.5); Mean Corpuscular Volume 102 fL (80-100); Mean Platelet Volume 8.7 fL (9.1-12.4); NEUTROPHILS ABSOLUTE AUTO 14.64 K/mm3 (1.96-9.15); NEUTROPHILS PERCENT AUTO 82 % (41-73); NRBC ABSOLUTE 0.02 K/mm3 (0.00-0.02); NRBC Auto 0.1 /100 WBC (0.0-0.2); Platelet Count 569 K/mm3 (150-400); RDW Coefficient Variation 16.8 % (11.7-14.2); Red Blood Cell Count 3.04 M/mm3 (4.30-5.90); White Blood Cell Count 17.87 K/mm3 (4.00-11.30)
[2021-05-12 08:43] LABS: Vancomycin, Trough 16.2 ug/mL (5.0-10.0)
[2021-05-12 08:52] LABS: Alanine Aminotransfer (ALT/SGP 117 U/L (12-78); Albumin, Blood 1.4 g/dL (3.4-5.0); Albumin/Globulin Ratio 0.3 (0.8-1.8); Alk Phos 81 U/L (50-136); Anion Gap 5 mmol/L (6-16); Aspartate Aminotrans (AST/SGOT 21 U/L (12-37); Bilirubin, Direct <0.1 mg/dL (0.0-0.3); Bilirubin, Indirect Unable to Calculate mg/dL (0.1-0.7); Bilirubin, Total 0.3 mg/dL (0.1-1.0); Blood Urea Nitrogen 10 mg/dL (8-24); CO2, Blood 25 mmol/L (21-32); Calcium, Blood 7.9 mg/dL (8.5-10.1); Chloride, Blood 112 mmol/L (98-108); Creatinine, Blood 0.77 mg/dL (0.60-1.20); Globulin, Blood 4.6 g/dL (2.2-4.0); Glomerular Filtration Rate >60 (60-); Glucose, Blood 122 mg/dL (70-99); Phosphorus, Blood 2.7 mg/dL (2.5-4.9); Sodium, Blood 142 mmol/L (136-145)
--- NOTE | 2021-05-12 12:12 | NUR ---
Echocardiogram completed
--- NOTE | 2021-05-12 14:11 | NUR ---
IV INFILTRATE IV INFILTRATED WHILE RUNNING VANCO. PHARMACY NOTIFIED. INSTRUCTED TO PROVIDE WARM HEAT AND TO CONT TO MONITOR.
--- NOTE | 2021-05-12 17:35 | NUR ---
SHIFT SUMMARY PT ALERT AND ORIENTED. PT ABLE TO TURN SELF IN BED NEEDED. HR TACHY, PHYSICIAN AWARE. BP STABLE. NO CP OR PRESSURE. PT SBA. TUBE FEED RUNNING AT 50 ML/HR. PT TOLERATING WELL. SKIN AROUND J TUBE IS RED, PHYSICIAN AWARE. DRESSING APPLIED. DRESSING CHANGED FOR PANCREATIC DRAIN. DRESSING'S C/D/I. PT HAS FREQUENT LOOSE BM'S. PHYSICIAN AWARE. STOOL SAMPLE SENT TO R/O CDIFF. PT NOW IN ISOLATION DURING RULE OUT. PT'S FATHER AT BEDSIDE. UNABLE TO OBTAIN 2 IV'S. MANAGER PROCESS EXCELLENCE AWARE. PT REPORTS NO PAIN T/O SHIFT. WILL CONT TO MONITOR UNTIL REPORT GIVEN TO NIGHTSHIFT RN.
--- NOTE | 2021-05-12 19:24 | NUR ---
UPDATE ASSESSED TO SEE IF PT HAD RESIDUAL AMOUNT WITH TUBE FEEDING. NO RESIDUAL AT THIS TIME. IV INFILTRATION SPOT WRAPPED IN WARM BLANKET. REPORT GIVEN TO JUAN DIAZ.
--- NOTE | 2021-05-12 20:04 | NUR ---
IV IS A 20 GAUGE IN PATIENT'S R FA.
--- NOTE | 2021-05-12 21:35 | NUR ---
PATIENT A/OX3. DENIES PAIN. FLAT AFFECT. STATES HE NEEDS TO BE DISCHARGED FROM THE HOSPITAL WITHIN THE NEXT FEW DAYS BECAUSE HE HAS AN APPOINTMENT AT [facility] ON FRIDAY. ATTEMPTED TO HAVE HIM ON ROOM AIR BUT SPO2 WAS AT 90-91%. SPO2 UP TO 93% ON 1L O2 VIA NC. SINUS TACH ON TELE. DENIES CHEST PAIN OR DIFFICULTY BREATHING. CHANGED DRESSING TO J-TUBE SITE, DRESSING HAD MOD AMOUNT GREEN DRAINAGE ON IT. SKIN BELOW J-TUBE BUTTON IS RED WITH SMALL AREAS OF YELLOW DISCHARGE. BUTTON IS SECURED WITH TWO SUTURES. PLACED NONADHERANT PAD AND COVERED WITH DRAIN GAUZE AND SECURED WITH MEDIPORE TAPE. NO RESIDUAL NOTED. DENIES ABD PAIN. STATES HE IS ABLE TO HAVE A LIQUID DIET AT HOME. DRAIN TO L ABDOMEN WITH SMALL AMT SEROSANGUINOUS FLUID, STATES DRAIN WAS PLACED WHEN A BENIGN PANCREATIC TUMOR WAS REMOVED. ABLE TO REPOSITION HIMSELF IN BED. WARM BLANKET PLACED TO LEFT FOREARM LEFT FOREARM IS SORE FROM IV INFILTRATION. CALL LIGHT IN REACH. BED ALARM ON.
[2021-05-13 06:19] LABS: Campylobacter Sp Not Detected (NOT DETECT); Plesiomonas Shigelloides Not Detected (NOT DETECT)
[2021-05-13 06:20] LABS: Adenovirus F 40/41 Not Detected (NOT DETECT); Astrovirus Not Detected (NOT DETECT); Cryptosporidium Not Detected (NOT DETECT); Cyclospora Cayetanensis Not Detected (NOT DETECT); E. Coli O157 Not Detected (NOT DETECT); Entamoeba Histolytica Not Detected (NOT DETECT); Enteroaggregative E. coli-EAEC Not Detected (NOT DETECT); Enteropathogenic E. coli-EPEC Not Detected (NOT DETECT); Enterotoxigenic E. coli-ETEC Not Detected (NOT DETECT); Giardia Lamblia Not Detected (NOT DETECT); Norovirus GI/GII Not Detected (NOT DETECT); Rotavirus A Not Detected (NOT DETECT); Salmonella Sp Not Detected (NOT DETECT); Sapovirus Not Detected (NOT DETECT); Shiga Toxin-prod E. coli-STEC Not Detected (NOT DETECT); Shigella/Enteroin E. coli-EIEC Not Detected (NOT DETECT); Vibrio Cholerae Not Detected (NOT DETECT); Vibrio Sp Not Detected (NOT DETECT); Yersinia Enterocolitica Not Detected (NOT DETECT)
--- NOTE | 2021-05-13 06:48 | NUR ---
SHIFT SUMMARY: PATIENT A/OX3. HAS DENIED PAIN THROUGHOUT THE SHIFT. ON 1L O2 VIA NC. ATTEMPTED TO HAVE HIM ON ONLY ROOM AIR BUT SPO2 DECREASED TO UPPER 80'S ON ROOM AIR. SINUS TACH ON MONITOR. DENIES CHEST PAIN. TUBE FEEDING INFUSING PER ORDERS, NO ABD PAIN, NO RESIDUALS THIS SHIFT. DRESSING CHANGED TO J TUBE SITE. PANCREATIC DRAIN WITH SCANT AMT OUTPUT. HE WANTS TO GO HOME SO THAT HE CAN GO TO HIS APPOINTMENT AT [facility] ON FRIDAY. WILL CONTINUE TO MONITOR AND REPORT TO ONCOMING RN.
--- NOTE | 2021-05-13 10:42 | NUR ---
PT IS SOMEWHAT WITHDRAWN EMOTIONALLY AND DENIES ANY DISTRESS. PT PANCREATIC DRAIN IS INTACT WITH MINIMAL DRAINAGE NOTED AND PER PT HX. PT HAS IV VIA RFA AND NS TKO WITH ABX. PT IS ABLE TO VOID. HOB IS ELEVATED 25%+ AND PT IS MAINTAINING NPO STATUS, WITH TF NOTED. NO ABD PAIN OR DISTRESS NOTED. MOTHER OF PT CALLED IN FOR A STATUS REPORT. PEG/ J-TUBE IS PATENT AND DSG IS D/I
[2021-05-13 11:15] LABS: Hematocrit 30.5 % (37.0-53.0); Hemoglobin 9.4 g/dL (13.5-17.5); Mean Corpuscular HGB 30.6 pg (26.0-34.0); Mean Corpuscular HGB Conc 30.8 g/dL (31.5-36.5); Mean Corpuscular Volume 99 fL (80-100); Mean Platelet Volume 8.8 fL (9.1-12.4); Platelet Count 503 K/mm3 (150-400); RDW Coefficient Variation 15.5 % (11.7-14.2); RDW Standard Deviation 54.3 fL (35.1-46.3); Red Blood Cell Count 3.07 M/mm3 (4.30-5.90); White Blood Cell Count 11.44 K/mm3 (4.00-11.30)
[2021-05-13 11:36] LABS: Albumin, Blood 1.5 g/dL (3.4-5.0); Anion Gap 4 mmol/L (6-16); Blood Urea Nitrogen 9 mg/dL (8-24); CO2, Blood 27 mmol/L (21-32); Calcium, Blood 8.3 mg/dL (8.5-10.1); Chloride, Blood 110 mmol/L (98-108); Creatinine, Blood 0.75 mg/dL (0.60-1.20); Glomerular Filtration Rate >60 (60-); Glucose, Blood 98 mg/dL (70-99); Phosphorus, Blood 2.9 mg/dL (2.5-4.9); Potassium, Blood 4.3 mmol/L (3.5-5.5); Sodium, Blood 141 mmol/L (136-145)
[2021-05-13] MEDS ORDERED: AMOCLA875 PO (12:50)
--- NOTE | 2021-05-13 13:56 | NUR ---
PT DISCHARGE INSTRUCTIONS GIVEN. IV REMOVED INTACT. VSS. PT REFUSED LACTOBAC MEDICATION HE HAS HOME DOSE. FAMILY WAS CALLED FOR RIDE BY PT. PT BELONGINGS SENT HOME. PT INSTRUCTED TO CALL FOR F/U DR APPOINTMENTS DUE TO PT COMPLICATED SCHEDULE. PT VERBALIZED UNDERSTANDING AND IMPORTANCE.
--- NOTE | 2021-05-13 14:48 | NUR ---
Palliative care consult requested by Dr. Crisostomo. Pt is dressed and sitting in a bedside chair ready to go home. His mother is present as well and has questions re: his medications and status of his pneumonia. Requested that Martin, pt's nurse, address mother's questions re: the discharge instructions and diagnosis. Met briefly with pt and mother per PC order trigger of AD/POLST, medically fragile and end stage disease. Pt's mother dismissive of PC, did not give eye contact to this brief writer. She expresses that they are not interested in discussing advanced care planning prior to discharge or as an outpatient as part of the [facility] program. "He's not dying today. He's tried dying a bunch of times in this hospital before and it's not happened." Wished them well and updated nursing who will answer pt's mother's questions prior to discharge.
--- NOTE | 2021-05-13 15:18 | NUR ---
PT WAS DISCHARGED TO HOME AT PT ENTRANCE 1415 VIA W/C TO FAMILY CAR. PT MOTHER WAS CALLED AND ARRANGED FOR PT TUBE FEEDING CASE TO BE PICKED UP 05/14/21 IN AM. [employer]AMINATED [employer] CONSULTANT NOTIFIED.
== END 2021-05-13 14:05 | disposition home or self-care (01) | DRG 314 ==
LOC: ER 04:05 → PCU 06:17 → ICUE 06:17 → ICUW 14:29 → ICUE 14:37
PROVIDERS: Emergency Medicine; Internal Medicine; Internal Medicine Cardiovascular Disease; ADMIT Internal Medicine
PROC: 0W9D30Z Drainage of Pericardial Cavity with Drainage Device, Percutaneous Approach (ICD-10-PCS; principal; 2021-05-09)
PROC: 30233N1 Transfusion of Nonautologous Red Blood Cells into Peripheral Vein, Percutaneous Approach (ICD-10-PCS; 2021-05-09)
DX: I31.3 Pericardial effusion (noninflammatory) (principal); A41.9 Sepsis, unspecified organism; J18.9 Pneumonia, unspecified organism; J96.01 Acute respiratory failure with hypoxia; K85.90 Acute pancreatitis without necrosis or infection, unspecified; R65.20 Severe sepsis without septic shock; D62 Acute posthemorrhagic anemia; E87.1 Hypo-osmolality and hyponatremia; E87.0 Hyperosmolality and hypernatremia; R19.7 Diarrhea, unspecified; R13.10 Dysphagia, unspecified; I95.9 Hypotension, unspecified; E87.6 Hypokalemia; F17.210 Nicotine dependence, cigarettes, uncomplicated; Z79.899 Other long term (current) drug therapy; Z93.1 Gastrostomy status; Z87.820 Personal history of traumatic brain injury
CPT/HCPCS: 0097U; 33016; 36415; 36430; 71045; 71260; 74018; 74177; 76937; 80048; 80053; 80069; 80202; 82042; 82248; 82550; 82945; 83605; 83615; 83735; 83880; 83986; 84100; 84145; 84157; 84478; 84484; 85014; 85018; 85025; 85027; 86850; 86900; 86901; 86923; 87015; 87040; 87070; 87075; 87102; 87116; 87205; 87206; 87252; 87254; 88108; 88305; 88342; 89051; 93005; 93010; 93306; 93308; 93321; 96374-59; 96375-59; 99152; 99153; 99285-25; A9270; C1769; C1894; C9113; J0692; J1644; J1650; J1940; J1956; J2250; J2405; J2543; J3010; J3370; J3480; J7030; P9016; Q9967

== ENCOUNTER → 2023-11-13 | Outpatient (CLI) | payer OTHER ==
[~2023-11-13] MED LIST changes: +1/2 NS 250ml250 ML; +ASPI81CH PO; +ONDA4 PT
[2023-11-25 15:44] LABS: Stool Occult Bld Immuno 1 Negative (NEGATIVE)
== END ==
LOC: LAB 12:00 → LAB SHORT 12:00
PROVIDERS: Physician Assistant
DX: Z12.11 Encounter for screening for malignant neoplasm of colon (principal)
CPT/HCPCS: G0328